=== PATIENT | female | born 1935 | race Caucasian/White ===

== ENCOUNTER → 2016-07-31 | Outpatient (CLI) | payer BC ==
[~2016-07-31] MED LIST: ADVIN10/60 INH; ALBU1AER9 INH; AMT10 PO; BISA1TAB15 PO; CHOL20009 PO; CLR10 PO; DICL1GEL12 TOP; DOCU100C31 PO; ENAL10TA PO; FAMO1TAB68 PO; FRRG PO; GLC500 PO; HYDR-3714 PO; IBUP-1428 PO; INSUINJ12 SC; IPRA1AER2 INH; LACT1CAP6 PO; LATA0.009 OPB; LPR25 PO; MULT-225 PO; NRN/300 PO; NVLGI/PEN SC; SIMV20TA5 PO; XRL10 PO
[2016-07-31 14:01] LABS: ESTIMATED AVERAGE GLUCOSE 169 mg/dl; HA1C FLAG Normal (Normal)
== END | disposition home or self-care (01) ==
LOC: C.LABBC 11:19
PROVIDERS: ATTEND Nurse Practitioner Family
DX: E11.49 Type 2 diabetes mellitus with other diabetic neurological complication (principal); E55.9 Vitamin D deficiency, unspecified

== ENCOUNTER → 2016-11-09 | Outpatient (CLI) | payer BC ==
[2016-11-10 06:13] LABS: ESTIMATED AVERAGE GLUCOSE 128 mg/dl; HA1C FLAG Normal (Normal)
== END | disposition home or self-care (01) ==
LOC: C.LABBC 14:27
PROVIDERS: ATTEND Nurse Practitioner Family
DX: E11.65 Type 2 diabetes mellitus with hyperglycemia (principal)

== ENCOUNTER → 2016-12-09 | Outpatient (CLI) | payer BC ==
[2016-12-09 13:21] LABS: BASO % 0.5 %; BASO ABS # 0.07 K/uL (0-0.2); COMPLETE YES; EOS % 2.4 %; HEMATOCRIT 39.3 % (37-47); IG% 0.4 %; LYMPH % 15.9 %; LYMPH ABS # 2.22 K/uL (1.2-3.4); MEAN CELL VOLUME 81.4 fL (80-100); MEAN CORPUSCULAR HEMOGLOBIN 23.6 pg (25-34); MEAN PLATELET VOLUME 10.2 fL (7.4-10.4); MONO % 5.6 %; NEUT % 75.2 %; PLATELET COUNT 242 K/uL (130-400); RED BLOOD COUNT 4.83 M/uL (4.2-5.4)
[2016-12-09 13:33] LABS: BLOOD UREA NITROGEN 22 mg/dl (7-18); BUN/CREATININE RATIO 28.7 (10-20); CALCIUM 9.8 mg/dl (8.5-10.1); CARBON DIOXIDE 29 mmol/L (21-32); CHLORIDE 104 mmol/L (98-107); CREATININE 0.77 mg/dl (0.60-1.20); GLUCOSE 92 mg/dl (70-99); PHOSPHORUS 3.6 mg/dl (2.5-4.9); SODIUM 142 mmol/L (136-145); URINE APPEARANCE CLEAR (CLEAR); URINE BILIRUBIN NEG (NEG); URINE COLOR YELLOW; URINE NITRITE NEG (NEG); URINE SPECIFIC GRAVITY 1.016 (1.000-1.030); UROBILINOGEN NEG (NEG); ZZUR CULT IF INDIC CLEAN CATCH NO
[2016-12-09 13:43] LABS: MANUAL MICROSCOPIC REQUIRED? NO; REVIEW REQ? NO
[2016-12-09 14:02] LABS: URINE PROTIEN/CREAT RATIO 1.3 (0-0.2); URINE TOTAL PROTEIN 72.3 mg/dl (0-11.9)
--- NOTE | 2016-12-14 07:23 | CODING QUERY MEDICAL NECESSITY ---
SUPPORTING DIAGNOSIS NEEDED A supporting diagnosis is required for the test/procedure performed on this patient in order for us to be reimbursed by the patient's insurance. Please provide a supporting diagnosis for the following test/procedure listed below next to the test name along with your signature. *If there is no additional diagnosis for this patient that would support the following test/procedure please document that below next to the test/procedure. Test(s)/Procedure(s) that require a supporting diagnosis: * VITAMIN D, 25- HYDROXY DIAGNOSIS: Provider Signature: Date: Thank you Ava Callahan [employer] Once completed, please kindly fax back to [phone] For questions please call [phone]
== END | disposition home or self-care (01) ==
LOC: C.LABBC 11:22
PROVIDERS: ATTEND Internal Medicine Nephrology
DX: E11.21 Type 2 diabetes mellitus with diabetic nephropathy (principal); E55.9 Vitamin D deficiency, unspecified

== ENCOUNTER → 2016-12-31 | Outpatient (CLI) | payer BC ==
--- NOTE | 2016-12-31 16:14 | DIAGNOSTIC IMAGING REPORT ---
CHEST 2 VIEWS ROUTINE CLINICAL HISTORY: J45.909 [id number] cough. Dyspnea. COMPARISON STUDY: 11/11/2015 FINDINGS: Vague parenchymal infiltrate right as well as left base. Diaphragms are smooth. Mid and upper lungs are clear. Partial right middle lobe atelectatic change IMPRESSION: Mild bibasilar parenchymal infiltrative change. Partial right middle lobe atelectatic change The above report was generated using voice recognition software. It may contain grammatical, syntax or spelling errors. Electronically signed by: Christiano Galeano M.D. 12/31/2016 4:13 PM Dictated Date/Time: 12/31/2016 4:10 PM
== END | disposition home or self-care (01) ==
LOC: C.RADBC 15:50
PROVIDERS: ATTEND Internal Medicine
DX: J45.909 Unspecified asthma, uncomplicated (principal); R09.02 Hypoxemia

== ENCOUNTER → 2017-02-15 | Outpatient (CLI) | payer BC ==
--- NOTE | 2017-02-15 15:09 | DIAGNOSTIC IMAGING REPORT ---
CHEST 2 VIEWS ROUTINE HISTORY: J18.9 [id number] COMPARISON: Chest 12/31/2016. FINDINGS: The right middle lobe consolidation/atelectasis has essentially resolved in the interval. No new focal lung consolidations to suggest pneumonia. No evidence for pulmonary edema. No pleural effusions. No pneumothorax. Stable mild cardiomegaly. Mild bibasilar interstitial thickening is likely chronic. IMPRESSION: The right middle lobe consolidation/atelectasis has essentially resolved in the interval. No new focal lung consolidations to suggest pneumonia. Electronically signed by: Kieran Phillips M.D. 02/15/2017 3:07 PM Dictated Date/Time: 02/15/2017 3:04 PM
[2017-02-15 16:47] LABS: BASO % 0.4 %; BASO ABS # 0.05 K/uL (0-0.2); COMPLETE YES; EOS % 1.6 %; HEMATOCRIT 35.1 % (37-47); IG% 0.4 %; LYMPH % 13.6 %; LYMPH ABS # 1.88 K/uL (1.2-3.4); MEAN CELL VOLUME 82.8 fL (80-100); MEAN CORPUSCULAR HEMOGLOBIN 25.5 pg (25-34); MEAN CORPUSCULAR HGB CONC 30.8 g/dl (32-36); MEAN PLATELET VOLUME 10.9 fL (7.4-10.4); MONO % 5.6 %; NEUT % 78.4 %; PLATELET COUNT 193 K/uL (130-400); RED BLOOD COUNT 4.24 M/uL (4.2-5.4); WHITE BLOOD COUNT 13.84 K/uL (4.8-10.8)
[2017-02-15 16:53] LABS: BLOOD UREA NITROGEN 20 mg/dl (7-18); BUN/CREATININE RATIO 24.4 (10-20); CALCIUM 9.7 mg/dl (8.5-10.1); CARBON DIOXIDE 31 mmol/L (21-32); CHLORIDE 103 mmol/L (98-107); GLUCOSE 111 mg/dl (70-99); MAGNESIUM 1.5 mg/dl (1.8-2.4); POTASSIUM 3.7 mmol/L (3.5-5.1); SODIUM 140 mmol/L (136-145)
[2017-02-15 17:01] LABS: PHOSPHORUS 3.1 mg/dl (2.5-4.9); TOTAL IRON BINDING CAPACITY 488 mcg/dl (250-450)
[2017-02-15 17:18] LABS: URINE PROTIEN/CREAT RATIO 0.3 (0-0.2); URINE TOTAL PROTEIN 45.1 mg/dl (0-11.9)
[2017-02-16 08:17] LABS: ESTIMATED AVERAGE GLUCOSE 143 mg/dl; HA1C FLAG Normal (Normal)
[2017-02-18 08:23] LABS: ALBUMIN 3.6 G/DL (3.8-4.8); ALBUMIN % 79.55 %; ALPHA-2-GLOBULIN % 5.56 %; BETA GLOBULIN % 8.55 %; CREATININE UR 159 MG/DL (20-320); FREE KAPPA 21.3 MG/L (3.3-19.4); FREE KAPPA/LAMBDA RATIO 0.97 (0.26-1.65); FREE LAMBDA 21.9 MG/L (5.7-26.3); GAMMA GLOBULIN % 5.05 %; TOTAL PROTEIN 7.3 G/DL (6.2-8.3)
== END | disposition home or self-care (01) ==
LOC: C.RADBC 14:33
PROVIDERS: ATTEND Physician Assistant
DX: J18.9 Pneumonia, unspecified organism (principal); R80.9 Proteinuria, unspecified; D64.9 Anemia, unspecified; E11.65 Type 2 diabetes mellitus with hyperglycemia

== ENCOUNTER → 2017-02-16 | Outpatient (CLI) | payer BC ==
[2017-02-16 14:41] LABS: CHOLESTEROL/HDL RATIO 3.6
== END | disposition home or self-care (01) ==
LOC: C.LABBC 11:19
PROVIDERS: ATTEND Nurse Practitioner Family
DX: E11.65 Type 2 diabetes mellitus with hyperglycemia (principal)

== ENCOUNTER → 2017-05-24 | Outpatient (CLI) | payer BC ==
[2017-05-25 06:16] LABS: ESTIMATED AVERAGE GLUCOSE 146 mg/dl; HA1C FLAG Normal (Normal)
== END | disposition home or self-care (01) ==
LOC: C.LABBC 13:06
PROVIDERS: ATTEND Nurse Practitioner Family
DX: E11.65 Type 2 diabetes mellitus with hyperglycemia (principal)

== ENCOUNTER → 2017-08-15 | Outpatient (CLI) | payer BC ==
[2017-08-15 13:26] LABS: BASO % 0.4 %; BASO ABS # 0.05 K/uL (0-0.2); EOS % 2.7 %; EOS ABS # 0.32 K/uL (0-0.5); HEMATOCRIT 35.5 % (37-47); HEMOGLOBIN 10.8 g/dL (12.0-16.0); IG# 0.05 K/uL (0.00-0.02); LYMPH % 14.4 %; LYMPH ABS # 1.73 K/uL (1.2-3.4); MEAN CORPUSCULAR HEMOGLOBIN 24.9 pg (25-34); MEAN CORPUSCULAR HGB CONC 30.4 g/dl (32-36); MEAN PLATELET VOLUME 10.3 fL (7.4-10.4); MONO % 5.2 %; MONO ABS # 0.63 K/uL (0.11-0.59); NEUT % 76.9 %; NEUT ABS # 9.25 K/uL (1.4-6.5); PLATELET COUNT 201 K/uL (130-400); RED CELL DISTRIBUTION WIDTH CV 16.4 % (11.5-14.5); RED CELL DISTRIBUTION WIDTH SD 49.5 fL (36.4-46.3); WHITE BLOOD COUNT 12.03 K/uL (4.8-10.8)
[2017-08-15 13:41] LABS: ALBUMIN 3.3 gm/dl (3.4-5.0); BLOOD UREA NITROGEN 12 mg/dl (7-18); CALCIUM 9.8 mg/dl (8.5-10.1); CARBON DIOXIDE 28 mmol/L (21-32); CREATININE 0.77 mg/dl (0.60-1.20); GLUCOSE 270 mg/dl (70-99); POTASSIUM 3.8 mmol/L (3.5-5.1); SODIUM 136 mmol/L (136-145)
[2017-08-15 13:42] LABS: PHOSPHORUS 2.8 mg/dl (2.5-4.9)
== END | disposition home or self-care (01) ==
LOC: C.LABBC 11:03
PROVIDERS: ATTEND Internal Medicine Nephrology
DX: N18.1 Chronic kidney disease, stage 1 (principal)

== ENCOUNTER → 2017-09-08 | Outpatient (CLI) | payer BC | END | disposition home or self-care (01) | LOC: C.LAB1850 15:02 | PROVIDERS: ATTEND Internal Medicine | DX: E11.9 Type 2 diabetes mellitus without complications (principal) ==

== ENCOUNTER → 2018-02-01 | Outpatient (CLI) | payer BC ==
[2018-02-01 17:19] LABS: BASO % 0.6 %; BASO ABS # 0.07 K/uL (0-0.2); EOS % 2.8 %; EOS ABS # 0.32 K/uL (0-0.5); HEMATOCRIT 38.6 % (37-47); HEMOGLOBIN 11.7 g/dL (12.0-16.0); IG# 0.03 K/uL (0.00-0.02); LYMPH % 24.2 %; LYMPH ABS # 2.77 K/uL (1.2-3.4); MEAN CELL VOLUME 81.6 fL (80-100); MEAN CORPUSCULAR HEMOGLOBIN 24.7 pg (25-34); MEAN CORPUSCULAR HGB CONC 30.3 g/dl (32-36); MEAN PLATELET VOLUME 11.1 fL (7.4-10.4); MONO ABS # 0.57 K/uL (0.11-0.59); NEUT % 67.1 %; NEUT ABS # 7.69 K/uL (1.4-6.5); PLATELET COUNT 216 K/uL (130-400); RED CELL DISTRIBUTION WIDTH SD 54.3 fL (36.4-46.3); WHITE BLOOD COUNT 11.45 K/uL (4.8-10.8)
[2018-02-01 17:33] LABS: ALBUMIN 3.3 gm/dl (3.4-5.0); ALKALINE PHOSPHATASE 70 U/L (45-117); ALT/SGPT 19 U/L (12-78); AST/SGOT 16 U/L (15-37); BLOOD UREA NITROGEN 18 mg/dl (7-18); CALCIUM 9.5 mg/dl (8.5-10.1); CARBON DIOXIDE 27 mmol/L (21-32); CHOLESTEROL 219 mg/dl (0-200); CREATININE 0.94 mg/dl (0.60-1.20); GLUCOSE 313 mg/dl (70-99); LDL CHOLESTEROL CALCULATED 104 mg/dl; POTASSIUM 4.2 mmol/L (3.5-5.1); SODIUM 134 mmol/L (136-145); TOTAL PROTEIN 8.1 gm/dl (6.4-8.2)
[2018-02-02 06:03] LABS: HEMOGLOBIN A1C 9.7 % (4.5-5.6)
== END | disposition home or self-care (01) ==
LOC: C.LABBC 12:19
PROVIDERS: ATTEND Internal Medicine
DX: I12.9 Hypertensive chronic kidney disease with stage 1 through stage 4 chronic kidney disease, or unspecified chronic kidney disease (principal); E78.5 Hyperlipidemia, unspecified; I48.0 Paroxysmal atrial fibrillation; J44.9 Chronic obstructive pulmonary disease, unspecified; E11.21 Type 2 diabetes mellitus with diabetic nephropathy; R09.02 Hypoxemia; E11.29 Type 2 diabetes mellitus with other diabetic kidney complication; N18.1 Chronic kidney disease, stage 1

== ENCOUNTER 2021-08-03 15:41 | Observation (INO) ==
[2021-08-03] MEDS ORDERED: fentaNYL citrate 100 MCG/2 ML VIAL IV STA ×2 (16:06→20:49)
[2021-08-03] MEDS ORDERED: ACETAMINOPHEN 1,000 MG/100 ML VIAL IV STA (16:06)
--- NOTE | 2021-08-03 16:10 | Emergency Department Note ---
History of Present Illness General Chief complaint: Fall Time Seen by Provider: 08/03/21 15:59 Source: patient Mode of arrival: EMS Limitations: no limitations History of Present Illness Provider complaint: head injury Associated symptoms: + headaches; no chest pain, no fever/chills or no nausea/vomiting Treatments prior to arrival: none This is a 6-year female presents emergency department following a fall with head trauma. Patient states she was seated on a rolling walker as her friend had taken her to a recent appointment. She states she fell backwards off the walker striking her head. Patient denies loss of consciousness. Patient states she does have a headache and feels a bump growing on the back of her head, however denies neck or back pain, nausea or vomiting, dizziness, or blurred vision. Patient does not believe she takes any antiplatelet or anticoagulation therapy. Patient denies any other concern for injury or other areas of pain. Patient was noted by nursing staff to have markedly elevated blood pressure. Patient believes her blood pressure is usually normal. Patient is uncertain if she takes medication specifically for blood pressure. Pt seen during a time of high acuity and national emergency pandemic while wearing PPE. Home Medications Medication Instructions Recorded Confirmed Type acetaminophen 650 mg 1,300 mg PO Q12H 08/22/18 08/03/21 History tablet,extended release (Tylenol Arthritis Pain) albuterol sulfate 90 mcg/actuation 2 puff INHALATION Q6H PRN 08/22/18 08/03/21 History aerosol inhaler (ProAir HFA) loratadine 10 mg capsule 10 mg PO DAILY PRN 08/22/18 08/03/21 History multivitamin 1 tab PO QAM 08/22/18 08/03/21 History polyethylene glycol 3350 17 gram 17 g PO DAILY PRN 08/22/18 08/03/21 History oral powder packet (Miralax) rivaroxaban 20 mg tablet (Xarelto) 20 mg PO DAILY 08/22/18 08/03/21 History Lactobacillus 1 cap PO DAILY cap 03/13/19 08/03/21 History acidophilus-Bifidobac.animalis 31 billion cell capsule bisacodyl 5 mg tablet,delayed 5 mg PO DAILY PRN tab 03/13/19 08/03/21 History release blood-glucose meter (OneTouch #1 ea 03/13/19 08/03/21 History Verio Flex Start) metoprolol succinate 25 mg 25 mg PO BID tab 03/13/19 08/03/21 History tablet,extended release 24 hr lidocaine HCl 2 % mucosal solution 1 appln MUCOUS MEMBRANE TID PRN 11/20/19 08/03/21 Rx (Lidocaine Viscous) #100 ml docusate sodium 100 mg capsule 100 mg PO QAM PRN 12/19/19 08/03/21 History fluticasone 100 mcg-salmeterol 50 1 puffs INHALATION BID PRN ea 12/19/19 08/03/21 History mcg/dose blistr powdr for inhalation (Advair Diskus) ramipril 10 mg capsule 10 mg PO QAM #30 cap 06/18/20 08/03/21 Rx OneTouch Verio test strips (blood #400 ea NS 09/29/20 08/03/21 Rx sugar diagnostic) cholecalciferol (vitamin D3) 50 12,000 unit PO DAILY tab 12/15/20 08/03/21 History mcg (2,000 unit) tablet (Vitamin D3) metformin 500 mg tablet,extended 500 mg PO BID 12/29/20 08/03/21 History release 24 hr Humulin 70/30 U-100 Insulin See Rx Instructions SQ QAM #30 ml 01/05/21 08/03/21 Rx KwikPen 100 unit/mL subcutaneous NS (insulin NPH and regular human) rosuvastatin 40 mg tablet 40 mg PO DAILY #90 tab 04/09/21 08/03/21 Rx Novofine 32 32 gauge x 1/4" needle #200 ea NS 04/27/21 08/03/21 Rx (pen needle, diabetic) tramadol 50 mg tablet 100 mg PO TID PRN #180 tab 06/18/21 08/03/21 Rx oxybutynin 3.9 mg/24 hr semiweekly See Rx Instructions .ROUTE 06/26/21 08/03/21 Rx transdermal patch (Oxytrol) .COMPLEX #8 patch diclofenac sodium 1 % topical gel 4 g TOPICAL QID PRN g 07/10/21 08/03/21 History duloxetine 20 mg capsule,delayed 20 mg PO QAM #30 cap 07/10/21 08/03/21 Rx release estradiol See Rx Instructions VAGINAL 07/10/21 08/03/21 History .COMPLEX PRN g nystatin 100,000 unit/gram topical 1 applic TOP BID PRN #60 g 07/10/21 08/03/21 Rx powder Allergies Allergy/AdvReac Type Severity Reaction Status Date / Time erythromycin base Allergy Intermediate RASH, Verified 08/03/21 16:26 VOMITING zolpidem [From Ambien] Allergy Unknown Unknown Verified 08/03/21 16:26 atorvastatin AdvReac Intermediate MYALGIA Verified 08/03/21 16:26 rosuvastatin AdvReac Intermediate MYALGIA Verified 08/03/21 16:26 Past Med/Surg History Medical History Asthma RARELY USES PRN INH Chronic kidney disease, stage I Chronic pain syndrome Chronic renal insufficiency COPD exacerbation Insomnia Loss of protective sensation of skin of foot On home oxygen therapy 2 LPM PRN Osteoarthritis Vaginitis Surgical History History of cataract surgery History of colonoscopy with polypectomy History of hysterectomy History of tonsillectomy History of tooth extraction History of total knee replacement RT History of tubal ligation Family History Brother Anxiety Pancreatic cancer Mother Malignant neoplasm of brain Throat cancer Father Malignant neoplasm of urinary bladder Daughter Pancreatic cancer Denies family history of Ovarian cancer Prostate cancer Myocardial infarction Breast cancer Lung cancer Colorectal cancer Social History Smoking Status: Former smoker Age Started Using Tobacco: 17; Age Quit Using Tobacco: 66; packs per day: 1; Cigarettes Per Day: 1 pack per day; Number of Years Since Quit: 5; Second Hand Exposure: No; Hx Alcohol Use: Yes Alcohol type: hard liquor Alcohol Intake Frequency: Monthly or Less Alcohol Intake Frequency Comment: very rarely Hx Substance Use: No Preferred Language: Kenyan Communication Ability: Effective Visual Impairment: Limited Hearing Ability: Use of Hearing Aid Town Clerk Required: No Beliefs That Will Affect Care: None marital status: / Current Living Situation: Family Current Living Situation Comment: home with 2 sons current occupational status: retired How many Children do You have: 3 Feels Safe at Home: Yes Childhood Exposure to Second-Hand Smoke: No caffeine: Yes (drinks coffee in morning ) Dental Care, Regularly: Yes Physical Activity Frequency: Does not Exercise Seatbelt Use: always Sunscreen Use: Yes Assistive Devices: Walker Review of Systems A total of 10 systems reviewed and were otherwise negative All systems reviewed & are unremarkable except as noted in HPI & below Physical Exam Vital Signs Vital Signs - 24 hr 08/03/21 16:13 08/03/21 16:16 08/03/21 16:30 Temperature 37 C 37 C Temperature Source Oral Oral Pulse Rate 72 Pulse Rate [Apical] 71 64 Pulse Rhythm [Apical] Regular Regular Pulse Strength [Apical] Normal Respiratory Rate 16 16 19 Respiratory Effort / Characteristics Non-Labored Non-Labored Non-Labored Spontaneous Respiratory Depth Normal Normal Normal Respiratory Pattern Regular Blood Pressure 250/135 H Blood Pressure [Left Arm] 250/135 H Blood Pressure [Right Arm] 223/120 H Blood Pressure Mean 173 Blood Pressure Mean [Left Arm] 173 Blood Pressure Mean [Right Arm] 154 Blood Pressure Position [Right Arm] Semi-fowlers Pulse Oximetry 93 93 89 L Oxygen Delivery Method Room Air Room Air Room Air Oxygen Flow Rate Sepsis Recent Fever Within 48 Hours No Sepsis New/Unexplained Change in Mental Status No Sepsis Action Taken by Nursing No Action Required Oxygen Flow Rate - Titration Pulse Oximetry Post Tiitration 08/03/21 16:41 08/03/21 17:34 08/03/21 20:03 Temperature Temperature Source Pulse Rate Pulse Rate [Apical] 62 69 Pulse Rhythm [Apical] Regular Regular Pulse Strength [Apical] Respiratory Rate 16 15 Respiratory Effort / Characteristics Respiratory Depth Normal Normal Respiratory Pattern Blood Pressure Blood Pressure [Left Arm] Blood Pressure [Right Arm] 189/91 H 241/111 H Blood Pressure Mean Blood Pressure Mean [Left Arm] Blood Pressure Mean [Right Arm] 123 154 Blood Pressure Position [Right Arm] Pulse Oximetry 90 94 98 Oxygen Delivery Method Nasal Cannula Nasal Cannula Room Air Oxygen Flow Rate 0 1 Sepsis Recent Fever Within 48 Hours Sepsis New/Unexplained Change in Mental Status Sepsis Action Taken by Nursing Oxygen Flow Rate - Titration 1 Pulse Oximetry Post Tiitration 97 08/03/21 22:01 Temperature Temperature Source Pulse Rate Pulse Rate [Apical] 69 Pulse Rhythm [Apical] Pulse Strength [Apical] Respiratory Rate 17 Respiratory Effort / Characteristics Respiratory Depth Respiratory Pattern Blood Pressure Blood Pressure [Left Arm] Blood Pressure [Right Arm] 203/94 H Blood Pressure Mean Blood Pressure Mean [Left Arm] Blood Pressure Mean [Right Arm] 130 Blood Pressure Position [Right Arm] Pulse Oximetry 96 Oxygen Delivery Method Nasal Cannula Oxygen Flow Rate 2 Sepsis Recent Fever Within 48 Hours Sepsis New/Unexplained Change in Mental Status Sepsis Action Taken by Nursing Oxygen Flow Rate - Titration Pulse Oximetry Post Tiitration GENERAL: alert, well appearing, well nourished, no distress, non-toxic HEAD: nc, contusion noted posterior head, no arriaga sign, no raccoon eyes, no evidence of facial trauma EYE EXAM: normal conjunctiva, PERRL and EOM's grossly intact OROPHARYNX: no exudate, no erythema, lips, buccal mucosa, and tongue normal and mucous membranes are moist NECK: supple, no nuchal rigidity, no adenopathy, non-tender, FROM LUNGS: Clear to auscultation. Normal chest wall mechanics, no w/r/r HEART: no murmurs, S1 normal and S2 normal ABDOMEN: abdomen soft, non-tender, normo-active bowel sounds, no masses, no rebound or guarding. BACK: Back is symmetrical on inspection and there is no deformity, no midline tenderness, no CVA tenderness. SKIN: no rashes and no bruising UPPER EXTREMITIES: upper extremities are grossly normal. FROM, nml pulses b/l. LOWER EXTREMITIES: No pitting edema. FROM, nml pulses b/l. NEURO EXAM: Normal sensorium, cranial nerves II-XII grossly intact, normal speech, no gross weakness of arms, no gross weakness of legs. Gross sensation intact. Course Administered Medications Discontinued Medications Acetaminophen (Acetaminophen 325 Mg Tab) Confirm Administered Dose 650 mg .ROUTE .STK-MED ONE Stop: 08/04/21 01:33 Last Admin: 08/04/21 02:13 Dose: Not Given Documented by: [id number] Acetaminophen (Acetaminophen 325 Mg Tab) 650 mg PO Q4H PRN PRN Reason: Pain or Fever Stop: 09/03/21 01:57 Last Admin: 08/05/21 05:22 Dose: 650 mg Documented by: [id number] Admin: 08/04/21 17:02 Dose: 650 mg Documented by: [id number] Admin: 08/04/21 11:47 Dose: 650 mg Documented by: [id number] Admin: 08/04/21 02:13 Dose: 650 mg Documented by: [id number] Amlodipine Besylate (Amlodipine Besylate 5 Mg Tab) 5 mg PO NOW ONE Stop: 08/03/21 19:10 Last Admin: 08/03/21 19:48 Dose: 5 mg Documented by: [id number] Duloxetine HCl (Duloxetine Hcl 20 Mg Cap) [facility] Stop: 09/03/21 08:59 Last Admin: 08/05/21 09:29 Dose: 20 mg Documented by: [id number] Admin: 08/04/21 10:18 Dose: 20 mg Documented by: [id number] Enalapril Maleate (Enalapril Maleate 10 Mg Tab) 40 mg PO QA KEV Stop: 09/03/21 08:59 Last Admin: 08/05/21 09:28 Dose: 40 mg Documented by: [id number] Admin: 08/04/21 10:19 Dose: 40 mg Documented by: [id number] Fentanyl Citrate (Fentanyl Citrate 100 Mcg/2 Ml Vial) 50 mcg IV NOW STA Stop: 08/03/21 16:07 Last Admin: 08/03/21 16:28 Dose: 50 mcg Documented by: [id number] Fentanyl Citrate (Fentanyl Citrate 100 Mcg/2 Ml Vial) 50 mcg IV NOW STA Stop: 08/03/21 20:50 Last Admin: 08/03/21 21:16 Dose: 50 mcg Documented by: [id number] Hydralazine HCl (Hydralazine Hcl 20 Mg/Ml Vial) 10 mg IV Q4H PRN PRN Reason: Blood Pressure - High Stop: 09/03/21 01:57 Last Admin: 08/05/21 05:17 Dose: 10 mg Documented by: [id number] Admin: 08/04/21 23:01 Dose: 10 mg Documented by: [id number] Admin: 08/04/21 03:50 Dose: 10 mg Documented by: [id number] Acetaminophen (Ofirmev) 1,000 mg in 100 mls @ 400 mls/hr IV NOW STA Stop: 08/03/21 16:20 Last Infusion: 08/03/21 17:04 Dose: 0 mls/hr Documented by: [id number] Admin: 08/03/21 16:28 Dose: 400 mls/hr Documented by: [id number] Sodium Chloride (Nss 1000ml) 1,000 mls @ 75 mls/hr IV .[id number] KEV Stop: 09/02/21 16:59 Last Infusion: 08/05/21 09:23 Dose: 0 mls/hr Documented by: [id number] Infusion: 08/05/21 07:05 Dose: 0 mls/hr Documented by: [id number] Admin: 08/04/21 23:40 Dose: 75 mls/hr Documented by: [id number] Infusion: 08/04/21 23:40 Dose: 75 mls/hr Documented by: [id number] Admin: 08/04/21 10:47 Dose: 75 mls/hr Documented by: [id number] Infusion: 08/04/21 10:47 Dose: 0 mls/hr Documented by: [id number] Admin: 08/04/21 10:26 Dose: Not Given Documented by: [id number] Infusion: 08/03/21 18:07 Dose: 0 mls/hr Documented by: [id number] Admin: 08/03/21 17:04 Dose: 125 mls/hr Documented by: [id number] Magnesium Sulfate/Dextrose (Magnesium Sulfate / D5w) 1 gm in 100 mls @ 100 mls/hr IV NOW STA Stop: 08/03/21 19:04 Last Infusion: 08/03/21 19:48 Dose: 0 mls/hr Documented by: [id number] Admin: 08/03/21 18:21 Dose: 100 mls/hr Documented by: [id number] Magnesium Sulfate/Dextrose (Magnesium Sulfate / D5w) 1 gm in 100 mls @ 50 mls/hr IV Q2H KEV Stop: 08/04/21 02:55 Last Infusion: 08/04/21 04:03 Dose: 0 mls/hr Documented by: [id number] Admin: 08/04/21 01:34 Dose: 50 mls/hr Documented by: [id number] Infusion: 08/04/21 01:33 Dose: 0 mls/hr Documented by: [id number] Admin: 08/03/21 23:15 Dose: 50 mls/hr Documented by: [id number] Insulin Aspart (Insulin Aspart Per Unit) 0 units SC ACHS KEV Stop: 09/03/21 07:29 Last Admin: 08/05/21 11:56 Dose: 3 units Documented by: [id number] Cosigned by: [id number] Admin: 08/05/21 08:15 Dose: Not Given Documented by: [id number] Admin: 08/04/21 23:36 Dose: Not Given Documented by: [id number] Admin: 08/04/21 17:35 Dose: Not Given Documented by: [id number] Admin: 08/04/21 13:29 Dose: 1 units Documented by: [id number] Cosigned by: [id number] Admin: 08/04/21 10:32 Dose: 2 units Documented by: [id number] Cosigned by: [id number] Insulin Human Isoph/Insulin Regular (Insulin Human 70% Nph/30% Regular) 50 units SQ QAM KEV Stop: 09/03/21 08:59 Last Admin: 08/05/21 09:30 Dose: 50 units Documented by: [id number] Cosigned by: [id number] Admin: 08/04/21 10:28 Dose: 50 units Documented by: [id number] Cosigned by: [id number] Labetalol HCl (Labetalol Hcl Iv 5 Mg/Ml 20ml) 10 mg IV NOW STA Stop: 08/03/21 20:50 Last Admin: 08/03/21 21:16 Dose: 10 mg Documented by: [id number] Cosigned by: [id number] Lactobacillus Acidophilus (Advanced Probiotic 1250 Mg Capsule) 2 cap PO DAILY KEV Stop: 09/03/21 08:59 Last Admin: 08/05/21 09:28 Dose: 2 cap Documented by: [id number] Admin: 08/04/21 10:21 Dose: 2 cap Documented by: [id number] Metoprolol Succinate (Metoprolol Succ 25mg Ext Rel Tab) 25 mg PO BID KEV Stop: 09/03/21 01:57 Last Admin: 08/05/21 09:27 Dose: 25 mg Documented by: [id number] Admin: 08/04/21 23:55 Dose: 25 mg Documented by: [id number] Admin: 08/04/21 10:22 Dose: 25 mg Documented by: [id number] Admin: 08/04/21 04:36 Dose: 25 mg Documented by: [id number] Metoprolol Tartrate (Metoprolol Tartrate 50 Mg Tab) 50 mg PO NOW STA Stop: 08/03/21 22:49 Last Admin: 08/03/21 23:15 Dose: 50 mg Documented by: [id number] Miscellaneous (Oxybutynin [Oxytrol]: Order Awaiting Action) 1 ea N/A DAILY KEV Stop: 09/03/21 08:59 Last Admin: 08/05/21 09:30 Dose: Not Given Documented by: [id number] Admin: 08/04/21 10:23 Dose: Not Given Documented by: [id number] Multivitamins (Multivitamin Tab) 1 tab PO QAM KEV Stop: 09/03/21 08:59 Last Admin: 08/05/21 09:28 Dose: 1 tab Documented by: [id number] Admin: 08/04/21 10:22 Dose: 1 tab Documented by: [id number] Non-Formulary Medication (Acetaminophen [Tylenol Arthritis Pain]) 1,300 mg PO Q12H KEV Stop: 09/03/21 01:57 Last Admin: 08/04/21 04:03 Dose: Not Given Documented by: [id number] Rivaroxaban (Rivaroxaban 20 Mg Tab) 20 mg PO QDD KEV Stop: 09/03/21 16:29 Last Admin: 08/04/21 17:35 Dose: 20 mg Documented by: [id number] Rosuvastatin Calcium (Rosuvastatin Calcium 20 Mg Tab) 40 mg PO DAILY KEV Stop: 09/03/21 08:59 Last Admin: 08/05/21 09:28 Dose: 40 mg Documented by: [id number] Admin: 08/04/21 10:23 Dose: 40 mg Documented by: [id number] Tramadol HCl (Tramadol Hcl 50 Mg Tablet) 100 mg PO NOW STA Stop: 08/03/21 19:03 Last Admin: 08/03/21 19:47 Dose: 100 mg Documented by: [id number] Tramadol HCl (Tramadol Hcl 50 Mg Tablet) 100 mg PO TID PRN PRN Reason: pain Stop: 09/03/21 01:57 Last Admin: 08/05/21 09:27 Dose: 100 mg Documented by: [id number] Admin: 08/04/21 19:59 Dose: 100 mg Documented by: [id number] Admin: 08/04/21 12:02 Dose: 100 mg Documented by: [id number] Admin: 08/04/21 02:55 Dose: 100 mg Documented by: [id number] Vitamin D (Cholecalciferol 5,000 Units 125 Mcg Tab) 12,500 units PO DAILY KEV Stop: 09/03/21 08:59 Last Admin: 08/05/21 09:28 Dose: 12,500 units Documented by: [id number] Admin: 08/04/21 10:16 Dose: 12,500 units Documented by: [id number] Critical Care Time Critical Care Time: Yes Total Critical Care Time: 56 Critical care of 56 min performed to assess and manage high likelihood of life- threatening hypertension, involving labs and imaging performed with assessment to evaluate hypertension and trauma diagnosis with frequent reassessment. This time includes bedside time, treatment discussions with patient/family/consultants, documentation time and excludes procedure time. Medical Decision Making Differential Diagnosis Differential diagnoses include major intracranial, cervical, spinal, thoracic, abdominal, pelvic and neurologic injury. Fracture, contusion, sprain, strain, laceration, abrasions included as well. Medical Records Attestation: I reviewed the patient's medical records. Home Medications Current Medication List: was personally reviewed by [place] Laboratory Data Attestation: I reviewed the patient's lab results. Result diagrams: 08/05/21 06:13 08/05/21 06:13 Lab Results 08/03/21 08/03/21 08/03/21 Range/Units 16:15 16:15 17:27 WBC 11.33 H (4.8-10.8) K/uL RBC 4.46 (4.2-5.4) M/uL Hgb 11.1 L (12.0-16.0) g/dL Hct 38.4 (37-47) % MCV 86.1 (80-100) fL MCH 24.9 L (25-34) pg MCHC 28.9 L (32-36) g/dL RDW Std Deviation 49.1 H (36.4-46.3) fL RDW Coeff of Yohannes 15.4 H (11.5-14.5) % Plt Count 177 (130-400) K/uL MPV 10.9 H (7.4-10.4) fL Immature Gran % (Auto) 0.4 % Neut % (Auto) 77.6 % Lymph % (Auto) 11.7 % [place] % (Auto) 7.5 % Eos % (Auto) 2.6 % Baso % (Auto) 0.2 % Neut # (Auto) 8.80 H (1.4-6.5) K/uL Lymph # (Auto) 1.32 (1.2-3.4) K/uL [place] # (Auto) 0.85 H (0.11-0.59) K/uL Eos # (Auto) 0.30 (0-0.5) K/uL Baso # (Auto) 0.02 (0-0.2) K/uL Immature Gran # (Auto) 0.04 H (0.00-0.02) K/uL Polychromasia 1+ Hypochromasia Present Sodium 138 (136-145) mmol/L Potassium TNP 4.2 Chloride 104 (98-107) mmol/L Carbon Dioxide 26 (21-32) mmol/L Anion Gap 8 (3-11) BUN 27 H (6-23) mg/dl Creatinine 0.81 (0.6-1.2) mg/dl Est Cr Clr Drug Dosing 47.0 ml/min Est GFR ( Amer) 76.8 ml/min Est GFR (Non-Af Amer) 66.2 ml/min BUN/Creatinine Ratio 33.3 H (10-20) Glucose 150 H (70-99(Fasting)) mg/dl POC Glucose (70-99) mg/dl Calcium 9.3 (8.5-10.1) mg/dl Magnesium 1.6 L (1.7-2.4) mg/dl Total Bilirubin 0.3 (0.2-1.0) mg/dl AST TNP 22 ALT 16 (7-52) U/L Alkaline Phosphatase 118 H (34-104) U/L Total Protein 7.3 (6.0-8.3) gm/dl Albumin 3.6 (3.4-5.0) gm/dl Globulin 3.7 (2.5-4.0) gm/dl Albumin/Globulin Ratio 1.0 (0.9-2) SARS-CoV-2, RNA, NAAT (NEGATIVE) 08/03/21 08/03/21 08/03/21 Range/Units 19:33 21:30 22:16 WBC (4.8-10.8) K/uL RBC (4.2-5.4) M/uL Hgb (12.0-16.0) g/dL Hct (37-47) % MCV (80-100) fL MCH (25-34) pg MCHC (32-36) g/dL RDW Std Deviation (36.4-46.3) fL RDW Coeff of Yohannes (11.5-14.5) % Plt Count (130-400) K/uL MPV (7.4-10.4) fL Immature Gran % (Auto) % Neut % (Auto) % Lymph % (Auto) % [place] % (Auto) % Eos % (Auto) % Baso % (Auto) % Neut # (Auto) (1.4-6.5) K/uL Lymph # (Auto) (1.2-3.4) K/uL [place] # (Auto) (0.11-0.59) K/uL Eos # (Auto) (0-0.5) K/uL Baso # (Auto) (0-0.2) K/uL Immature Gran # (Auto) (0.00-0.02) K/uL Polychromasia Hypochromasia Sodium (136-145) mmol/L Potassium Chloride (98-107) mmol/L Carbon Dioxide (21-32) mmol/L Anion Gap (3-11) BUN (6-23) mg/dl Creatinine (0.6-1.2) mg/dl Est Cr Clr Drug Dosing ml/min Est GFR ( Amer) ml/min Est GFR (Non-Af Amer) ml/min BUN/Creatinine Ratio (10-20) Glucose (70-99(Fasting)) mg/dl POC Glucose 100 H 161 H (70-99) mg/dl Calcium (8.5-10.1) mg/dl Magnesium (1.7-2.4) mg/dl Total Bilirubin (0.2-1.0) mg/dl AST ALT (7-52) U/L Alkaline Phosphatase (34-104) U/L Total Protein (6.0-8.3) gm/dl Albumin (3.4-5.0) gm/dl Globulin (2.5-4.0) gm/dl Albumin/Globulin Ratio (0.9-2) SARS-CoV-2, RNA, NAAT NEGATIVE (NEGATIVE) Imaging Data My Impression: X-ray: I interpreted the following studies. Chest: A single view study of the chest was reviewed and was negative for focal infiltrate, effusion, pulmonary edema, or wide mediastinum. No obvious rib fracture or pneumothorax. MIld CM noted. Radiologist's Impression: Cervical Spine CT 08/03/21 16:05 CT cervical spine wo con CT DOSE: 1025.11 mGy.cm CLINICAL HISTORY: 86 years-old Female with trauma. Acute head and neck injury COMPARISON: Head CT of same day TECHNIQUE: Multiple axial CT images of the cervical spine were obtained without contrast. A dose lowering technique was utilized adhering to the principles of ALARA. FINDINGS: Vertebral straightening of the normal cervical lordosis. Multilevel intervertebral disc space narrowing, severe at C4-C5, C5-C6 and C6 or C7. Advanced spondylitic spurring and facet arthrosis is also noted. Grade 1 anterolisthesis is noted at C3 on C4, C4 on C5 and C7 on T1, likely degenerative related. Partially calcified pannus posterior to odontoid process. No acute fra cture or subluxation. Multilevel neural foraminal narrowing. The mastoid air cells are clear. Mild mucosal thickening of the right maxillary sinus. Several missing teeth are noted in addition to dental caries and periapical cysts. The cervical soft tissues appear unremarkable. Intralobular septal thickening of the lung apices. No pneumothorax. Calcified plaque of the carotid arteries and thoracic aortic arch. IMPRESSION: No acute cervical spine fracture. ACT 112: Negative or not required by law. The above report was generated using voice recognition software. It may contain grammatical, syntax or spelling errors. Electronically signed by: Kenrick Shrestha M.D. 08/03/2021 5:[address] 08/03/21 16:05 CT head/brain wo con CLINICAL HISTORY: trauma Technique: Contiguous axial CT images of the head were acquired from the base of the skull to the vertex without intravenous contrast administration. Images were viewed in brain, subdural and bone windows. Automated dose lowering techniques and/or adjustment according to patient size were utilized for this exam. Comparison: None available at the time of this dictation. Findings: Areas of decreased attenuation are present in the periventricular and subcortical white matter bilaterally consistent with small vessel ischemic disease. Generalized cerebral atrophy with commensurate enlargement of the ventricles, sulci, and cisterns is also present. There is no acute intracranial hemorrhage or evidence of acute territorial infarction. No shift of the midline structures, mass effect, or extra-axial abnormalities are shown. Atherosclerotic calcifications are present in the intracranial segments of the internal carotid arteries. Encephalomalacia is seen in the left occipital region. No intracranial hemorrhage is seen. Imaged portions of the paranasal sinuses and mastoid air cells are clear. The orbits appear normal. There are no acute fractures of the calvaria. Soft tissue swelling is seen in the posterior right scalp. Impression: Soft tissue swelling without evidence of acute fracture. No intracranial hemorrhage. ACT 112: Negative or not required by law. Electronically signed by: Osvaldo Sanchez M.D. 08/03/2021 5:01 PM Chest X-Ray 08/03/21 16:06 XR chest 1V portable CLINICAL HISTORY: trauma TECHNIQUE: Single frontal radiograph of the chest was obtained. Comparison: Comparison is made to chest one view 12/07/2014 FINDINGS: No lines and tubes are seen. Cardiomegaly is noted. The lungs are clear. No evidence of pleural effusion or pneumothorax. IMPRESSION: Cardiomegaly. No acute abnormality. ACT 112: Negative or not required by law. Electronically signed by: Osvaldo Sanchez M.D. 08/03/2021 5:00 PM ECG Data Attestation: I personally reviewed and interpreted this ECG as follows: Indication: + nausea Rate (beats per minute): 65 Rhythm: + normal sinus ECG Intervals/blocks: + Normal QRS and + Normal QT ECG [place]: + Normal ECG ST segments: + Normal ST segments MDM Narrative This is an 86-year-old female who presents following a fall with obvious scalp contusion. Patient denied loss of consciousness or any concern for any other injuries. Patient sent for CT and x-ray imaging due to advanced age and concurrent use of anticoagulation. No acute intracranial hemorrhage or other evidence of acute trauma was noted. Patient noted to be significantly hypertensive on arrival, initially this was thought to be secondary to pain and she was given IV Tylenol and IV fentanyl. Patient did have some mild improvement, however blood pressure continued to be elevated. Patient's magnesium was repleted, she was cautiously rehydrated, other labs that have been sent were reassuring. Patient continued to complain of headache, no other new or evolving symptoms or concern for injury. Patient was given additional antihypertensive medication with minimal improvement. Patient given additional IV antihypertensive medication and I discussed with them possible need for inpatient monitoring due to significant blood pressure elevation. Patient was given multiple medications for both pain and high blood pressure. Patient had normal and nonfocal neuro exam throughout. Patient was rechecked numerous times due to concern. Case discussed with hospitalist for additional evaluation and management. I have a low suspicion for any additional occult traumatic injury. An order was placed for continuous cardiac monitoring. The monitor shows a rate of _80__ with _normal sinus__ rhythm. Impression & Plan CHI (closed head injury), Hypertension, Contusion of scalp, Fall, Hypomagne semia Discharge Plan Visit Data Chief Complaint: Fall ED Provider: Jennifer Gonzalez Discharge Problem: CHI (closed head injury), Hypertension, Contusion of scalp, Fall, Hypomagnesemia Patient Disposition: Home - Self-Care Condition: Good Discharge Instructions Interventions: ED Discharge Assessment Last Done: 08/04/21 19:00
[2021-08-03 16:43] LABS: Hematocrit (blood only) 38.4 % (37-47); Hemoglobin 11.1 g/dL (12.0-16.0); Mean Corpuscular Hemoglobin 24.9 pg (25-34); Mean Corpuscular Hgb Conc 28.9 g/dL (32-36); Mean Corpuscular Volume 86.1 fL (80-100); Mean Platelet Volume 10.9 fL (7.4-10.4); Platelet Count 177 K/uL (130-400); RDW Coefficient of Variation 15.4 % (11.5-14.5); RDW Standard Deviation 49.1 fL (36.4-46.3); Red Blood Count 4.46 M/uL (4.2-5.4); White Blood Count 11.33 K/uL (4.8-10.8)
[2021-08-03 16:45] LABS: Basophils # (auto) 0.02 K/uL (0-0.2); Basophils % (auto) 0.2 %; Eosinophils % (auto) 2.6 %; Hypochromasia Present; Immature Granulocytes # (auto) 0.04 K/uL (0.00-0.02); Immature Granulocytes % (auto) 0.4 %; Lymphocytes # (auto) 1.32 K/uL (1.2-3.4); Lymphocytes % (auto) 11.7 %; Monocytes # (auto) 0.85 K/uL (0.11-0.59); Monocytes % (auto) 7.5 %; Neutrophils % (auto) 77.6 %; Polychromasia 1+
[2021-08-03 16:51] LABS: Alanine Aminotransferase 16 U/L (7-52); Albumin Level 3.6 gm/dl (3.4-5.0); Alkaline Phosphatase 118 U/L (34-104); Anion Gap 8 (3-11); BUN Creatinine Ratio 33.3 (10-20); Bilirubin,Total 0.3 mg/dl (0.2-1.0); Blood Urea Nitrogen 27 mg/dl (6-23); Calcium 9.3 mg/dl (8.5-10.1); Carbon Dioxide 26 mmol/L (21-32); Chloride 104 mmol/L (98-107); Est GFR (African American) 76.8 ml/min; Est GFR (Non-African American) 66.2 ml/min; Globulin 3.7 gm/dl (2.5-4.0); Glucose 150 mg/dl (70-99(Fasting)); Sodium 138 mmol/L (136-145); Total Protein 7.3 gm/dl (6.0-8.3)
[2021-08-03] MEDS: SODIUM CHLORIDE 0.9% 1000ML 1,000 ML IV SCH (17:04)
--- NOTE | 2021-08-03 17:06 | XRay Report ---
XR chest 1V portable CLINICAL HISTORY: trauma TECHNIQUE: Single frontal radiograph of the chest was obtained. Comparison: Comparison is made to chest one view 12/07/2014 FINDINGS: No lines and tubes are seen. Cardiomegaly is noted. The lungs are clear. No evidence of pleural effus ion or pneumothorax. IMPRESSION: Cardiomegaly. No acute abnormality. ACT 112: Negative or not required by law. Electronically signed by: Osvaldo Sanchez M.D. 08/03/2021 5:00 PM
--- NOTE | 2021-08-03 17:07 | CT Scan Report ---
CT head/brain wo con CLINICAL HISTORY: trauma Technique: Contiguous axial CT images of the head were acquired from the base of the skull to the sammy danny without intravenous contrast administration. Images were viewed in brain, subdural and bone [facility]. Automated dose lowering techniques and/or adjustment according to patient size were utilized for this exam. Comparison: None available at the time of this dictation. Findings: Areas of decreased attenuation are present in the periventricular and subcortical white matter bilate rally consistent with small vessel ischemic disease. Generalized cerebral atrophy with commensurate e nlargement of the ventricles, sulci, and cisterns is also present. There is no acute intracranial hem orrhage or evidence of acute territorial infarction. No shift of the midline structures, mass effect, or extra-axial abnormalities are shown. Atherosclerotic calcifications are present in the intracran ial segments of the internal carotid arteries. Encephalomalacia is seen in the left occipital region. No intracranial hemorrhage is seen. Imaged portions of the paranasal sinuses and mastoid air cells are clear. The orbits appear normal. There are no acute fractures of the calvaria. Soft tissue swelling is seen in the posterior right sc alp. Impression: Soft tissue swelling without evidence of acute fracture. No intracranial hemorrhage. ACT 112: Negative or not required by law. Electronically signed by: Osvaldo Sanchez M.D. 08/03/2021 5:01 PM
--- NOTE | 2021-08-03 17:07 | CT Scan Report ---
CT cervical spine wo con CT DOSE: 1025.11 mGy.cm CLINICAL HISTORY: 86 years-old Female with trauma. Acute head and neck injury COMPARISON: Head CT of same day TECHNIQUE: Multiple axial CT images of the cervical spine were obtained without contrast. A dose low ering technique was utilized adhering to the principles of ALARA. FINDINGS: Vertebral straightening of the normal cervical lordosis. Multilevel intervertebral disc spa ce narrowing, severe at C4-C5, C5-C6 and C6 or C7. Advanced spondylitic spurring and facet arthrosis is also noted. Grade 1 anterolisthesis is noted at C3 on C4, C4 on C5 and C7 on T1, likely degenerati ve related. Partially calcified pannus posterior to odontoid process. No acute fracture or subluxatio n. Multilevel neural foraminal narrowing. The mastoid air cells are clear. Mild mucosal thickening of the right maxillary sinus. Several missin g teeth are noted in addition to dental caries and periapical cysts. The cervical soft tissues appear unremarkable. Intralobular septal thickening of the lung apices. No pneumothorax. Calcified plaque of the carotid arteries and thoracic aortic arch. IMPRESSION: No acute cervical spine fracture. ACT 112: Negative or not required by law. The above report was generated using voice recognition software. It may contain grammatical, syntax o r spelling errors. Electronically signed by: Kenrick Shrestha M.D. 08/03/2021 5:04 PM
[2021-08-03 17:59] LABS: Magnesium 1.6 mg/dl (1.7-2.4); Potassium 4.2 mmol/L (3.5-5.1)
[2021-08-03] MEDS ORDERED: MAGNESIUM SULFATE / D5W 1 GM/100 ML BAG IV STA (18:05)
[2021-08-03] MEDS ORDERED: traMADol HCL 50 MG TABLET PO STA (19:02)
[2021-08-03] MEDS ORDERED: amLODIPine BESYLATE 5 MG TAB PO ONE (19:09)
[2021-08-03] MEDS ORDERED: LABETALOL HCL IV 5 MG/ML 20ML IV STA (20:49)
[2021-08-03] MEDS ORDERED: METOPROLOL TARTRATE 50 MG TAB PO STA (22:48)
--- NOTE | 2021-08-03 22:52 | History & Physical Report ---
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 Upon discussion with her, she thinks she may have missed her blood pressure medications today Continue metoprolol succinate 25 mg p.o. twice daily, ramipril 10 mg p.o. every morning, Xarelto 20 mg p.o. daily. Give metoprolol tartrate 50 mg p.o. now Hydralazine 10 mg IV every 4 hours. Systolic blood pressure greater than 160 Part of the issue of elevated blood pressure may be anxiety (3) Atrial fibrillation: Plan: See above (4) Dyslipidemia: Plan: Continue rosuvastatin (5) Type 2 diabetes mellitus, with long-term current use of insulin: Plan: Continue 70/30 50 units subcu in the morning 20 subcu in the evening Hold Metformin Place on Accu-Cheks before meals and at bedtime with NovoLog coverage per scale (6) COPD (chronic obstructive pulmonary disease): Plan: Continue albuterol HFA and Advair (7) Anxiety: Plan: Continue duloxetine History of Present Illness Chief Complaint: The patient presents to the emergency department with a fall that occurred while she was sitting on her rolling walker, where she fell backwards and hit her head. 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 She presents to the emergency department for an assessment of a closed head injury that occurred as she fell backwards while on her rolling walker. She denies any other injuries. She is referred for assessment for admission due to having a persistently elevated blood pressure in the emergency department despite having IV and oral treatment by the emergency department physician. Her main complaint is tenderness on her occipital scalp area from the impact of her fall Allergies Allergy/AdvReac Type Severity Reaction Status Date / Time erythromycin base Allergy Intermediate RASH, Verified 08/03/21 16:26 VOMITING zolpidem [From Ambien] Allergy Unknown Unknown Verified 08/03/21 16:26 atorvastatin AdvReac Intermediate MYALGIA Verified 08/03/21 16:26 rosuvastatin AdvReac Intermediate MYALGIA Verified 08/03/21 16:26 Home Medications Medication Instructions Recorded Confirmed Type acetaminophen 650 mg 1,300 mg PO Q12H 08/22/18 08/03/21 History tablet,extended release (Tylenol Arthritis Pain) albuterol sulfate 90 mcg/actuation 2 puff INHALATION Q6H PRN 08/22/18 08/03/21 History aerosol inhaler (ProAir HFA) loratadine 10 mg capsule 10 mg PO DAILY PRN 08/22/18 08/03/21 History multivitamin 1 tab PO QAM 08/22/18 08/03/21 History polyethylene glycol 3350 17 gram 17 g PO DAILY PRN 08/22/18 08/03/21 History oral powder packet (Miralax) rivaroxaban 20 mg tablet (Xarelto) 20 mg PO DAILY 08/22/18 08/03/21 History Lactobacillus 1 cap PO DAILY cap 03/13/19 08/03/21 History acidophilus-Bifidobac.animalis 31 billion cell capsule bisacodyl 5 mg tablet,delayed 5 mg PO DAILY PRN tab 03/13/19 08/03/21 History release blood-glucose meter (OneTouch #1 ea 03/13/19 08/03/21 History Verio Flex Start) metoprolol succinate 25 mg 25 mg PO BID tab 03/13/19 08/03/21 History tablet,extended release 24 hr lidocaine HCl 2 % mucosal solution 1 appln MUCOUS MEMBRANE TID PRN 11/20/19 08/03/21 Rx (Lidocaine Viscous) #100 ml docusate sodium 100 mg capsule 100 mg PO QAM PRN 12/19/19 08/03/21 History fluticasone 100 mcg-salmeterol 50 1 puffs INHALATION BID PRN ea 12/19/19 08/03/21 History mcg/dose blistr powdr for inhalation (Advair Diskus) ramipril 10 mg capsule 10 mg PO QAM #30 cap 06/18/20 08/03/21 Rx OneTouch Verio test strips (blood #400 ea NS 09/29/20 08/03/21 Rx sugar diagnostic) cholecalciferol (vitamin D3) 50 12,000 unit PO DAILY tab 12/15/20 08/03/21 History mcg (2,000 unit) tablet (Vitamin D3) metformin 500 mg tablet,extended 500 mg PO BID 12/29/20 08/03/21 History release 24 hr Humulin 70/30 U-100 Insulin See Rx Instructions SQ QAM #30 ml 01/05/21 08/03/21 Rx KwikPen 100 unit/mL subcutaneous NS (insulin NPH and regular human) rosuvastatin 40 mg tablet 40 mg PO DAILY #90 tab 04/09/21 08/03/21 Rx Novofine 32 32 gauge x 1/4" needle #200 ea NS 04/27/21 08/03/21 Rx (pen needle, diabetic) tramadol 50 mg tablet 100 mg PO TID PRN #180 tab 06/18/21 08/03/21 Rx oxybutynin 3.9 mg/24 hr semiweekly See Rx Instructions .ROUTE 06/26/21 08/03/21 Rx transdermal patch (Oxytrol) .COMPLEX #8 patch diclofenac sodium 1 % topical gel 4 g TOPICAL QID PRN g 07/10/21 08/03/21 History duloxetine 20 mg capsule,delayed 20 mg PO QAM #30 cap 07/10/21 08/03/21 Rx release estradiol See Rx Instructions VAGINAL 07/10/21 08/03/21 History .COMPLEX PRN g nystatin 100,000 unit/gram topical 1 applic TOP BID PRN #60 g 07/10/21 08/03/21 Rx powder Past Med/Surg History Medical History Asthma RARELY USES PRN INH Chronic kidney disease, stage I Chronic pain syndrome Chronic renal insufficiency COPD exacerbation Insomnia Loss of protective sensation of skin of foot On home oxygen therapy 2 LPM PRN Osteoarthritis Vaginitis Surgical History History of cataract surgery History of colonoscopy with polypectomy History of hysterectomy History of tonsillectomy History of tooth extraction History of total knee replacement RT History of tubal ligation Family History Brother Anxiety Pancreatic cancer Mother Malignant neoplasm of brain Throat cancer Father Malignant neoplasm of urinary bladder Daughter Pancreatic cancer Denies family history of Ovarian cancer Prostate cancer Myocardial infarction Breast cancer Lung cancer Colorectal cancer Social History Smoking Status: Smoker, status unknown Age Started Using Tobacco: 17; Age Quit Using Tobacco: 66; packs per day: 1; Cigarettes Per Day: 1 pack per day; Number of Years Since Quit: 5; Second Hand Exposure: No; Hx Alcohol Use: Yes Alcohol type: wine Alcohol Intake Frequency: Monthly or Less Alcohol Intake Frequency Comment: very rarely Hx Substance Use: No Preferred Language: Chinese Communication Ability: Effective Visual Impairment: Limited Hearing Ability: Use of Hearing Aid Outreach Librarian Required: No Beliefs That Will Affect Care: None marital status: / Current Living Situation: Family Current Living Situation Comment: LIVES W/ SON current occupational status: retired How many Children do You have: 3 Feels Safe at Home: Yes Childhood Exposure to Second-Hand Smoke: No caffeine: Yes (drinks coffee in morning ) Dental Care, Regularly: Yes Physical Activity Frequency: Does not Exercise Seatbelt Use: always Sunscreen Use: Yes Assistive Devices: Denture - Upper, Denture - Lower, Glasses, Hearing Aid - Bilateral and Walker Review of Systems Review of Systems: The patient denies chest pain, palpitations, shortness of breath, dyspnea on exertion, cough, lower extremity swelling, sore throat, fevers, chills, sweats, nausea, vomiting, diarrhea , constipation, abdominal pain, pelvic pain, blood in urine or stool, dysuria, urinary frequency or urgency, lightheadedness, dizziness, memory loss, loss of consciousness, rash, abnormal bruising or bleeding, imbalance, focal or generalized weakness, numbness or tingling in arms or legs, generalized arthralgias or myalgias, back or neck pain, or night sweats. The review of systems is otherwise negative other than for that already noted above, and at least 10 systems have been reviewed. Physical Exam Physical Exam: The patient is awake, alert and oriented 3, well developed and well nourished, tenderness along occiput, otherwise sitting upright in bed and in no acute distress. HEENT--PERRL, EOMI, mucous membranes and oropharynx normal Neck--supple. No JVD. No bruits. Thyroid normal, trachea midline, no adenopathy. Heart--normal S1 and S2. No murmurs, rubs or gallops. Lungs--clear bilaterally, no respiratory distress, no accessory muscle use. Abdomen--normal bowel sounds and soft. Nontender. Nondistended, no hernias or masses, no organomegaly. Extremities--no cyanosis or clubbing. No edema. Dermatologic--normal skin turgor, normal color, no abnormal lymph nodes, no rash. Neurologic--cranial nerves II through XII grossly intact. Rheumatologic--normal range of motion. Psychiatric--normal affect. Results & Data Results & Data ([facility]) Vital Signs (Past 12 Hours) Vital Signs Temp Pulse Pulse Resp BP BP BP 08/03/21 22:01 69 17 203/94 H 08/03/21 20:03 69 15 241/111 H 08/03/21 17:34 62 16 189/91 H 08/03/21 16:41 08/03/21 16:30 64 19 223/120 H 08/03/21 16:16 37 C 72 16 250/135 H 08/03/21 16:13 37 C 71 16 250/135 H Pulse Ox 08/03/21 22:01 96 08/03/21 20:03 98 08/03/21 17:34 94 08/03/21 16:41 90 08/03/21 16:30 89 L 08/03/21 16:16 93 08/03/21 16:13 93 Laboratory Results Laboratory Results WBC 11.33 K/uL (4.8-10.8) H 08/03/21 16:15 RBC 4.46 M/uL (4.2-5.4) 08/03/21 16:15 Hgb 11.1 g/dL (12.0-16.0) L 08/03/21 16:15 Hct 38.4 % (37-47) 08/03/21 16:15 MCV 86.1 fL (80-100) 08/03/21 16:15 MCH 24.9 pg (25-34) L 08/03/21 16:15 MCHC 28.9 g/dL (32-36) L 08/03/21 16:15 RDW Std Deviation 49.1 fL (36.4-46.3) H 08/03/21 16:15 RDW Coeff of Yohannes 15.4 % (11.5-14.5) H 08/03/21 16:15 Plt Count 177 K/uL (130-400) 08/03/21 16:15 MPV 10.9 fL (7.4-10.4) H 08/03/21 16:15 Immature Gran % (Auto) 0.4 % 08/03/21 16:15 Neut % (Auto) 77.6 % 08/03/21 16:15 Lymph % (Auto) 11.7 % 08/03/21 16:15 Greer % (Auto) 7.5 % 08/03/21 16:15 Eos % (Auto) 2.6 % 08/03/21 16:15 Baso % (Auto) 0.2 % 08/03/21 16:15 Neut # (Auto) 8.80 K/uL (1.4-6.5) H 08/03/21 16:15 Lymph # (Auto) 1.32 K/uL (1.2-3.4) 08/03/21 16:15 Greer # (Auto) 0.85 K/uL (0.11-0.59) H 08/03/21 16:15 Eos # (Auto) 0.30 K/uL (0-0.5) 08/03/21 16:15 Baso # (Auto) 0.02 K/uL (0-0.2) 08/03/21 16:15 Immature Gran # (Auto) 0.04 K/uL (0.00-0.02) H 08/03/21 16:15 Polychromasia 1+ 08/03/21 16:15 Hypochromasia Present 08/03/21 16:15 Sodium 138 mmol/L (136-145) 08/03/21 16:15 Potassium 4.2 mmol/L (3.5-5.1) 08/03/21 17:27 Chloride 104 mmol/L (98-107) 08/03/21 16:15 Carbon Dioxide 26 mmol/L (21-32) 08/03/21 16:15 Anion Gap 8 (3-11) 08/03/21 16:15 BUN 27 mg/dl (6-23) H 08/03/21 16:15 Creatinine 0.81 mg/dl (0.6-1.2) 08/03/21 16:15 Est Cr Clr Drug Dosing 47.0 ml/min 08/03/21 16:15 Est GFR ( Amer) 76.8 ml/min 08/03/21 16:15 Est GFR (Non-Af Amer) 66.2 ml/min 08/03/21 16:15 BUN/Creatinine Ratio 33.3 (10-20) H 08/03/21 16:15 Glucose 150 mg/dl (70-99(Fasting)) H 08/03/21 16:15 POC Glucose 161 mg/dl (70-99) H 08/03/21 22:16 Calcium 9.3 mg/dl (8.5-10.1) 08/03/21 16:15 Magnesium 1.6 mg/dl (1.7-2.4) L 08/03/21 17:27 Total Bilirubin 0.3 mg/dl (0.2-1.0) 08/03/21 16:15 AST 22 U/L (13-39) 08/03/21 17:27 ALT 16 U/L (7-52) 08/03/21 16:15 Alkaline Phosphatase 118 U/L (34-104) H 08/03/21 16:15 Total Protein 7.3 gm/dl (6.0-8.3) 08/03/21 16:15 Albumin 3.6 gm/dl (3.4-5.0) 08/03/21 16:15 Globulin 3.7 gm/dl (2.5-4.0) 08/03/21 16:15 Albumin/Globulin Ratio 1.0 (0.9-2) 08/03/21 16:15 SARS-CoV-2, RNA, NAAT NEGATIVE (NEGATIVE) 08/03/21 21:[address] 08/03/21 16:05 CT cervical spine wo con CT DOSE: 1025.11 mGy.cm CLINICAL HISTORY: 86 years-old Female with trauma. Acute head and neck injury COMPARISON: Head CT of same day TECHNIQUE: Multiple axial CT images of the cervical spine were obtained without contrast. A dose lowering technique was utilized adhering to the principles of ALARA. FINDINGS: Vertebral straightening of the normal cervical lordosis. Multilevel intervertebral disc space narrowing, severe at C4-C5, C5-C6 and C6 or C7. Advanced spondylitic spurring and facet arthrosis is also noted. Grade 1 anterolisthesis is noted at C3 on C4, C4 on C5 and C7 on T1, likely degenerative related. Partially calcified pannus posterior to odontoid process. No acute fracture or subluxation. Multilevel neural foraminal narrowing. The mastoid air cells are clear. Mild mucosal thickening of the right maxillary sinus. Several missing teeth are noted in addition to dental caries and periapical cysts. The cervical soft tissues appear unremarkable. Intralobular septal thickening of the lung apices. No pneumothorax. Calcified plaque of the carotid arteries and thoracic aortic arch. IMPRESSION: No acute cervical spine fracture. ACT 112: Negative or not required by law. The above report was generated using voice recognition software. It may contain grammatical, syntax or spelling errors. Electronically signed by: Kenrick Shrestha M.D. 08/03/2021 5:[address] 08/03/21 16:05 CT head/brain wo con CLINICAL HISTORY: trauma Technique: Contiguous axial CT images of the head were acquired from the base of the skull to the vertex without intravenous contrast administration. Images were viewed in brain, subdural and bone windows. Automated dose lowering techniques and/or adjustment according to patient size were utilized for this exam. Comparison: None available at the time of this dictation. Findings: Areas of decreased attenuation are present in the periventricular and subcortical white matter bilaterally consistent with small vessel ischemic disease. Generalized cerebral atrophy with commensurate enlargement of the ventricles, sulci, and cisterns is also present. There is no acute intracranial hemorrhage or evidence of acute territorial infarction. No shift of the midline structures, mass effect, or extra-axial abnormalities are shown. Atherosclerotic calcifications are present in the intracranial segments of the internal carotid arteries. Encephalomalacia is seen in the left occipital region. No intracranial hemorrhage is seen. Imaged portions of the paranasal sinuses and mastoid air cells are clear. The orbits appear normal. There are no acute fractures of the calvaria. Soft tissue swelling is seen in the posterior right scalp. Impression: Soft tissue swelling without evidence of acute fracture. No intracranial hemorrhage. ACT 112: Negative or not required by law. Electronically signed by: Osvaldo Sanchez M.D. 08/03/2021 5:01 PM Chest X-Ray 08/03/21 16:06 XR chest 1V portable CLINICAL HISTORY: trauma TECHNIQUE: Single frontal radiograph of the chest was obtained. Comparison: Comparison is made to chest one view 12/07/2014 FINDINGS: No lines and tubes are seen. Cardiomegaly is noted. The lungs are clear. No evidence of pleural effusion or pneumothorax. IMPRESSION: Cardiomegaly. No acute abnormality. ACT 112: Negative or not required by law. Electronically signed by: Osvaldo Sanchez M.D. 08/03/2021 5:00 PM Code Status & VTE Plan Code Status Full code PG Care Time/CCT Total # of Minutes Spent Total Time Spent with Patient: Total time spent is greater than 50% in coordination of care (as documented) at patient's floor/unit and/or counseling patient: Coding Level of Care Code INT OBSERVATION CARE 70M LVL 3 Diagnoses CHI (closed head injury) S09.90XA Encounter type: initial encounter Elevated blood pressure reading with diagnosis of hypertension I10 COPD (chronic obstructive pulmonary disease) J44.9 Atrial fibrillation I48.91 Anxiety F41.9 Dyslipidemia E78.5 Type 2 diabetes mellitus, with long-term current use of insulin E11.9; Z79.4 (1) CHI (closed head injury) Encounter type: initial encounter Qualified Code(s): S09.90XA - Unspecified injury of head, initial encounter
[2021-08-03] MEDS: MAGNESIUM SULFATE / D5W 1 GM/100 ML BAG IV SCH (23:15)
[2021-08-04] MEDS ORDERED: ACETAMINOPHEN 325 MG TAB ONE (01:32)
[2021-08-04] MEDS: MAGNESIUM SULFATE / D5W 1 GM/100 ML BAG IV SCH (01:34)
[2021-08-04] MEDS ORDERED: GLUCOSE 10 TABS/TUBE PO PRN (01:58)
[2021-08-04] MEDS ORDERED: GLUCAGON FOR INJ 1 MG VIAL SQ PRN (01:58)
[2021-08-04] MEDS ORDERED: NON-FORMULARY MEDICATION (Acetaminophen [Tylenol Arthritis Pain] 650 mg Tablet Extended Re PO SCH (01:58)
[2021-08-04] MEDS ORDERED: DOCUSATE SODIUM 100 MG CAP PO PRN (01:58)
[2021-08-04] MEDS ORDERED: ONDANSETRON INJ 2 MG/ML 2 ML VIAL IV PRN (01:58)
[2021-08-04] MEDS ORDERED: GLUCOSE 40% GEL 15 GM TUBE PO PRN (01:58)
[2021-08-04] MEDS ORDERED: CARBOHYDRATES FOR HYPOGLYCEMIA PO PRN (01:58)
[2021-08-04] MEDS ORDERED: bisacodyL 5 MG TABEC PO PRN (01:58)
[2021-08-04] MEDS ORDERED: DEXTROSE 50% 50 ML SYRINGE IV PRN (01:58)
[2021-08-04] MEDS ORDERED: POLYETHYLENE (MIRALAX) 17 GM PACK PO PRN (01:58)
[2021-08-04] MEDS ORDERED: LORATADINE 10 MG TAB PO PRN (01:58)
[2021-08-04] MEDS: ACETAMINOPHEN 325 MG TAB PO PRN ×3 (02:13→17:02)
[2021-08-04] MEDS: traMADol HCL 50 MG TABLET PO PRN ×3 (02:55→19:59)
[2021-08-04] MEDS: hydrALAZINE HCL 20 MG/ML VIAL IV PRN ×2 (03:50→23:01)
[2021-08-04] MEDS ORDERED: FLUTICASONE/VILANTEROL 100/25MCG 14 PUFFS/INHALER INH PRN (04:34)
[2021-08-04] MEDS: METOPROLOL SUCC 25MG EXT REL TAB PO SCH ×3 (04:36→23:55)
[2021-08-04] MEDS ORDERED: ALBUTEROL HFA 8 GM INHALER INH PRN (04:38)
[2021-08-04 08:30] LABS: Basophils # (auto) 0.03 K/uL (0-0.2); Basophils % (auto) 0.2 %; Eosinophils # (auto) 0.18 K/uL (0-0.5); Eosinophils % (auto) 1.3 %; Hematocrit (blood only) 40.9 % (37-47); Hemoglobin 12.1 g/dL (12.0-16.0); Immature Granulocytes # (auto) 0.04 K/uL (0.00-0.02); Immature Granulocytes % (auto) 0.3 %; Lymphocytes % (auto) 7.1 %; Mean Corpuscular Hemoglobin 25.5 pg (25-34); Mean Corpuscular Hgb Conc 29.6 g/dL (32-36); Mean Corpuscular Volume 86.1 fL (80-100); Mean Platelet Volume 11.1 fL (7.4-10.4); Monocytes # (auto) 0.96 K/uL (0.11-0.59); Monocytes % (auto) 6.8 %; Neutrophils # (auto) 11.88 K/uL (1.4-6.5); Neutrophils % (auto) 84.3 %; Platelet Count 193 K/uL (130-400); RDW Coefficient of Variation 15.6 % (11.5-14.5); RDW Standard Deviation 49.7 fL (36.4-46.3); Red Blood Count 4.75 M/uL (4.2-5.4); White Blood Count 14.09 K/uL (4.8-10.8)
[2021-08-04 08:52] LABS: Estimated Average Glucose 160 mg/dl; Hemoglobin A1C 7.2 % (4.5-5.6)
[2021-08-04 08:53] LABS: Albumin Level 3.5 gm/dl (3.4-5.0); BUN Creatinine Ratio 31.7 (10-20); Calcium 9.1 mg/dl (8.5-10.1); Creatinine Clr Calc Pharmacy 60.4 ml/min; Est GFR (African American) 94.8 ml/min; Est GFR (Non-African American) 81.8 ml/min; Potassium 4.2 mmol/L (3.5-5.1)
[2021-08-04] MEDS: CHOLECALCIFEROL 5,000 UNITS 125 MCG TAB PO SCH (10:16)
[2021-08-04] MEDS: DULoxetine HCL 20 MG CAP PO SCH (10:18)
[2021-08-04] MEDS: ENALAPRIL MALEATE 10 MG TAB PO SCH (10:19)
[2021-08-04] MEDS: ADVANCED PROBIOTIC 1250 MG CAPSULE PO SCH (10:21)
[2021-08-04] MEDS: MULTIVITAMIN TAB PO SCH (10:22)
[2021-08-04] MEDS: ROSUVASTATIN CALCIUM 20 MG TAB PO SCH (10:23)
[2021-08-04] MEDS: SODIUM CHLORIDE 0.9% 1000ML 1,000 ML IV SCH ×3 (10:26→23:40)
[2021-08-04] MEDS: INSULIN HUMAN 70% NPH/30% REGULAR SQ SCH (10:28)
[2021-08-04] MEDS: INSULIN ASPART PER UNIT SC SCH ×4 (10:32→23:36)
--- NOTE | 2021-08-04 11:42 | Electrocardiogram Report ---
Test Reason : Blood Pressure : / mmHG Vent. 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
--- NOTE | 2021-08-04 13:20 | Hospitalist Progress Note ---
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 Denies nausea so cerebral concussion is unlikely (2) Elevated blood pressure reading with diagnosis of hypertension: Plan: Elevated blood pressure with diagnosis of hypertension/atrial fibr illation/hypertension- Patient has persistently elevated blood pressure on admission in spite of re ceiving from the ED amlodipine 5 mg, labetalol 10 mg IV, fentanyl 50 mcg IV. Upon discussion with her, she thinks she may have missed her blood pressure medications today Continue metoprolol succinate 25 mg p.o. twice daily, ramipril 10 mg p.o. every morning, Xarelto 20 mg p.o. daily. Received metoprolol tartrate 50 mg p.o. in ED Hydralazine 10 mg IV every 4 hours. Systolic blood pressure greater than 160 Part of the issue of elevated blood pressure may be anxiety related (3) Atrial fibrillation: Plan: Chronic. Rate controlled with medication. Continue Xarelto therapy (4) Dyslipidemia: Plan: Continue rosuvastatin (5) Type 2 diabetes mellitus, with long-term current use of insulin: Plan: Continue 70/30 50 units subcu in the morning 20 subcu in the evening Hold Metformin Place on Accu-Cheks before meals and at bedtime with NovoLog coverage per scale. ADA diet (6) COPD (chronic obstructive pulmonary disease): Plan: Continue albuterol HFA and Advair. Currently stable (7) Anxiety: Plan: Continue duloxetine Plan: Anticipate discharge to home tomorrow, August 05, if stable Admission and Anticipated Discharge Date Admission Date: August 03, 2021 Subjective Alert and oriented. IV fluid rate down titrated. Will obtain OT and PT assessments. Hopefully if she remains stable, she will be able to be discharged Review of Systems Review of Systems: Constitutional-no fever or chills ENT-no blurred vision, no double vision, no epistaxis, no sore throat Respiratory-no cough, no wheezing, no shortness of breath Cardiac-no palpitations, no chest pain, no syncope GI-no nausea, vomiting, diarrhea, melena, hematochezia -no urinary retention, no urinary incontinence, no dysuria, no hematuria Musculoskeletal-no joint pain, no muscle tenderness Skin-no bruising, no rashes, no pruritus Neuro-no isolated weakness, no paresthesia, no weakness Psych-no depression, no anxiety Physical Exam Physical Exam: General-alert and oriented x3, no fevers, no chills HEENT-head atraumatic and normocephalic, TMs intact bilaterally, pupils equal and reactive to light, extraocular muscles intact Neck-no lymphadenopathy or thyromegaly, trachea midline Chest-clear to auscultation percussion. No rales wheezing or rhonchi Cardiac-regular rate and rhythm, normal S1 and S2, no murmurs Abdomen-normal bowel sounds, nontender, no hepatosplenomegaly Extremities-no cyanosis, clubbing, or edema Neuro-cranial nerves II through XII intact, motor and sensory function within normal limits, strength symmetrical , no focal deficits Psych-normal affect, normal mood Results & Data Results & Data ([facility]) Vital Signs (Past 12 Hours) Vital Signs Pulse Pulse Resp BP BP Pulse Ox 08/04/21 12:38 79 18 151/112 H 96 08/04/21 07:00 65 21 139/65 94 08/04/21 06:46 63 19 125/60 08/04/21 06:30 69 18 171/93 H 08/04/21 06:03 169/99 H 08/04/21 06:00 75 21 169/99 H 91 08/04/21 05:45 75 20 181/82 H 100 08/04/21 05:43 76 23 200/78 H 97 08/04/21 05:30 76 25 H 181/82 H 100 08/04/21 05:15 66 30 H 171/128 H 100 08/04/21 05:00 68 29 H 100 08/04/21 04:45 74 31 H 188/83 H 98 08/04/21 04:31 78 32 H 195/114 H 97 08/04/21 04:30 79 22 98 08/04/21 04:00 64 20 170/72 H 100 08/04/21 03:45 79 27 H 230/81 H 98 08/04/21 03:30 72 22 08/04/21 03:04 191/88 H 95 08/04/21 03:01 73 98 08/04/21 03:00 73 98 08/04/21 02:30 63 19 99 02/15/22 02:16 66 23 190/89 H 97 08/04/21 02:00 69 17 08/04/21 01:30 70 19 94 Laboratory Results 08/04/21 07:47 08/04/21 07:47 PG Care Time/CCT Total # of Minutes Spent Total Time Spent with Patient: Total time spent is greater than 50% in coordination of care (as documented) at patient's floor/unit and/or counseling patient: Coding Level of Care Code 47764 Subseq Hosp Care Lvl 3 Diagnoses CHI (closed head injury) S09.90XA Encounter type: initial encounter Elevated blood pressure reading with diagnosis of hypertension I10 Atrial fibrillation I48.91 Dyslipidemia E78.5 Type 2 diabetes mellitus, with long-term current use of insulin E11.9; Z79.4 COPD (chronic obstructive pulmonary disease) J44.9 Anxiety F41.9 (1) CHI (closed head injury) Encounter type: initial encounter Qualified Code(s): S09.90XA - Unspecified injury of head, initial encounter
[2021-08-04] MEDS ORDERED: RIVAROXABAN 20 MG TAB PO SCH (16:30)
[2021-08-05] MEDS: hydrALAZINE HCL 20 MG/ML VIAL IV PRN (05:17)
[2021-08-05] MEDS: ACETAMINOPHEN 325 MG TAB PO PRN (05:22)
[2021-08-05 06:59] LABS: Albumin Level 3.2 gm/dl (3.4-5.0); BUN Creatinine Ratio 39.3 (10-20); Calcium 8.3 mg/dl (8.5-10.1); Creatinine Clr Calc Pharmacy 68.4 ml/min; Est GFR (African American) 98.5 ml/min; Magnesium 1.8 mg/dl (1.7-2.4); Phosphorus 2.8 mg/dl (2.5-4.9); Potassium 3.9 mmol/L (3.5-5.1)
[2021-08-05 07:06] LABS: Hematocrit (blood only) 40.1 % (37-47); Hemoglobin 11.5 g/dL (12.0-16.0); Mean Corpuscular Hemoglobin 25.1 pg (25-34); Mean Corpuscular Hgb Conc 28.7 g/dL (32-36); Mean Corpuscular Volume 87.4 fL (80-100); Mean Platelet Volume 10.7 fL (7.4-10.4); Platelet Count 162 K/uL (130-400); RDW Standard Deviation 51.4 fL (36.4-46.3); Red Blood Count 4.59 M/uL (4.2-5.4); White Blood Count 11.22 K/uL (4.8-10.8)
[2021-08-05 07:39] LABS: Basophils # (auto) 0.01 K/uL (0-0.2); Basophils % (auto) 0.1 %; Eosinophils # (auto) 0.21 K/uL (0-0.5); Eosinophils % (auto) 1.9 %; Immature Granulocytes # (auto) 0.02 K/uL (0.00-0.02); Immature Granulocytes % (auto) 0.2 %; Lymphocytes # (auto) 1.01 K/uL (1.2-3.4); Monocytes % (auto) 13.4 %; Neutrophils # (auto) 8.47 K/uL (1.4-6.5); Neutrophils % (auto) 75.4 %; Polychromasia 1+
[2021-08-05] MEDS: INSULIN ASPART PER UNIT SC SCH ×2 (08:15→11:56)
[2021-08-05] MEDS: METOPROLOL SUCC 25MG EXT REL TAB PO SCH (09:27)
[2021-08-05] MEDS: traMADol HCL 50 MG TABLET PO PRN (09:27)
[2021-08-05] MEDS: ADVANCED PROBIOTIC 1250 MG CAPSULE PO SCH (09:28)
[2021-08-05] MEDS: CHOLECALCIFEROL 5,000 UNITS 125 MCG TAB PO SCH (09:28)
[2021-08-05] MEDS: MULTIVITAMIN TAB PO SCH (09:28)
[2021-08-05] MEDS: ROSUVASTATIN CALCIUM 20 MG TAB PO SCH (09:28)
[2021-08-05] MEDS: ENALAPRIL MALEATE 10 MG TAB PO SCH (09:28)
[2021-08-05] MEDS: DULoxetine HCL 20 MG CAP PO SCH (09:29)
[2021-08-05] MEDS: INSULIN HUMAN 70% NPH/30% REGULAR SQ SCH (09:30)
--- NOTE | 2021-08-05 11:00 | Discharge Summary ---
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 She presents to the emergency department for an assessment of a closed head injury that occurred as she fell backwards while on her rolling walker. She denies any other injuries. She is referred for assessment for admission due to having a persistently el evated blood pressure in the emergency department despite having IV and oral treatment by the emergency department physician. Her main complaint is tenderness on her occipital scalp area from the impact of her fall Principal Diagnosis fall with closed head injury on Xarelto Discharge Exam Constitutional WD/WN, vitals as above Neck trachea midline, no thyromegaly Respiratory normal respiratory effort, lungs clear to auscultation Cardiovascular RRR, no murmur, no edema Gastrointestinal (Abdomen) normal bowel sounds, soft, nontender, no hepatosplenomegaly Musculoskeletal no cyanosis or clubbing, extremities motor strength 5/5 Skin bruised scalp area, upper occipatal area Neurologic PERRL, EOMI, accommodation nl, no face palsy, no dysarthria Psychiatric A+Ox3, euthymic affect Discharge Data Allergies Allergy/AdvReac Type Severity Reaction Status Date / Time erythromycin base Allergy Intermediate RASH, Verified 08/03/21 16:26 VOMITING zolpidem [From Ambien] Allergy Unknown Unknown Verified 08/03/21 16:26 atorvastatin AdvReac Intermediate MYALGIA Verified 08/03/21 16:26 rosuvastatin AdvReac Intermediate MYALGIA Verified 08/03/21 16:26 Consultations 08/03/21 22:18 ED Decision to Admit Stat Ordered Studies 08/03/21 16:05 CT cervical spine wo con Stat CT head/brain wo con Stat Hospital Course (1) CHI (closed head injury): CT of head negative for acute injury 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 Denies nausea so cerebral concussion is unlikely (2) Elevated blood pressure reading with diagnosis of hypertension: Elevated blood pressure on admission. Now resolved. med management. (3) Atrial fibrillation: Chronic. Rate controlled with medication. Continue Xarelto therapy (4) Dyslipidemia: Continue rosuvastatin (5) Type 2 diabetes mellitus, with long-term current use of insulin: Continue 70/30 50 units subcu in the morning 20 subcu in the evening Hold Metformin while hospitalized. Restart at discharge. Sliding scale coverage. ADA diet (6) COPD (chronic obstructive pulmonary disease): Continue albuterol HFA and Advair. Currently stable (7) Anxiety: Continue duloxetine Discharge to home today, August 05 Total Time Total Time Spent Total Time Spent (In Minutes): 35 minutes Discharge Plan Discharge Items Patient Disposition: Home - Self-Care Reason For Visit: uncontrolled htn Discharge Diagnosis: Fall with closed head injury on Xarelto Condition on Discharge: Good Non-emergency contact: Primary Care Provider Call non-emergency contact if: you have any medication questions and your symptoms worsen Follow-up/Referrals: Roderick Nation MD [Primary Care Provider] - Diet: Carb Consistent or DM2 and Heart Healthy Addtl Attending Provider Instructions: all medications remain the same Pending Studies at Discharge: No Stand-Alone Forms: My Insticator, Smoking Cessation Medications and DC Order Prescriptions: Continued ramipril 10 mg capsule 10 mg PO QAM Qty: 30 RF: 0 (DME) OneTouch Verio test strips Strip See Dose Instructions .ROUTE .MEDSUPPLY Qty: 400 RF: 3 cholecalciferol (vitamin D3) [Vitamin D3] 50 mcg (2,000 unit) tablet 12,000 unit PO DAILY RF: 0 Humulin 70/30 U-100 KwikPen 100 unit/mL (70-30) insulin pen See Rx Instructions SQ QAM Qty: 30 RF: 5 rosuvastatin 40 mg tablet 40 mg PO DAILY Qty: 90 RF: 3 (DME) pen needle, diabetic [Novofine 32] 32 gauge x 1/4" needle See Dose Instructions .ROUTE .MEDSUPPLY Qty: 200 RF: 5 tramadol 50 mg tablet 100 mg PO TID PRN (Reason: pain) Qty: 180 RF: 1 Oxytrol 3.9 mg/24 hr patch semiweekly See Rx Instructions .ROUTE .COMPLEX Qty: 8 RF: 2 (DME) blood-glucose meter [OneTouch Verio Flex Start] kit See Dose Instructions .ROUTE .MEDSUPPLY Qty: 1 RF: 0 metoprolol succinate 25 mg tablet extended release 24 hr 25 mg PO BID RF: 0 Lacto.acidophilus-Bif.animalis 31 billion cell capsule 1 cap PO DAILY RF: 0 bisacodyl 5 mg tablet,delayed release (DR/EC) 5 mg PO DAILY PRN (Reason: constipation) RF: 0 Lidocaine Viscous 2 % solution 1 appln mucous membrane TID PRN (Reason: pain) Qty: 100 RF: 0 diclofenac sodium 1 % gel 4 g topical QID PRN (Reason: Pain) RF: 0 estradiol 0.01 % (0.1 mg/gram) cream See Rx Instructions vaginal .COMPLEX PRN (Reason: Itching) RF: 0 nystatin 100,000 unit/gram powder 1 applic TOP BID PRN (Reason: rash) Qty: 60 RF: 2 duloxetine 20 mg capsule,delayed release(DR/EC) 20 mg PO QAM Qty: 30 RF: 2 multivitamin Tablet 1 tab PO QAM RF: 0 polyethylene glycol 3350 [Miralax] 17 gram Powder In Packet 17 g PO DAILY PRN (Reason: Constipation) RF: 0 acetaminophen [Tylenol Arthritis Pain] 650 mg Tablet Extended Release 1,300 mg PO Q12H RF: 0 albuterol sulfate [ProAir HFA] 90 mcg/actuation Hfa Aerosol Inhaler 2 puff INHALATION Q6H PRN (Reason: Shortness Of Breath) RF: 0 loratadine 10 mg Capsule 10 mg PO DAILY PRN (Reason: Allergy Symptoms) RF: 0 Xarelto 20 mg Tablet 20 mg PO DAILY RF: 0 docusate sodium 100 mg capsule 100 mg PO QAM PRN (Reason: Constipation) RF: 0 fluticasone propion-salmeterol [Advair Diskus] 100-50 mcg/dose blister with device 1 puffs INHALATION BID PRN (Reason: Shortness Of Breath) RF: 0 metformin 500 mg tablet extended release 24 hr 500 mg PO BID RF: 0 Discharge Orders: Discharge Order (Routine); Ordered 08/05/21 Ordered By: Pipe Martinez/Other Patient Handouts: Managing Type 2 Diabetes Admission Data Admit Date/Time: 08/03/21 23:10 Attending Provider: Pipe Lazar Admit Provider: Scar Oswald Primary Care Provider: Roderick Nation Providers: Scar Oswald ; [facility] Coding Level of Care Code D/C DAY MANAGEMENT >30 MINS Diagnoses CHI (closed head injury) S09.90XA Encounter type: initial encounter Elevated blood pressure reading with diagnosis of hypertension I10 Atrial fibrillation I48.91 Dyslipidemia E78.5 Type 2 diabetes mellitus, with long-term current use of insulin E11.9; Z79.4 COPD (chronic obstructive pulmonary disease) J44.9 Anxiety F41.9
== END 2021-08-05 14:49 | disposition home health service (06) ==
LOC: EDINP 15:41 → ED 15:41 → SUATTDRO 23:10 → 2W 08-04 18:44
DX: I48.91 Unspecified atrial fibrillation; Z79.899 Other long term (current) drug therapy; Y99.9 Unspecified external cause status; E11.22 Type 2 diabetes mellitus with diabetic chronic kidney disease; Z99.81 Dependence on supplemental oxygen; G47.30 Sleep apnea, unspecified; E78.5 Hyperlipidemia, unspecified; F17.210 Nicotine dependence, cigarettes, uncomplicated; M19.90 Unspecified osteoarthritis, unspecified site; Z79.51 Long term (current) use of inhaled steroids; I12.9 Hypertensive chronic kidney disease with stage 1 through stage 4 chronic kidney disease, or unspecified chronic kidney disease; Z79.4 Long term (current) use of insulin; Z88.8 Allergy status to other drugs, medicaments and biological substances; S09.90XA Unspecified injury of head, initial encounter; F41.9 Anxiety disorder, unspecified; N18.9 Chronic kidney disease, unspecified; J44.9 Chronic obstructive pulmonary disease, unspecified; Z20.822 Contact with and (suspected) exposure to COVID-19

== ENCOUNTER 2021-12-19 10:05 | Inpatient (IN) ==
--- NOTE | 2021-12-19 10:39 | XRay Report ---
XR chest 1V portable CLINICAL HISTORY: SOB TECHNIQUE: Single frontal radiograph of the chest was obtained. Comparison: Comparison is made to chest radiograph 11/11/2021 FINDINGS: No lines and tubes are seen. Cardiomegaly is noted. Lungs are underinflated but clear. No evidence of pleural effusion or pneumothorax. IMPRESSION: Cardiomegaly with mild pulmonary edema. ACT 112: Negative or not required by law. Electronically signed by: Osvaldo Sanchez M.D. 12/19/2021 10:38 AM
--- NOTE | 2021-12-19 11:25 | Emergency Department Note ---
Impression & Plan Acute exacerbation of chronic obstructive pulmonary disease, Pulmonary edema, Acute alteration in mental status Admit to the [facility] service ED Provider Note NAME: ALEXI BARKLEY AGE: 86 SEX: F ARRIVES VIA: Ambulance INFORMANT: Patient ED PROVIDER(S): Jyoti Anne DO CHIEF COMPLAINT: Shortness of breath PLAN: Disposition: Admit to the [facility] Condition: Guarded MEDICAL DECISION MAKING: This is an 86-year-old female patient who presents to the emergency department with increasing shortness of breath and confusion. Patient has a history of COPD and was recently placed back on supplemental oxygen just 4 days ago. Upon EMS arrival today, O2 saturations were 79% and blood pressure was 224/85. The patient lives with her 2 sons. Chest x-ray showed evidence of pulmonary edema. However, she was given a DuoNeb treatment and Solu-Medrol which gave her significant relief of her respiratory distress and wheezing. The patient had an elevated BUN/creatinine and an elevated troponin. Patient will be admitted to the [facility] service. Triage Nursing notes reviewed and agree with them. Prior medical records reviewed Vital Signs: reviewed and remarkable for hypertension Differential diagnosis: Pneumonia, CHF ER treatment provided: IV Lasix IV Solu-Medrol DuoNeb treatment Diagnostics interpreted by me: ECG: Normal sinus rhythm at 65. There is no ST segment elevation or signs of ischemia. There is no ectopy. Cardiac Monitoring: Sinus rhythm at 62 Laboratory studies: See below Imaging studies: As per radiology Portable chest x-ray: Mild pulmonary edema HPI: 86/F arrives for evaluation of shortness of breath. The patient comp lained of increasing shortness of breath. I was able to obtain significant increased history from the patient's son who arrived at the bedside. He noted that the patient has increasing confusion and slurred speech with the shortness of breath since last night. He describes variations in blood sugar from 24-270. He explains that his mother was just placed back on home oxygen 4 days ago after not being on it for the past year. He describes that she has a history of COPD but does not use nebulizers at home. He was most concerned this morning when she was bagging him to help her breathe. ROS: See above HPI for pertinent positives & negatives. A total of 10 systems reviewed and were otherwise negative. PAST MEDICAL HISTORY:See Below PAST SURGICAL HISTORY:See Below FAMILY HISTORY:See Below SOCIAL HISTORY:See Below HOME MEDICATIONS: See list ALLERGIES:See list VITALS:See Below PHYSICAL EXAMINATION: HEENT: Head - normocephalic and atraumatic. Pupils are equal, round, and reactive to light. Extraocular eye muscles are intact, and sclera are anict felice. Nose - moist nasal mucosa without discharge. Mouth - moist buccal mucosa. Oropharynx is nonerythematous and there is no tonsillar exudate or edema noted. Neck: Supple; no JVD, nuchal rigidity, cervical lymphadenopathy. Heart: Regular rate and rhythm. There is a normal S1 and S2 with no murmurs, clicks, or gallops appreciated. Lungs: Diffuse rales, rhonchi and wheezes. Abdomen: Soft, completely nontender, nondistended, with good bowel sounds. There are no palpable pulsatile masses or hepatosplenomegaly. There is no guarding, rigidity, or rebound noted. Extremities: No evidence of cyanosis, clubbing, or edema. There are easily palpable peripheral pulses. Skin: warm and dry with good turgor and no rashes. ED COURSE: Times/Reassessments: 1110 patient was evaluated in room C6. A complete history and physical was performed. A twelve-lead EKG was obtained. An order was placed for continuous cardiac monitoring. She was in a normal sinus rhythm at a rate of 62. Portable chest x-ray was performed and showed evidence of pulmonary edema. O2 saturations remained stable. The patient continued to exhibit signs of confusion. She went for CT scan of her brain. Upon returning from radiology, she was given a dose of IV Lasix. Patient continued to have audible wheezes and was given a DuoNeb treatment and IV Solu-Medrol. Discussed the case with Dr. Grant [facility] and they will evaluate for further management. Jyoti Anne, Past Med/Surg History Medical History Asthma Chronic kidney disease, stage I Chronic pain syndrome Chronic renal insufficiency COPD exacerbation Insomnia Loss of protective sensation of skin of foot On home oxygen therapy Osteoarthritis Vaginitis Surgical History History of cataract surgery History of colonoscopy with polypectomy History of hysterectomy History of tonsillectomy History of tooth extraction History of total knee replacement History of tubal ligation Family History Brother Anxiety Pancreatic cancer Mother Malignant neoplasm of brain Throat cancer Father Malignant neoplasm of urinary bladder Daughter Pancreatic cancer Denies family history of Ovarian cancer Prostate cancer Myocardial infarction Breast cancer Lung cancer Colorectal cancer Social History Smoking Status: Never smoker Tobacco Type: Cigarettes Age Started Using Tobacco: 17; Age Quit Using Tobacco: 66; packs per day: 1; Cigarettes Per Day: 1 pack per day; Number of Years Since Quit: 5; Second Hand Exposure: No; Hx Alcohol Use: No Hx Substance Use: No Preferred Language: [place] Communication Ability: Impaired Visual Impairment: Limited Hearing Ability: Use of Hearing Aid 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 Beliefs That Will Affect Care: None marital status: / Current Living Situation: Family Current Living Situation Comment: home with 2 sons current occupational status: retired How many Children do You have: 3 Other Information That Helps Us Care for You: No Feels Safe at Home: Yes Childhood Exposure to Second-Hand Smoke: No caffeine: Yes (drinks coffee in morning ) Dental Care, Regularly: Yes Physical Activity Frequency: Does not Exercise Seatbelt Use: always Sunscreen Use: Yes Assistive Devices: Walker Allergies Allergies Allergy/AdvReac Type Severity Reaction Status Date / Time erythromycin base Allergy Intermediate RASH, Verified 12/19/21 16:33 VOMITING zolpidem [From Ambien] Allergy Unknown Unknown Verified 12/19/21 16:33 atorvastatin AdvReac Intermediate MYALGIA Verified 12/19/21 16:33 rosuvastatin AdvReac Intermediate MYALGIA Verified 12/19/21 16:33 Home Meds Home Medications Medication Instructions Recorded Confirmed acetaminophen 650 mg 1,300 mg PO Q12H 08/22/18 12/19/21 tablet,extended release (Tylenol Arthritis Pain) loratadine 10 mg capsule 10 mg PO DAILY PRN 08/22/18 12/19/21 multivitamin 1 tab PO QAM 08/22/18 12/19/21 polyethylene glycol 3350 17 gram 17 g PO DAILY PRN 08/22/18 12/19/21 oral powder packet (Miralax) rivaroxaban 20 mg tablet (Xarelto) 20 mg PO QPM 08/22/18 12/19/21 Lactobacillus 1 cap PO DAILY cap 03/13/19 12/19/21 acidophilus-Bifidobac.animalis 31 billion cell capsule bisacodyl 5 mg tablet,delayed 5 mg PO DAILY PRN tab 03/13/19 12/19/21 release blood-glucose meter (OneTouch #1 ea 03/13/19 12/08/21 Verio Flex Start) docusate sodium 100 mg capsule 100 mg PO QAM 12/19/19 12/19/21 cholecalciferol (vitamin D3) 50 4,000 unit PO DAILY tab 12/15/20 12/19/21 mcg (2,000 unit) tablet (Vitamin D3) diclofenac sodium 1 % topical gel 4 g TOPICAL QID PRN g 07/10/21 12/19/21 estradiol See Rx Instructions VAGINAL 07/10/21 12/19/21 .COMPLEX PRN g magnesium oxide 400 mg PO DAILY 10/08/21 12/19/21 rosuvastatin 40 mg tablet 40 mg PO QAM 12/19/21 12/19/21 Previous Rx's Medication Instructions Recorded OneTouch Verio test strips (blood #400 ea NS 09/29/20 sugar diagnostic) Novofine 32 32 gauge x 1/4" needle #200 ea NS 04/27/21 (pen needle, diabetic) nystatin 100,000 unit/gram topical 1 applic TOP BID PRN #60 g 07/10/21 powder duloxetine 20 mg capsule,delayed 20 mg PO QAM #30 cap 10/05/21 release Humulin 70/30 U-100 Insulin See Rx Instructions SQ QAM #30 ml 10/14/21 KwikPen 100 unit/mL subcutaneous NS (insulin NPH and regular human) tramadol 50 mg tablet 100 mg PO TID PRN #180 tab 10/19/21 metformin 500 mg tablet,extended 500 mg PO BID #180 tab 10/22/21 release 24 hr metoprolol succinate 25 mg 25 mg PO BID #90 tab 10/22/21 tablet,extended release 24 hr furosemide 20 mg tablet 20 mg PO DAILY #90 tab 11/18/21 oxybutynin 3.9 mg/24 hr semiweekly See Rx Instructions .ROUTE 12/07/21 transdermal patch (Oxytrol) .COMPLEX #8 patch telmisartan 40 mg tablet 40 mg PO DAILY #30 tab 12/14/21 Oxygen Home #1 ea 12/15/21 Results & Data (ED) Vital Signs Vital Signs - 24 hr 12/19/21 10:04 12/19/21 10:24 12/19/21 10:30 Temperature 36.9 C Temperature Source Oral Pulse Rate 65 80 Pulse Rate from SpO2 Sensor 79 Respiratory Rate 14 27 H Respiratory Effort / Characteristics Non-Labored Spontaneous Respiratory Depth Normal Blood Pressure 194/90 H 222/85 H Blood Pressure Mean 124 130 Pulse Oximetry 79 L 96 Oxygen Delivery Method Room Air Sepsis Recent Fever Within 48 Hours No Sepsis New/Unexplained Change in Mental Status Yes Sepsis Action Taken by Nursing No Action Required Oxygen Flow Rate - Titration 3 Pulse Oximetry Post Tiitration 96 12/19/21 10:40 12/19/21 11:31 12/19/21 12:01 Temperature Temperature Source Pulse Rate 63 64 Pulse Rate from SpO2 Sensor 68 64 Respiratory Rate 20 17 Respiratory Effort / Characteristics Respiratory Depth Blood Pressure 221/91 H 210/87 H Blood Pressure Mean 134 128 Pulse Oximetry 97 100 Oxygen Delivery Method Sepsis Recent Fever Within 48 Hours Sepsis New/Unexplained Change in Mental Status Sepsis Action Taken by Nursing Oxygen Flow Rate - Titration Pulse Oximetry Post Tiitration 12/19/21 12:55 12/19/21 13:00 12/19/21 13:58 Temperature Temperature Source Pulse Rate 68 65 65 Pulse Rate from SpO2 Sensor 68 65 65 Respiratory Rate 21 18 22 Respiratory Effort / Characteristics Respiratory Depth Blood Pressure 196/158 H 208/86 H 185/73 H Blood Pressure Mean 170 126 110 Pulse Oximetry 98 100 100 Oxygen Delivery Method Sepsis Recent Fever Within 48 Hours Sepsis New/Unexplained Change in Mental Status Sepsis Action Taken by Nursing Oxygen Flow Rate - Titration Pulse Oximetry Post Tiitration 12/19/21 14:31 12/19/21 15:00 12/19/21 15:30 Temperature Temperature Source Pulse Rate 61 62 60 Pulse Rate from SpO2 Sensor 61 60 60 Respiratory Rate 22 16 17 Respiratory Effort / Characteristics Respiratory Depth Blood Pressure 153/58 H 140/82 149/56 H Blood Pressure Mean 89 101 87 Pulse Oximetry 94 91 94 Oxygen Delivery Method Sepsis Recent Fever Within 48 Hours Sepsis New/Unexplained Change in Mental Status Sepsis Action Taken by Nursing Oxygen Flow Rate - Titration Pulse Oximetry Post Tiitration 12/19/21 16:00 Temperature Temperature Source Pulse Rate 62 Pulse Rate from SpO2 Sensor 62 Respiratory Rate 18 Respiratory Effort / Characteristics Respiratory Depth Blood Pressure 149/77 H Blood Pressure Mean 101 Pulse Oximetry 94 Oxygen Delivery Method Sepsis Recent Fever Within 48 Hours Sepsis New/Unexplained Change in Mental Status Sepsis Action Taken by Nursing Oxygen Flow Rate - Titration Pulse Oximetry Post Tiitration Laboratory Data Result diagrams: 12/19/21 10:25 12/19/21 10:25 Lab Results 12/19/21 12/19/21 12/19/21 Range/Units 10:25 10:25 10:25 WBC 8.80 (4.8-10.8) K/uL RBC 4.63 (4.2-5.4) M/uL Hgb 8.5 L (12.0-16.0) g/dL Hct 32.6 L (37-47) % MCV 70.4 L (80-100) fL MCH 18.4 L (25-34) pg MCHC 26.1 L (32-36) g/dL RDW Std Deviation 50.7 H (36.4-46.3) fL RDW Coeff of Yohannes 20.1 H (11.5-14.5) % Plt Count 176 (130-400) K/uL Immature Gran % (Auto) 0.2 % Neut % (Auto) 78.7 % Lymph % (Auto) 10.1 % [place] % (Auto) 8.1 % Eos % (Auto) 2.4 % Baso % (Auto) 0.5 % Neut # (Auto) 6.93 H (1.4-6.5) K/uL Lymph # (Auto) 0.89 L (1.2-3.4) K/uL [place] # (Auto) 0.71 H (0.11-0.59) K/uL Eos # (Auto) 0.21 (0-0.5) K/uL Baso # (Auto) 0.04 (0-0.2) K/uL Immature Gran # (Auto) 0.02 (0.00-0.02) K/uL Polychromasia 1+ Anisocytosis Present Microcytosis Present Sodium 138 (136-145) mmol/L Potassium 4.3 (3.5-5.1) mmol/L Chloride 102 (98-107) mmol/L Carbon Dioxide 30 (21-32) mmol/L Anion Gap 6 (3-11) BUN 42 H (6-23) mg/dl Creatinine 1.22 H (0.6-1.2) mg/dl Est Cr Clr Drug Dosing Not Reportable Est GFR ( Amer) 46.8 ml/min Est GFR (Non-Af Amer) 40.4 ml/min BUN/Creatinine Ratio 34.4 H (10-20) Glucose 153 H (70-99(Fasting)) mg/dl Calcium 9.4 (8.5-10.1) mg/dl Magnesium 2.1 (1.7-2.4) mg/dl Total Bilirubin 0.6 (0.2-1.0) mg/dl AST 46 H (13-39) U/L ALT 42 (7-52) U/L Alkaline Phosphatase 155 H (34-104) U/L Troponin I High Sens 24.0 H (0-14) pg/ml Total Protein 7.4 (6.0-8.3) gm/dl Albumin 3.3 L (3.4-5.0) gm/dl Globulin 4.1 H (2.5-4.0) gm/dl Albumin/Globulin Ratio 0.8 L (0.9-2) Procalcitonin (0-0.5) ng/ml SARS-CoV-2, RNA, NAAT (NEGATIVE) 12/19/21 12/19/21 Range/Units 10:25 13:25 WBC (4.8-10.8) K/uL RBC (4.2-5.4) M/uL Hgb (12.0-16.0) g/dL Hct (37-47) % MCV (80-100) fL MCH (25-34) pg MCHC (32-36) g/dL RDW Std Deviation (36.4-46.3) fL RDW Coeff of Yohannes (11.5-14.5) % Plt Count (130-400) K/uL Immature Gran % (Auto) % Neut % (Auto) % Lymph % (Auto) % [place] % (Auto) % Eos % (Auto) % Baso % (Auto) % Neut # (Auto) (1.4-6.5) K/uL Lymph # (Auto) (1.2-3.4) K/uL [place] # (Auto) (0.11-0.59) K/uL Eos # (Auto) (0-0.5) K/uL Baso # (Auto) (0-0.2) K/uL Immature Gran # (Auto) (0.00-0.02) K/uL Polychromasia Anisocytosis Microcytosis Sodium (136-145) mmol/L Potassium (3.5-5.1) mmol/L Chloride (98-107) mmol/L Carbon Dioxide (21-32) mmol/L Anion Gap (3-11) BUN (6-23) mg/dl Creatinine (0.6-1.2) mg/dl Est Cr Clr Drug Dosing Est GFR ( Amer) ml/min Est GFR (Non-Af Amer) ml/min BUN/Creatinine Ratio (10-20) Glucose (70-99(Fasting)) mg/dl Calcium (8.5-10.1) mg/dl Magnesium (1.7-2.4) mg/dl Total Bilirubin (0.2-1.0) mg/dl AST (13-39) U/L ALT (7-52) U/L Alkaline Phosphatase (34-104) U/L Troponin I High Sens (0-14) pg/ml Total Protein (6.0-8.3) gm/dl Albumin (3.4-5.0) gm/dl Globulin (2.5-4.0) gm/dl Albumin/Globulin Ratio (0.9-2) Procalcitonin 0.13 (0-0.5) ng/ml SARS-CoV-2, RNA, NAAT NEGATIVE (NEGATIVE) Administered Medications Miscellaneous (Patient's Height &/Or Weight Needed) 1 ea N/A Q2H KEV Stop: 12/20/21 03:16 Last Admin: 12/19/21 17:45 Dose: 1 ea Documented by: [id number] Discontinued Medications Albuterol (Albut/Ipratrop 3mg/0.5mg Neb 3 Ml Vial) 3 ml NEB NOW STA; Protocol Stop: 12/19/21 13:15 Last Admin: 12/19/21 13:51 Dose: 3 ml Documented by: [id number] Furosemide (Furosemide 40 Mg/4 Ml Vial) 40 mg IV ONE ONE Stop: 12/19/21 13:13 Last Admin: 12/19/21 13:51 Dose: 40 mg Documented by: [id number] Methylprednisolone (Methylprednisolone 125 Mg/2 Ml Vial) 125 mg IV NOW STA Stop: 12/19/21 14:45 Last Admin: 12/19/21 15:00 Dose: 125 mg Documented by: [id number] Imaging Data Radiologist's Impression: Chest X-Ray 12/19/21 10:26 XR chest 1V portable CLINICAL HISTORY: SOB TECHNIQUE: Single frontal radiograph of the chest was obtained. Comparison: Comparison is made to chest radiograph 11/11/2021 FINDINGS: No lines and tubes are seen. Cardiomegaly is noted. Lungs are underinflated but clear. No evidence of pleural effusion or pneumothorax. IMPRESSION: Cardiomegaly with mild pulmonary edema. ACT 112: Negative or not required by law. Electronically signed by: Osvaldo Sanchez M.D. 12/19/2021 10:[address] 12/19/21 13:10 CT head/brain wo con CLINICAL HISTORY: altered ms Technique: Contiguous axial CT images of the head were acquired from the base of the skull to the vertex without intravenous contrast administration. Images were viewed in brain, subdural and bone windows. Automated dose lowering techniques and/or adjustment according to patient size were utilized for this exam. Comparison: Comparison is made to CT head 08/03/2021 Findings: Areas of decreased attenuation are present in the periventricular and subcortical white matter bilaterally consistent with small vessel ischemic disease. Generalized cerebral atrophy with commensurate enlargement of the ventricles, sulci, and cisterns is also present. There is no acute intracranial hemorrhage or evidence of acute territorial infarction. No shift of the midline structures, mass effect, or extra-axial abnormalities are shown. Atherosclerotic calcifications are present in the intracranial segments of the internal carotid arteries. Encephalomalacia in the left WHITEWASHER distribution is unchanged from prior exam. Imaged portions of the paranasal sinuses and mastoid air cells are clear. The orbits appear normal. There are no acute fractures of the calvaria or scalp swelling. Impression: No acute intracranial hemorrhage, no evidence of acute territorial infarction or other acute intracranial disease process. ACT 112: Negative or not required by law. Electronically signed by: Osvaldo Sanchez M.D. 12/19/2021 2:05 PM Discharge Plan Visit Data Chief Complaint: Confusion ED Provider: Jyoti Anne Discharge Problem: Acute exacerbation of chronic obstructive pulmonary disease, Pulmonary edema, Acute alteration in mental status Patient Disposition: Admitted As Inpatient Discharge Instructions Interventions: ED Discharge Assessment Last Done: 12/19/21 16:29 Discharge Problem: Pulmonary edema Qualifiers: Chronicity: acute Qualified Code(s): J81.0 - Acute pulmonary edema
[2021-12-19 11:34] LABS: Alanine Aminotransferase 42 U/L (7-52); Albumin Globulin Ratio 0.8 (0.9-2); Albumin Level 3.3 gm/dl (3.4-5.0); Alkaline Phosphatase 155 U/L (34-104); Anion Gap 6 (3-11); Aspartate Aminotransferase 46 U/L (13-39); Bilirubin,Total 0.6 mg/dl (0.2-1.0); Blood Urea Nitrogen 42 mg/dl (6-23); Calcium 9.4 mg/dl (8.5-10.1); Carbon Dioxide 30 mmol/L (21-32); Chloride 102 mmol/L (98-107); Globulin 4.1 gm/dl (2.5-4.0); Glucose 153 mg/dl (70-99(Fasting)); Potassium 4.3 mmol/L (3.5-5.1); Sodium 138 mmol/L (136-145); Total Protein 7.4 gm/dl (6.0-8.3)
[2021-12-19 12:02] LABS: Anisocytosis Present; Basophils # (auto) 0.04 K/uL (0-0.2); Basophils % (auto) 0.5 %; Eosinophils # (auto) 0.21 K/uL (0-0.5); Eosinophils % (auto) 2.4 %; Hematocrit (blood only) 32.6 % (37-47); Hemoglobin 8.5 g/dL (12.0-16.0); Immature Granulocytes # (auto) 0.02 K/uL (0.00-0.02); Immature Granulocytes % (auto) 0.2 %; Lymphocytes # (auto) 0.89 K/uL (1.2-3.4); Lymphocytes % (auto) 10.1 %; Mean Corpuscular Hemoglobin 18.4 pg (25-34); Mean Corpuscular Hgb Conc 26.1 g/dL (32-36); Mean Corpuscular Volume 70.4 fL (80-100); Monocytes # (auto) 0.71 K/uL (0.11-0.59); Monocytes % (auto) 8.1 %; Neutrophils # (auto) 6.93 K/uL (1.4-6.5); Neutrophils % (auto) 78.7 %; Platelet Count 176 K/uL (130-400); Polychromasia 1+; RDW Coefficient of Variation 20.1 % (11.5-14.5); RDW Standard Deviation 50.7 fL (36.4-46.3); Red Blood Count 4.63 M/uL (4.2-5.4)
[2021-12-19 12:03] LABS: Microcytosis Present
[2021-12-19 12:20] LABS: BUN Creatinine Ratio 34.4 (10-20); Est GFR (African American) 46.8 ml/min; Est GFR (Non-African American) 40.4 ml/min; Magnesium 2.1 mg/dl (1.7-2.4)
[2021-12-19] MEDS ORDERED: FUROSEMIDE 40 MG/4 ML VIAL IV ONE (13:12)
[2021-12-19] MEDS ORDERED: ALBUT/IPRATROP 3MG/0.5MG NEB 3 ML VIAL NEB STA (13:14)
--- NOTE | 2021-12-19 14:07 | CT Scan Report ---
CT head/brain wo con CLINICAL HISTORY: altered ms Technique: Contiguous axial CT images of the head were acquired from the base of the skull to the sammy danny without intravenous contrast administration. Images were viewed in brain, subdural and bone [facility] . Automated dose lowering techniques and/or adjustment according to patient size were utilized for this exam. Comparison: Comparison is made to CT head 08/03/2021 Findings: Areas of decreased attenuation are present in the periventricular and subcortical white matter bilate rally consistent with small vessel ischemic disease. Generalized cerebral atrophy with commensurate e nlargement of the ventricles, sulci, and cisterns is also present. There is no acute intracranial hem orrhage or evidence of acute territorial infarction. No shift of the midline structures, mass effect, or extra-axial abnormalities are shown. Atherosclerotic calcifications are present in the intracran ial segments of the internal carotid arteries. Encephalomalacia in the left [place] distribution is uncha nged from prior exam. Imaged portions of the paranasal sinuses and mastoid air cells are clear. The orbits appear normal. There are no acute fractures of the calvaria or scalp swelling. Impression: No acute intracranial hemorrhage, no evidence of acute territorial infarction or other acute intracra nial disease process. ACT 112: Negative or not required by law. Electronically signed by: Osvaldo Sanchez M.D. 12/19/2021 2:05 PM
[2021-12-19] MEDS ORDERED: methylPREDNISolone 125 MG/2 ML VIAL IV STA (14:44)
[2021-12-19] MEDS ORDERED: ONDANSETRON INJ 2 MG/ML 2 ML VIAL IV PRN (16:52)
[2021-12-19] MEDS ORDERED: GLUCAGON FOR INJ 1 MG VIAL SQ PRN (16:52)
[2021-12-19] MEDS ORDERED: GLUCOSE 40% GEL 15 GM TUBE PO PRN (16:52)
[2021-12-19] MEDS ORDERED: CARBOHYDRATES FOR HYPOGLYCEMIA PO PRN (16:52)
[2021-12-19] MEDS ORDERED: DEXTROSE 50% 50 ML SYRINGE IV PRN (16:52)
[2021-12-19] MEDS ORDERED: PHARMACY GLYCEMIC MGMT CONSULT PRN (16:52)
[2021-12-19] MEDS ORDERED: GLUCOSE 10 TAB/TUBE PO PRN (16:52)
[2021-12-19] MEDS ORDERED: Patient's HEIGHT &/or WEIGHT Needed SCH (17:15)
--- NOTE | 2021-12-19 17:23 | History & Physical Report ---
Date of Service December 19, 2021 Assessment & Plan (1) Acute exacerbation of chronic obstructive pulmonary disease: Plan: Significant wheezing noted on exam by ER doctor who reported dramatic improvement with DuoNeb. - Continue steroids, DuoNebs standing and PRN - Procalcitonin negative and CXR without lobar consolidation - start azithromycin with low concern for acute bacterial pneumonia (2) Pulmonary edema: Plan: With increased LE edema as well. Concern for CHF. Given Lasix 40 mg IV in the ER. - Echo ordered - Wait for Cr in AM to re-dose Lasix (3) Diabetes type 2, uncontrolled: Plan: With labile blood sugars at home. Is on a non-traditional regimen with NPH BID. A1c was 7.8% in 10/2021. - Hold metformin and NPH insulin - Sliding scale insulin - Diabetic consult ordered as she will be on steroids and blood sugar will likely be even more labile. (4) Anemia: Plan: Hgb down to 8.5 this admission. Has been trending down since 07/2021. Unsure when last EGD or colonoscopy would have occurred. - Monitor hgb - Occult hemoglobin - Ask son re: EGD/colo - Might consider stopping anticoagulation given age and comorbidities - IV iron while hospitalized (5) Acute alteration in mental status: Plan: Likely metabolic encephalopathy from her variety of medical issues vs. worsening dementia. - Monitor (6) HTN (hypertension): Plan: BP in the ER was 160/71. - Continue home beta-hank, ARB (7) Transaminitis: Plan: LFTs mildly elevated from priors. Not significantly high, but also no prior liver imaging. 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 - Continue Xarelto - Continue statin (9) Atrial fibrillation: Plan: Now in normal sinus. - Continue beta-hank - Continue Xarelto (10) Depression: Plan: - Continue home duloxetine (11) DVT prophylaxis: Plan: On Xarelto for afib Code status - Son confirms DNR/DNI. Admission and Anticipated Discharge Date Admission Date: December 19, 2021 History of Present Illness Primary Care Provider: Roderick Nation MD 86yo F w/ hx of DM and dementia who presents from home due to sons' concern for confusion. The patient is in her room alone and is a poor historian. She is fairly lethargic and hard of hearing, so she wakes up, answers "No" to all my questions, and closes her eyes and falls back asleep. According to notes and the son, the patient has been having progressive cognitive impairment. Per the son, this seems increased since the passing of close family members. She had an episode of atrial fibrillation and stroke, and some of this may be due to hearing and vision problems as well. Additionally, she is somewhat hypoxemic intermittently at home. She was on home O2 for some time, but stopped about 1 year ago. She was prescribed 2L at home by her PCP in mid-November. EMS was called on December 17 because she had home SpO2 of 50% which improved with an increase to 4L NC. Additionally, she has been having very volatile blood sugars, with sugars in the 260 range, then crashing down to the 30s. Finally, they felt that she was going "in and out" of coherence. On my interview, the patient denies any review of systems, but also does not really participate in the conversation. Allergies Allergy/AdvReac Type Severity Reaction Status Date / Time erythromycin base Allergy Intermediate RASH, Verified 12/19/21 16:33 VOMITING zolpidem [From Ambien] Allergy Unknown Unknown Verified 12/19/21 16:33 atorvastatin AdvReac Intermediate MYALGIA Verified 12/19/21 16:33 rosuvastatin AdvReac Intermediate MYALGIA Verified 12/19/21 16:33 Home Medications Medication Instructions Recorded Confirmed Type acetaminophen 650 mg 1,300 mg PO Q12H 08/22/18 12/19/21 History tablet,extended release (Tylenol Arthritis Pain) loratadine 10 mg capsule 10 mg PO DAILY PRN 08/22/18 12/19/21 History multivitamin 1 tab PO QAM 08/22/18 12/19/21 History polyethylene glycol 3350 17 gram 17 g PO DAILY PRN 08/22/18 12/19/21 History oral powder packet (Miralax) rivaroxaban 20 mg tablet (Xarelto) 20 mg PO QPM 08/22/18 12/19/21 History Lactobacillus 1 cap PO DAILY cap 03/13/19 12/19/21 History acidophilus-Bifidobac.animalis 31 billion cell capsule bisacodyl 5 mg tablet,delayed 5 mg PO DAILY PRN tab 03/13/19 12/19/21 History release blood-glucose meter (OneTouch #1 ea 03/13/19 12/08/21 History Verio Flex Start) docusate sodium 100 mg capsule 100 mg PO QAM 12/19/19 12/19/21 History OneTouch Verio test strips (blood #400 ea NS 09/29/20 12/08/21 Rx sugar diagnostic) cholecalciferol (vitamin D3) 50 4,000 unit PO DAILY tab 12/15/20 12/19/21 History mcg (2,000 unit) tablet (Vitamin D3) Novofine 32 32 gauge x 1/4" needle #200 ea NS 04/27/21 12/08/21 Rx (pen needle, diabetic) diclofenac sodium 1 % topical gel 4 g TOPICAL QID PRN g 07/10/21 12/19/21 History estradiol See Rx Instructions VAGINAL 07/10/21 12/19/21 History .COMPLEX PRN g nystatin 100,000 unit/gram topical 1 applic TOP BID PRN #60 g 07/10/21 12/19/21 Rx powder duloxetine 20 mg capsule,delayed 20 mg PO QAM #30 cap 10/05/21 12/19/21 Rx release magnesium oxide 400 mg PO DAILY 10/08/21 12/19/21 History Humulin 70/30 U-100 Insulin See Rx Instructions SQ QAM #30 ml 10/14/21 12/19/21 Rx KwikPen 100 unit/mL subcutaneous NS (insulin NPH and regular human) tramadol 50 mg tablet 100 mg PO TID PRN #180 tab 10/19/21 12/19/21 Rx metformin 500 mg tablet,extended 500 mg PO BID #180 tab 10/22/21 12/19/21 Rx release 24 hr metoprolol succinate 25 mg 25 mg PO BID #90 tab 10/22/21 12/19/21 Rx tablet,extended release 24 hr furosemide 20 mg tablet 20 mg PO DAILY #90 tab 11/18/21 12/19/21 Rx oxybutynin 3.9 mg/24 hr semiweekly See Rx Instructions .ROUTE 12/07/21 12/19/21 Rx transdermal patch (Oxytrol) .COMPLEX #8 patch telmisartan 40 mg tablet 40 mg PO DAILY #30 tab 12/14/21 12/19/21 Rx Oxygen Home #1 ea 12/15/21 Rx rosuvastatin 40 mg tablet 40 mg PO QAM 12/19/21 12/19/21 History Past Med/Surg History Medical History Asthma RARELY USES PRN INH Chronic kidney disease, stage I Chronic pain syndrome Chronic renal insufficiency COPD exacerbation Insomnia Loss of protective sensation of skin of foot On home oxygen therapy 2 LPM PRN Osteoarthritis Vaginitis Surgical History History of cataract surgery History of colonoscopy with polypectomy History of hysterectomy History of tonsillectomy History of tooth extraction History of total knee replacement RT History of tubal ligation Family History Brother Anxiety Pancreatic cancer Mother Malignant neoplasm of brain Throat cancer Father Malignant neoplasm of urinary bladder Daughter Pancreatic cancer Denies family history of Ovarian cancer Prostate cancer Myocardial infarction Breast cancer Lung cancer Colorectal cancer Social History Smoking Status: Never smoker Tobacco Type: Cigarettes Age Started Using Tobacco: 17; Age Quit Using Tobacco: 66; packs per day: 1; Cigarettes Per Day: 1 pack per day; Number of Years Since Quit: 5; Second Hand Exposure: No; Hx Alcohol Use: No Hx Substance Use: No Preferred Language: Chinese Communication Ability: Impaired Visual Impairment: Limited Hearing Ability: Use of Hearing Aid 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 Beliefs That Will Affect Care: None marital status: / Current Living Situation: Family Current Living Situation Comment: home with 2 sons current occupational status: retired How many Children do You have: 3 Other Information That Helps Us Care for You: No Feels Safe at Home: Yes Childhood Exposure to Second-Hand Smoke: No caffeine: Yes (drinks coffee in morning ) Dental Care, Regularly: Yes Physical Activity Frequency: Does not Exercise Seatbelt Use: always Sunscreen Use: Yes Assistive Devices: Walker Review of Systems Review of Systems: Unobtainable due to cognitive status Physical Exam Constitutional: WD/WN, vitals as above Eyes: EOM intact bilaterally; no conjunctival abnormality ENMT: external ear and nose normal, oropharynx normal Neck: trachea midline, no thyromegaly normal visual inspection Respiratory: normal respiratory effort, lungs clear to auscultation no respiratory distress Cardiovascular: RRR, no murmur, no edema Gastrointestinal (Abdomen): Inspection/Auscultation: abdomen normal to inspection; abdomen not distended Musculoskeletal: no cyanosis or clubbing, extremities motor strength 5/5 Skin: no rashes, warm and dry Neurologic: moves all extremities; + not awake Psychiatric: Orientation: oriented to person; + uncooperative Results & Data Results & Data ([facility]) Vital Signs (Past 12 Hours) Vital Signs Temp Pulse Pulse Resp BP BP Pulse Ox 12/19/21 17:10 36.1 C L 62 18 160/71 H 94 12/19/21 16:00 62 18 149/77 H 94 12/19/21 15:30 60 17 149/56 H 94 12/19/21 15:00 62 16 140/82 91 12/19/21 14:31 61 22 153/58 H 94 12/19/21 13:58 65 22 185/73 H 100 12/19/21 13:00 65 18 208/86 H 100 12/19/21 12:55 68 21 196/158 H 98 12/19/21 12:01 64 17 210/87 H 100 12/19/21 11:31 221/91 H 12/19/21 10:40 63 20 97 12/19/21 10:30 80 27 H 222/85 H 96 12/19/21 10:04 36.9 C 65 14 194/90 H 79 L Code Status & VTE Plan VTE Prophylaxis Plan VTE Prophylaxis will be ordered: Yes PG Care Time/CCT Total # of Minutes Spent Total Time Spent with Patient: Total time spent is greater than 50% in coordination of care (as documented) at patient's floor/unit and/or counseling patient: Coding Level of Care Code 35611 Initial Inpt Care Lvl 3 Diagnoses Acute exacerbation of chronic obstructive pulmonary disease J44.1 Pulmonary edema J81.0 Chronicity: acute Acute alteration in mental status R41.82 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
[2021-12-19] MEDS: INSULIN ASPART PER UNIT SC SCH ×2 (18:20→20:01)
[2021-12-19] MEDS: AZITHROMYCIN 250 MG TAB PO SCH (19:36)
[2021-12-19] MEDS: IRON SUCROSE 300 MG in SODIUM CHLORIDE 0.9% 250 ML IV SCH (19:36)
[2021-12-19] MEDS: ALBUT/IPRATROP 3MG/0.5MG NEB 3 ML VIAL NEB SCH ×2 (19:40→22:49)
[2021-12-19] MEDS: METOPROLOL SUCC 25MG EXT REL TAB PO SCH (20:15)
[2021-12-20] MEDS: MELATONIN 3 MG TAB PO PRN ×2 (00:08→23:34)
[2021-12-20] MEDS: INSULIN ASPART PER UNIT SC SCH ×6 (00:46→21:04)
[2021-12-20] MEDS: traMADol HCL 50 MG TABLET PO PRN ×2 (02:12→18:29)
[2021-12-20] MEDS: ALBUT/IPRATROP 3MG/0.5MG NEB 3 ML VIAL NEB SCH ×6 (03:35→22:26)
[2021-12-20] MEDS: TELMISARTAN 40 MG TAB PO SCH (08:21)
[2021-12-20] MEDS: ROSUVASTATIN CALCIUM 20 MG TAB PO SCH (08:21)
[2021-12-20] MEDS: ACETAMINOPHEN 325 MG TAB PO PRN (08:21)
[2021-12-20] MEDS: predniSONE 20 MG TAB PO SCH (08:21)
[2021-12-20] MEDS: DULoxetine HCL 20 MG CAP PO SCH (08:21)
[2021-12-20] MEDS: IRON SUCROSE 300 MG in SODIUM CHLORIDE 0.9% 250 ML IV SCH ×2 (08:22→08:23)
[2021-12-20] MEDS: METOPROLOL SUCC 25MG EXT REL TAB PO SCH ×2 (08:26→20:10)
[2021-12-20] MEDS ORDERED: RIVAROXABAN 20 MG TAB PO SCH (09:00)
[2021-12-20] MEDS ORDERED: INSULIN HUMAN NPH SC SCH ×2 (09:00→09:30)
[2021-12-20 09:13] LABS: BUN Creatinine Ratio 32.7 (10-20); Calcium 9.6 mg/dl (8.5-10.1); Creatinine Clr Calc Pharmacy 33.8 ml/min; Est GFR (African American) 54.8 ml/min; Est GFR (Non-African American) 47.3 ml/min
[2021-12-20 09:14] LABS: Hematocrit (blood only) 31.8 % (37-47); Hemoglobin 8.5 g/dL (12.0-16.0); Mean Corpuscular Hemoglobin 18.7 pg (25-34); Mean Corpuscular Hgb Conc 26.7 g/dL (32-36); Nucleated RBC # (auto) 0.07 K/uL (0-0); Nucleated RBC % (auto) 0.6 %; Platelet Count 172 K/uL (130-400); RDW Coefficient of Variation 20.2 % (11.5-14.5); RDW Standard Deviation 51.4 fL (36.4-46.3); Red Blood Count 4.54 M/uL (4.2-5.4); White Blood Count 12.41 K/uL (4.8-10.8)
--- NOTE | 2021-12-20 09:29 | Pharmacy Report ---
Pharmacy Glycemic Short Note 2 - Date of Service December 20, 2021 - Glycemic Short BSG Results (Last 24 hours): 12/19/21 12/19/21 12/19/21 10:25 17:14 19:19 Glucose 153 H POC Glucose 84 28 L* 12/19/21 12/19/21 12/19/21 19:21 19:37 19:39 Glucose POC Glucose 31 L* 56 L* 96 12/19/21 12/19/21 12/19/21 19:57 21:52 23:56 Glucose POC Glucose 110 H 252 H 319 H* 12/19/21 12/20/21 12/20/21 23:57 03:59 06:08 Glucose POC Glucose 300 H 202 H 182 H 12/20/21 12/20/21 08:05 08:16 Glucose 140 H POC Glucose 154 H OUTPATIENT ANTIDIABETIC REGIMEN: * Humulin 70/30 - 50 units with breakfast, 20 units with dinner, metformin 500 mg bid ASSESSMENT: * 86 year old admitted with confusion. BSGs last evening on arrival in 30s - treated per hypoglycemia protocol. Per RN, patient's son states she took her insulin yesterday morning * Fasting BSG 154 mg/dL - insulin coverage given over last evening as BSGs trending up quickly in the 300s. Notes suggest patient's BSGs have been very labile at home * Will start conservatively with NPH for this AM. I anticipate BSGs to trend upward with prednisone 40 mg daily. Will star at 0.2 unit/kg of NPH to be given with daily prednisone. Will have loose parameters for novolog for now and target 140-180 goal range PLAN FOR INPATIENT GLYCEMIC CONTROL: * Hold outpatient oral diabetes medications * Basal insulin * NPH 15 units daily - to be given with prednisone * Bolus insulin * NovoLog per scale ACHS or Q6hrs while NPO * Goal Range: Low 140 mg/dL - High 180 mg/dL * Correction Factor: 30 mg/dL/unit * Nutritional / Prandial insulin per carb ratio of 1 unit per 10 grams CHO consumed
--- NOTE | 2021-12-20 10:50 | Hospitalist Progress Note ---
Date of Service December 20, 2021 Assessment & Plan (1) Acute exacerbation of chronic obstructive pulmonary disease: Plan: Due to CHF. Continue diuresis. Continue nebulizers and steroid therapy. Should quickly returned to baseline with diuresis. Procalcitonin negative and CXR without lobar consolidation. Continue azithromycin with low concern for acute bacterial pneumonia (2) Pulmonary edema: Plan: Due to acute diastolic congestive heart failure. Continue Lasix diuresis. Await cardiac echo results. (3) Diabetes type 2, uncontrolled: Plan: ADA diet. Basal insulin. Sliding scale coverage. HA1c was 7.8% in 10/2021. - Holding metformin while hospitalized (4) Anemia: Plan: Hgb down to 8.5 this admission. Has been trending down since 07/2021. Unsure when last EGD or colonoscopy would have occurred. Monitor hgb. Check fecal occult blood. Most recent iron level was within normal limits. (5) Acute alteration in mental status: Plan: resolved l (6) HTN (hypertension): Plan: BP in the ER was 160/71. - Continue home beta-hank, ARB (7) Transaminitis: Plan: LFTs mildly elevated from priors. Probably related to congestive heart failure. Should normalize. Serial labs. 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 - Continue Xarelto - Continue statin (9) Atrial fibrillation: Plan: Now in normal sinus. - Continue beta-hank - Continue Xarelto (10) Depression: Plan: - Continue home duloxetine (11) DVT prophylaxis: Plan: On Xarelto for afib Code status - Son confirms DNR/DNI. Plan: Anticipate eventual discharge to home Admission and Anticipated Discharge Date Admission Date: December 19, 2021 Subjective Alert and oriented. No distress. I believe her current situation is due to diastolic CHF which produced exacerbation of her COPD. She is better after Lasix diuresis but also is on azithromycin and prednisone orally. We will continue parenteral Lasix. Most recent iron level was normal. Iron supplementation parenterally has been discontinued. Will obtain OT and PT evaluations. Review of Systems Review of Systems: Constitutional-no fever or chills ENT-no blurred vision, no double vision, no epistaxis, no sore throat Respiratory-no cough. Wheezing has improved. No pleuritic pain. No hemoptysis Cardiac-no palpitations, no chest pain, no syncope GI-no nausea, vomiting, diarrhea, melena, hematochezia -no urinary retention, no urinary incontinence, no dysuria, no hematuria Musculoskeletal-no joint pain, no muscle tenderness. She has developed peripheral edema recently Skin-no bruising, no rashes, no pruritus Neuro-no isolated weakness, no paresthesia, no weakness Psych-no depression, no anxiety Physical Exam Physical Exam: General-alert and oriented x3, no fevers, no chills. Obese HEENT-head atraumatic and normocephalic, TMs intact bilaterally, pupils equal and reactive to light, extraocular muscles intact Neck-no lymphadenopathy or thyromegaly, trachea midline Chest- bibasilar inspiratory rales. No wheezing or rhonchi at this time. Cardiac-regular rate and rhythm, normal S1 and S2 Abdomen-normal bowel sounds, nontender, no hepatosplenomegaly Extremities-no cyanosis, clubbing. 1+ pitting edema noted bilaterally below the knees Neuro-cranial nerves II through XII intact, motor and sensory function within normal limits, strength symmetrical , no focal deficits Psych-normal affect, normal mood Results & Data Results & Data ([facility]) Vital Signs (Past 12 Hours) Vital Signs Temp Pulse Resp BP BP Pulse Ox 12/20/21 08:56 36.5 C 83 16 178/74 H 97 12/20/21 08:30 36.5 C 80 16 190/81 H 99 12/20/21 07:12 36.8 C 73 22 153/62 H 97 12/20/21 06:59 77 17 93 12/20/21 03:35 74 20 96 12/19/21 22:50 84 20 94 Laboratory Results 12/20/21 08:05 12/20/21 08:05 PG Care Time/CCT Total # of Minutes Spent Total Time Spent with Patient: Total time spent is greater than 50% in coordination of care (as documented) at patient's floor/unit and/or counseling patient: Coding Level of Care Code 68062 Subseq Hosp Care Lvl 3 Diagnoses Acute exacerbation of chronic obstructive pulmonary disease J44.1 Pulmonary edema J81.0 Chronicity: acute Diabetes type 2, uncontrolled E11.65 Anemia D64.9 Acute alteration in mental status R41.82 HTN (hypertension) I10 Transaminitis R74.01 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
--- NOTE | 2021-12-20 11:26 | Ultrasound Report ---
RIGHT LOWER EXTREMITY VENOUS DOPPLER CLINICAL HISTORY: R>L leg swelling COMPARISON STUDY: Bilateral lower extremity venous Doppler ultrasound November 13, 2015. TECHNIQUE: Sonography of the deep venous system of the right lower extremity was performed. Compress ion and augmentation were evaluated. FINDINGS: The right common femoral, superficial femoral and popliteal veins were compressible. Augme ntation was normal. Flow was shown within the deep calf vessels although calf vessels were suboptimal ly visualized. Lower extremity edema is noted. IMPRESSION: No evidence of deep venous thrombus within the right lower extremity although right calf vessels suboptimally visualized. ACT 112: Negative or not required by law. Electronically signed by: Gilmar Benjamin M.D. 12/20/2021 11:24 AM
[2021-12-20] MEDS: FUROSEMIDE 40 MG/4 ML VIAL IV SCH ×2 (11:30→20:11)
[2021-12-20] MEDS: AZITHROMYCIN 250 MG TAB PO SCH (19:03)
--- NOTE | 2021-12-20 22:31 | XCELERA ---
[id number] \\[id number]
[2021-12-21] MEDS: ALBUT/IPRATROP 3MG/0.5MG NEB 3 ML VIAL NEB SCH ×6 (03:09→22:38)
[2021-12-21 07:16] LABS: Basophils # (auto) 0.03 K/uL (0-0.2); Basophils % (auto) 0.2 %; Eosinophils # (auto) 0.08 K/uL (0-0.5); Eosinophils % (auto) 0.7 %; Hematocrit (blood only) 32.5 % (37-47); Hemoglobin 8.7 g/dL (12.0-16.0); Immature Granulocytes # (auto) 0.04 K/uL (0.00-0.02); Immature Granulocytes % (auto) 0.3 %; Lymphocytes # (auto) 1.32 K/uL (1.2-3.4); Lymphocytes % (auto) 10.8 %; Mean Corpuscular Hemoglobin 18.9 pg (25-34); Mean Corpuscular Hgb Conc 26.8 g/dL (32-36); Mean Corpuscular Volume 70.5 fL (80-100); Monocytes # (auto) 1.43 K/uL (0.11-0.59); Monocytes % (auto) 11.7 %; Neutrophils # (auto) 9.35 K/uL (1.4-6.5); Neutrophils % (auto) 76.3 %; Nucleated RBC # (auto) 0.08 K/uL (0-0); Nucleated RBC % (auto) 0.7 %; Platelet Count 175 K/uL (130-400); RDW Coefficient of Variation 20.4 % (11.5-14.5); RDW Standard Deviation 51.5 fL (36.4-46.3); Red Blood Count 4.61 M/uL (4.2-5.4); White Blood Count 12.25 K/uL (4.8-10.8)
[2021-12-21 07:31] LABS: Anisocytosis Present; Hypochromasia Present; Polychromasia 1+
[2021-12-21 08:14] LABS: BUN Creatinine Ratio 28.8 (10-20); Calcium 9.6 mg/dl (8.5-10.1); Creatinine Clr Calc Pharmacy 27.4 ml/min; Est GFR (African American) 42.5 ml/min; Est GFR (Non-African American) 36.7 ml/min; Potassium 3.4 mmol/L (3.5-5.1)
[2021-12-21] MEDS: predniSONE 20 MG TAB PO SCH (08:42)
[2021-12-21] MEDS: DULoxetine HCL 20 MG CAP PO SCH (08:42)
[2021-12-21] MEDS: TELMISARTAN 40 MG TAB PO SCH (08:42)
[2021-12-21] MEDS: ROSUVASTATIN CALCIUM 20 MG TAB PO SCH (08:42)
[2021-12-21] MEDS: METOPROLOL SUCC 25MG EXT REL TAB PO SCH ×2 (08:42→20:14)
[2021-12-21] MEDS: FUROSEMIDE 40 MG/4 ML VIAL IV SCH (08:42)
[2021-12-21] MEDS: INSULIN ASPART PER UNIT SC SCH ×4 (08:53→21:04)
[2021-12-21] MEDS ORDERED: INSULIN HUMAN NPH SC SCH (09:00)
[2021-12-21 09:20] LABS: Estimated Average Glucose 163 mg/dl; Hemoglobin A1C 7.3 % (4.5-5.6)
[2021-12-21] MEDS ORDERED: POTASSIUM CHLORIDE 20 MEQ/15 ML UDC PO STA (12:34)
--- NOTE | 2021-12-21 12:41 | Hospitalist Progress Note ---
Date of Service December 21, 2021 Assessment & Plan (1) Acute alteration in mental status: Plan: May be progressive dementia; do not see any overt exacerbating factors; observe; defer MRI (2) CHF exacerbation: Plan: Suspected hypoxia secondary, valvular heart disease; good urine output and could be slightly over diuresed relatively; switch Lasix to once a day (3) Acute exacerbation of chronic obstructive pulmonary disease: Plan: At present I see no evidence of COPD exacerbation; now that initiated complete treatment (4) Diabetes type 2, uncontrolled: Plan: Sugars still fluctuating; pharmacy glycemic consult (5) Anemia: Plan: Microcytic; iron studies; IV iron if deficient (6) HTN (hypertension): Plan: Poorly controlled, add CCB (7) Transaminitis: Plan: LFTs mildly elevated from priors. Probably related to congestive heart failure. Should normalize. Serial labs. 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 - Continue Xarelto - Continue statin (9) Atrial fibrillation: Plan: Now in normal sinus. - Continue beta-hank - Continue Xarelto (10) Depression: Plan: - Continue home duloxetine (11) DVT prophylaxis: Plan: On Xarelto for afib Code status - Son confirms DNR/DNI. Plan: Hypokalemiareplace Leukocytosis likely steroid related I am told they want placement Admission and Anticipated Discharge Date Admission Date: December 19, 2021 Subjective Follow-up of presentation with mental status changes-confused; son reports progressive dementia Physical Exam Physical Exam: Constitutional and general: Confused, looks biologic age Head and face: No puffiness, atraumatic Eyes: No scleral icterus, extraocular movements normal Neck: Supple, no JVD Musculoskeletal: No acute joint swelling, no bony abnormalities Skin/dermatologic/integument: No rash, no purpura Hematologic and lymphatic: pallor +, no petechia Gastrointestinal/abdomen: Nondistended, soft, nonacute Neurologic: Cranial nerves intact, nonfocal Psychiatry: Awake, alert, pleasant, communicative Cardiovascular: Heart rhythm regular, no rub, systolic murmur about 3 x 6, soft diastolic murmur, no gallop Respiratory: Chest movements equal, no use of accessory muscles, no adventitious sounds Extremities: edema, no cyanosis Results & Data Results & Data ([facility]) Vital Signs (Past 12 Hours) Vital Signs Temp Pulse Pulse Pulse Resp BP Pulse Ox 12/21/21 11:10 90 18 93 12/21/21 07:30 36.3 C L 101 H 18 186/79 H 93 12/21/21 07:04 104 H 22 92 12/21/21 03:11 73 18 94 PG Care Time/CCT Total # of Minutes Spent Total Time Spent with Patient: Total time spent is greater than 50% in coordination of care (as documented) at patient's floor/unit and/or counseling patient: Coding Level of Care Code 64568 Subseq Hosp Care Lvl 2 Diagnoses Acute exacerbation of chronic obstructive pulmonary disease J44.1 Diabetes type 2, uncontrolled E11.65 Anemia D64.9 Acute alteration in mental status R41.82 HTN (hypertension) I10 Transaminitis R74.01 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
[2021-12-21] MEDS: traMADol HCL 50 MG TABLET PO PRN ×2 (12:48→20:14)
[2021-12-21] MEDS ORDERED: FUROSEMIDE 40 MG/4 ML VIAL IV SCH (13:00)
[2021-12-21] MEDS: amLODIPine BESYLATE 5 MG TAB PO SCH (13:24)
--- NOTE | 2021-12-21 13:45 | Pharmacy Report ---
Pharmacy Glycemic Short Note 2 - Date of Service December 21, 2021 - Glycemic Short BSG Results (Last 24 hours): 12/20/21 12/20/21 12/20/21 16:24 17:20 20:45 Glucose POC Glucose 244 H 265 H 275 H 12/21/21 12/21/21 12/21/21 05:46 08:11 12:23 Glucose 160 H POC Glucose 183 H 205 H OUTPATIENT ANTIDIABETIC REGIMEN: * Humulin 70/30 - 50 units with breakfast, 20 units with dinner, metformin 500 mg bid ASSESSMENT: 12/21: * Patient received total 37 units of insulin yesterday; 15 units basal and 22 units bolus. * BSGs yesterday were [phone] mg/dl. Fasting BSG today was 183 mg/dl. * Basal NPH dose increased to 20 units this AM. Prednisone 40 mg daily continued. * Novolog parameters tightened to stress of 2 and goal range tightened as well. Background 12/20/21: * 86 year old admitted with confusion. BSGs last evening on arrival in 30s - treated per hypoglycemia protocol. Per RN, patient's son states she took her insulin yesterday morning * Fasting BSG 154 mg/dL - insulin coverage given over last evening as BSGs trending up quickly in the 300s. Notes suggest patient's BSGs have been very labile at home * Will start conservatively with NPH for this AM. I anticipate BSGs to trend upward with prednisone 40 mg daily. Will star at 0.2 unit/kg of NPH to be given with daily prednisone. Will have loose parameters for novolog for now and target 140-180 goal range PLAN FOR INPATIENT GLYCEMIC CONTROL: * Hold outpatient oral diabetes medications * Basal insulin * NPH 20 units daily - to be given with prednisone * Bolus insulin * NovoLog per scale ACHS or Q6hrs while NPO * Goal Range: Low 120 mg/dL - High 150 mg/dL * Correction Factor: 25 mg/dL/unit * Nutritional / Prandial insulin per carb ratio of 1 unit per 9 grams CHO consumed
[2021-12-21] MEDS: RIVAROXABAN 15 MG TAB PO SCH (15:49)
[2021-12-21] MEDS: INSULIN HUMAN NPH SC SCH (18:01)
[2021-12-21] MEDS: AZITHROMYCIN 250 MG TAB PO SCH (18:08)
[2021-12-21] MEDS: ACETAMINOPHEN 325 MG TAB PO PRN (18:10)
[2021-12-21] MEDS: MELATONIN 3 MG TAB PO PRN (20:14)
--- NOTE | 2021-12-21 22:31 | Electrocardiogram Report ---
Test Reason : Blood Pressure : / mmHG Vent. Rate : 065 BPM Atrial Rate : 065 BPM P-R Int : 196 ms QRS Dur : 090 ms QT Int : 428 ms P-R-T Axes : 046 024 064 degrees QTc Int : 445 ms Normal sinus rhythm Poor R wave progression, consider anterior [place] vs. lead placement vs. LVH Abnormal ECG When compared with ECG of 03-AUG-2021 16:38, Questionable change in initial forces of Anterior leads T wave inversion no longer evident in Anterior leads Confirmed by Sourav Mcwilliams ([id number]) on 12/21/2021 10:31:29 PM Referred By: REFERRED SELF Confirmed By:Sourav Mcwilliams
[2021-12-22] MEDS: ALBUT/IPRATROP 3MG/0.5MG NEB 3 ML VIAL NEB SCH ×5 (03:16→19:35)
[2021-12-22 06:00] LABS: Hematocrit (blood only) 34.7 % (37-47); Hemoglobin 9.8 g/dL (12.0-16.0); Mean Corpuscular Hgb Conc 28.2 g/dL (32-36); Mean Corpuscular Volume 70.7 fL (80-100); Nucleated RBC # (auto) 0.12 K/uL (0-0); Nucleated RBC % (auto) 0.8 %; Platelet Count 205 K/uL (130-400); RDW Coefficient of Variation 20.8 % (11.5-14.5); RDW Standard Deviation 50.6 fL (36.4-46.3); Red Blood Count 4.91 M/uL (4.2-5.4); White Blood Count 14.98 K/uL (4.8-10.8)
[2021-12-22 06:26] LABS: Anisocytosis Present; Basophils # (auto) 0.04 K/uL (0-0.2); Basophils % (auto) 0.3 %; Eosinophils # (auto) 0.07 K/uL (0-0.5); Eosinophils % (auto) 0.5 %; Hypochromasia Present; Immature Granulocytes # (auto) 0.06 K/uL (0.00-0.02); Immature Granulocytes % (auto) 0.4 %; Lymphocytes # (auto) 1.87 K/uL (1.2-3.4); Lymphocytes % (auto) 12.5 %; Monocytes % (auto) 8.7 %; Neutrophils # (auto) 11.64 K/uL (1.4-6.5); Neutrophils % (auto) 77.6 %
[2021-12-22 06:39] LABS: Albumin Level 3.7 gm/dl (3.4-5.0); Calcium 9.6 mg/dl (8.5-10.1); Creatinine Clr Calc Pharmacy 31.7 ml/min; Est GFR (African American) 50.8 ml/min; Est GFR (Non-African American) 43.8 ml/min; Magnesium 1.8 mg/dl (1.7-2.4); Potassium 3.3 mmol/L (3.5-5.1)
[2021-12-22 06:54] LABS: Ferritin 340.1 ng/ml (8-388)
[2021-12-22 06:56] LABS: Albumin Globulin Ratio 0.9 (0.9-2); Globulin 4.3 gm/dl (2.5-4.0)
[2021-12-22] MEDS: predniSONE 20 MG TAB PO SCH (08:53)
[2021-12-22] MEDS: METOPROLOL SUCC 25MG EXT REL TAB PO SCH ×2 (08:53→21:06)
[2021-12-22] MEDS: ROSUVASTATIN CALCIUM 20 MG TAB PO SCH (08:53)
[2021-12-22] MEDS: amLODIPine BESYLATE 5 MG TAB PO SCH (08:53)
[2021-12-22] MEDS: TELMISARTAN 40 MG TAB PO SCH (08:54)
[2021-12-22] MEDS: DULoxetine HCL 20 MG CAP PO SCH (08:54)
[2021-12-22] MEDS: INSULIN ASPART PER UNIT SC SCH ×4 (08:58→21:08)
[2021-12-22] MEDS: INSULIN HUMAN NPH SC SCH ×2 (08:59→18:13)
[2021-12-22] MEDS ORDERED: FUROSEMIDE 40 MG/4 ML VIAL IV SCH (09:00)
[2021-12-22] MEDS ORDERED: POTASSIUM CHLORIDE 20 MEQ/15 ML UDC PO STA (09:25)
--- NOTE | 2021-12-22 16:07 | Hospitalist Progress Note ---
Date of Service December 22, 2021 Assessment & Plan (1) Acute alteration in mental status: Plan: May be progressive dementia; appears to be doing better, observe (2) CHF exacerbation: Plan: Suspected hypoxia secondary to same and underlying valvular heart disease; p.o. Lasix from a.m., 40 mg;does not appear mitral valve disease in echo as far back as 2014; subsequently has seen cardiology in 2019 at least; discussed with son Levon-they decided outpatient follow-up at present (3) Acute exacerbation of chronic obstructive pulmonary disease: Plan: At present I see no evidence of COPD exacerbation; now that initiated complete treatment (4) Diabetes type 2, uncontrolled: Plan: Sugars in good range, pharmacy following (5) Anemia: Plan: Microcytic; iron studies do not suggest iron deficiencyfollow; no need for IV iron (6) HTN (hypertension): Plan: Fluctuating, no change (7) Transaminitis: Plan: LFTs mildly elevated from priors. Probably related to congestive heart failure. Should normalize. Serial labs. 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 - Continue Xarelto - Continue statin (9) Atrial fibrillation: Plan: Now in normal sinus. - Continue beta-hank - Continue Xarelto (10) Depression: Plan: - Continue home duloxetine (11) DVT prophylaxis: Plan: On Xarelto for afib Code status - Son confirms DNR/DNI. Plan: Hypokalemiareplace Leukocytosis likely steroid related Disposition pending Admission and Anticipated Discharge Date Admission Date: December 19, 2021 Subjective Follow-up of presentation with mental status changes-doing better; no specific complaints or new issues Physical Exam Physical Exam: Constitutional and general: Confused, looks biologic age Head and face: No puffiness, atraumatic Eyes: No scleral icterus, extraocular movements normal Neck: Supple, no JVD Musculoskeletal: No acute joint swelling, no bony abnormalities Skin/dermatologic/integument: No rash, no purpura Hematologic and lymphatic: pallor +, no petechia Gastrointestinal/abdomen: Nondistended, soft, nonacute Neurologic: Cranial nerves intact, nonfocal Psychiatry: Awake, alert, pleasant, communicative Cardiovascular: Heart rhythm regular, no rub, systolic murmur about 3 x 6, soft diastolic murmur, no gallop Respiratory: Chest movements equal, no use of accessory muscles, no adventitious sounds Extremities: edema minimal no cyanosis Results & Data Results & Data ([facility]) Vital Signs (Past 12 Hours) Vital Signs Temp Pulse Resp BP Pulse Ox 12/22/21 15:31 77 18 93 12/22/21 11:16 63 18 91 12/22/21 10:22 36.4 C L 69 16 113/71 94 12/22/21 07:10 64 20 97 Laboratory Results Laboratory Results - last 24 hr 12/21/21 12/21/21 12/22/21 17:22 20:33 05:21 WBC RBC Hgb Hct MCV MCH MCHC RDW Std Deviation RDW Coeff of Yohannes Plt Count Immature Gran % (Auto) Neut % (Auto) Lymph % (Auto) [place] % (Auto) Eos % (Auto) Baso % (Auto) Neut # (Auto) Lymph # (Auto) [place] # (Auto) Eos # (Auto) Baso # (Auto) Immature Gran # (Auto) Absolute Nucleated RBC Nucleated RBC % (auto) Hypochromasia Anisocytosis Sodium 138 Potassium 3.3 L Chloride 94 L Carbon Dioxide 32 Anion Gap 12 H BUN 40 H Creatinine 1.14 Est Cr Clr Drug Dosing 31.7 Est GFR ( Amer) 50.8 Est GFR (Non-Af Amer) 43.8 POC Glucose 234 H 198 H Fasting Glucose 144 H Calcium 9.6 Phosphorus 3.0 Magnesium 1.8 Iron 514 H Unsaturated IBC 166 Ferritin 340.1 Total Bilirubin 1.0 AST 62 H ALT 62 H Alkaline Phosphatase 147 H Total Protein 8.0 Albumin 3.7 Globulin 4.3 H Albumin/Globulin Ratio 0.9 TSH 12/22/21 12/22/21 12/22/21 05:21 05:21 08:14 WBC 14.98 H RBC 4.91 Hgb 9.8 L Hct 34.7 L MCV 70.7 L MCH 20.0 L MCHC 28.2 L RDW Std Deviation 50.6 H RDW Coeff of Yohannes 20.8 H Plt Count 205 Immature Gran % (Auto) 0.4 Neut % (Auto) 77.6 Lymph % (Auto) 12.5 [place] % (Auto) 8.7 Eos % (Auto) 0.5 Baso % (Auto) 0.3 Neut # (Auto) 11.64 H Lymph # (Auto) 1.87 [place] # (Auto) 1.30 H Eos # (Auto) 0.07 Baso # (Auto) 0.04 Immature Gran # (Auto) 0.06 H Absolute Nucleated RBC 0.12 H Nucleated RBC % (auto) 0.8 Hypochromasia Present Anisocytosis Present Sodium Potassium Chloride Carbon Dioxide Anion Gap BUN Creatinine Est Cr Clr Drug Dosing Est GFR ( Amer) Est GFR (Non-Af Amer) POC Glucose 165 H Fasting Glucose Calcium Phosphorus Magnesium Iron Unsaturated IBC Ferritin Total Bilirubin AST ALT Alkaline Phosphatase Total Protein Albumin Globulin Albumin/Globulin Ratio TSH 1.554 12/22/21 12:12 WBC RBC Hgb Hct MCV MCH MCHC RDW Std Deviation RDW Coeff of Yohannes Plt Count Immature Gran % (Auto) Neut % (Auto) Lymph % (Auto) [place] % (Auto) Eos % (Auto) Baso % (Auto) Neut # (Auto) Lymph # (Auto) [place] # (Auto) Eos # (Auto) Baso # (Auto) Immature Gran # (Auto) Absolute Nucleated RBC Nucleated RBC % (auto) Hypochromasia Anisocytosis Sodium Potassium Chloride Carbon Dioxide Anion Gap BUN Creatinine Est Cr Clr Drug Dosing Est GFR ( Amer) Est GFR (Non-Af Amer) POC Glucose 143 H Fasting Glucose Calcium Phosphorus Magnesium Iron Unsaturated IBC Ferritin Total Bilirubin AST ALT Alkaline Phosphatase Total Protein Albumin Globulin Albumin/Globulin Ratio TSH PG Care Time/CCT Total # of Minutes Spent Total Time Spent with Patient: Total time spent is greater than 50% in coordination of care (as documented) at patient's floor/unit and/or counseling patient: Coding Level of Care Code 67100 Subseq Hosp Care Lvl 2 Diagnoses Acute alteration in mental status R41.82 CHF exacerbation I50.9 Acute exacerbation of chronic obstructive pulmonary disease J44.1 Diabetes type 2, uncontrolled E11.65 Anemia D64.9 HTN (hypertension) I10 Transaminitis R74.01 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
[2021-12-22] MEDS: RIVAROXABAN 15 MG TAB PO SCH (16:30)
[2021-12-22] MEDS ORDERED: ALBUT/IPRATROP 3MG/0.5MG NEB 3 ML VIAL NEB PRN (20:10)
[2021-12-23] MEDS: MELATONIN 3 MG TAB PO PRN ×2 (00:30→20:53)
[2021-12-23] MEDS: traMADol HCL 50 MG TABLET PO PRN ×3 (00:30→20:53)
--- NOTE | 2021-12-23 03:05 | Communication Note ---
Date of Service: December 23, 2021 Notified by nursing that patient fell in bathroom and was found on floor. Ordering stat ct head. Sleeping when I arrived. Day team to follow clinically. Statrad ct head: No acute change from December 19, 2021. Diffuse cerebral volume loss and chronic, small vessel ischemic changes in the white matter. Old left occipital infarct. No acute intracranial findings. No hemorrhage. No fracture.
--- NOTE | 2021-12-23 07:35 | CT Scan Report ---
CT head/brain wo con CLINICAL HISTORY: 86 years-old Female with fell in bathroom. on anticoag. Acute head trauma status p ost fall TECHNIQUE: Multiple axial CT images of the head were obtained without contrast. A dose lowering tech nique was utilized adhering to the principles of ALARA. CT DOSE: 614.27 mGy.cm COMPARISON: 12/19/2021 FINDINGS: No acute intracranial hemorrhage, midline shift, intracranial mass, hydrocephalus, territorial ischem ia or abnormal extra-axial collection. Chronic left occipital lobe infarct with encephalomalacia. Whi te matter hypodensities suggest chronic microvascular ischemic disease. Cerebral vascular calcificati ons are most pronounced within the vertebrobasilar system. Involutional changes. The calvarium is intact. Prior bilateral lens replacement. The paranasal sinuses, mastoid air cells, and middle ear cavities are clear. IMPRESSION: Chronic findings as above without acute intracranial abnormality. ACT 112: Negative or not required by law. The above report was generated using voice recognition software. It may contain grammatical, syntax o r spelling errors. Electronically signed by: Kenrick Shrestha M.D. 12/23/2021 7:33 AM
[2021-12-23 08:35] LABS: Albumin Globulin Ratio 0.9 (0.9-2); Albumin Level 3.4 gm/dl (3.4-5.0); Bilirubin,Total 0.8 mg/dl (0.2-1.0); Calcium 8.9 mg/dl (8.5-10.1); Creatinine Clr Calc Pharmacy 35.1 ml/min; Est GFR (African American) 57.4 ml/min; Est GFR (Non-African American) 49.5 ml/min; Globulin 3.8 gm/dl (2.5-4.0); Phosphorus 2.8 mg/dl (2.5-4.9); Potassium 3.2 mmol/L (3.5-5.1); Total Protein 7.2 gm/dl (6.0-8.3)
[2021-12-23] MEDS ORDERED: POTASSIUM CHLORIDE 20 MEQ/15 ML UDC PO STA (08:44)
[2021-12-23] MEDS: INSULIN ASPART PER UNIT SC SCH ×4 (08:50→20:46)
[2021-12-23] MEDS: INSULIN HUMAN NPH SC SCH ×2 (08:51→18:03)
[2021-12-23] MEDS: predniSONE 20 MG TAB PO SCH (08:52)
[2021-12-23] MEDS: amLODIPine BESYLATE 5 MG TAB PO SCH (09:00)
[2021-12-23] MEDS: TELMISARTAN 40 MG TAB PO SCH (09:00)
[2021-12-23] MEDS: METOPROLOL SUCC 25MG EXT REL TAB PO SCH ×2 (09:00→20:42)
[2021-12-23] MEDS: DULoxetine HCL 20 MG CAP PO SCH (09:01)
[2021-12-23] MEDS: ROSUVASTATIN CALCIUM 20 MG TAB PO SCH (09:03)
[2021-12-23] MEDS: FUROSEMIDE 40 MG TAB PO SCH (09:03)
[2021-12-23 09:52] LABS: Hematocrit (blood only) 36.1 % (37-47); Hemoglobin 9.5 g/dL (12.0-16.0); Mean Corpuscular Hgb Conc 26.3 g/dL (32-36); Mean Corpuscular Volume 72.3 fL (80-100); Nucleated RBC # (auto) 0.07 K/uL (0-0); Nucleated RBC % (auto) 0.5 %; Platelet Count 145 K/uL (130-400); RDW Coefficient of Variation 21.9 % (11.5-14.5); RDW Standard Deviation 51.9 fL (36.4-46.3); Red Blood Count 4.99 M/uL (4.2-5.4); White Blood Count 13.33 K/uL (4.8-10.8)
[2021-12-23 09:55] LABS: Anisocytosis Present; Basophils # (auto) 0.02 K/uL (0-0.2); Basophils % (auto) 0.2 %; Eosinophils # (auto) 0.12 K/uL (0-0.5); Eosinophils % (auto) 0.9 %; Immature Granulocytes # (auto) 0.05 K/uL (0.00-0.02); Immature Granulocytes % (auto) 0.4 %; Lymphocytes # (auto) 1.54 K/uL (1.2-3.4); Lymphocytes % (auto) 11.6 %; Monocytes # (auto) 1.87 K/uL (0.11-0.59); Neutrophils # (auto) 9.73 K/uL (1.4-6.5); Neutrophils % (auto) 72.9 %; Platelet Estimate Decreased (Normal); Polychromasia 1+; Spherocytes 1+
--- NOTE | 2021-12-23 10:30 | Ultrasound Report ---
US abdomen limited HISTORY: 86 years-old Female abnormal liver enzymes elevated LFTs COMPARISON: Renal ultrasound 05/19/2016, CT abdomen and pelvis 07/04/2011 TECHNIQUE: Multiple real-time sonographic images of the abdominal right upper quadrant were obtained assessing grayscale appearance and color flow FINDINGS: Limited study secondary to patient body habitus and lack of cooperation. The pancreas is obscured by bowel gas. Heterogeneous mass within the abdominal right upper quadrant measures 7.8 x 6.9 x 8.1 cm w ith areas of central color flow. This is either within or extrinsic to the liver. Cholelithiasis with out gallbladder wall thickening or pericholecystic fluid. Negative sonographic [place]'s sign. Nonvisu alization of the common bile duct. The right kidney is not visualized. The patient requested the exam be terminated. IMPRESSION: 1. Limited exam. 2. 8.1 cm heterogeneous mass is either within or extrinsic to the liver. This finding is suspicious f or malignancy and correlation with a CT abdomen and pelvis with IV contrast is recommended. 3. Cholelithiasis without sonographic evidence of acute cholecystitis. ACT 112: Negative or not required by law. The above report was generated using voice recognition software. It may contain grammatical, syntax o r spelling errors. Electronically signed by: Kenrick Shrestha M.D. 12/23/2021 10:28 AM
[2021-12-23] MEDS: RIVAROXABAN 15 MG TAB PO SCH (16:21)
--- NOTE | 2021-12-23 18:07 | Hospitalist Progress Note ---
Date of Service December 23, 2021 Assessment & Plan (1) Acute alteration in mental status: Plan: May be progressive dementia; appears to be doing better, observe (2) CHF exacerbation: Plan: Suspected hypoxia secondary to same and underlying valvular heart disease; p.o. Lasix from 40 mguptitrate as needed does appear mitral valve disease in echo as far back as 2014; subsequently has seen cardiology in 2019 at least; discussed with son Levon-they decided outpatient follow-up at present (3) Acute exacerbation of chronic obstructive pulmonary disease: Plan: At present I see no evidence of COPD exacerbation- stop steroids (4) Diabetes type 2, uncontrolled: Plan: Sugars in good range, pharmacy following (5) Anemia: Plan: Microcytic; iron studies do not suggest iron deficiencyfollow; no need for IV iron (6) HTN (hypertension): Plan: Fluctuating, no change (7) Transaminitis: Plan: Right upper quadrant ultrasound obtained, shows a suspected massCT scan (8) 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 - Continue Xarelto - Continue statin (9) Atrial fibrillation: Plan: Now in normal sinus. - Continue beta-hank - Continue Xarelto (10) Depression: Plan: - Continue home duloxetine (11) DVT prophylaxis: Plan: On Xarelto for afib Code status - Son confirms DNR/DNI. Plan: Hypokalemiareplace Leukocytosis likely steroid related Disposition pending Admission and Anticipated Discharge Date Admission Date: December 19, 2021 Subjective Follow-up of presentation with mental status changes-doing generally better; no specific complaints or new issues Physical Exam Physical Exam: Constitutional and general: Confused, looks biologic age Head and face: No puffiness, atraumatic Eyes: No scleral icterus, extraocular movements normal Neck: Supple, no JVD Musculoskeletal: No acute joint swelling, no bony abnormalities Skin/dermatologic/integument: No rash, no purpura Hematologic and lymphatic: pallor +, no petechia Gastrointestinal/abdomen: Nondistended, soft, nonacute Neurologic: Cranial nerves intact, nonfocal Psychiatry: Awake, alert, pleasant, communicative Cardiovascular: Heart rhythm regular, no rub, systolic murmur about 3 x 6, soft diastolic murmur, no gallop Respiratory: Chest movements equal, no use of accessory muscles, no adventitious sounds Extremities: edema minimal no cyanosis Results & Data Results & Data ([facility]) Vital Signs (Past 12 Hours) Vital Signs Temp Pulse Pulse Resp BP Pulse Ox 12/23/21 15:00 36.6 C 74 20 144/79 H 98 12/23/21 10:44 37.0 C 70 18 161/86 H 94 Laboratory Results Laboratory Results - last 24 hr 12/22/21 12/23/21 12/23/21 20:39 06:57 06:57 WBC 13.33 H RBC 4.99 Hgb 9.5 L Hct 36.1 L MCV 72.3 L MCH 19.0 L MCHC 26.3 L RDW Std Deviation 51.9 H RDW Coeff of Yohannes 21.9 H Plt Count 145 Immature Gran % (Auto) 0.4 Neut % (Auto) 72.9 Lymph % (Auto) 11.6 [place] % (Auto) 14.0 Eos % (Auto) 0.9 Baso % (Auto) 0.2 Neut # (Auto) 9.73 H Lymph # (Auto) 1.54 [place] # (Auto) 1.87 H Eos # (Auto) 0.12 Baso # (Auto) 0.02 Immature Gran # (Auto) 0.05 H Absolute Nucleated RBC 0.07 H Nucleated RBC % (auto) 0.5 Platelet Estimate Decreased L Polychromasia 1+ Anisocytosis Present Spherocytes 1+ Sodium 139 Potassium 3.2 L Chloride 98 Carbon Dioxide 31 Anion Gap 10 BUN 42 H Creatinine 1.03 Est Cr Clr Drug Dosing 35.1 Est GFR ( Amer) 57.4 Est GFR (Non-Af Amer) 49.5 POC Glucose 266 H Fasting Glucose 116 H Calcium 8.9 Phosphorus 2.8 Magnesium 2.0 Total Bilirubin 0.8 AST 62 H ALT 60 H Alkaline Phosphatase 142 H Total Protein 7.2 Albumin 3.4 Globulin 3.8 Albumin/Globulin Ratio 0.9 12/23/21 12/23/21 12/23/21 08:14 12:01 16:55 WBC RBC Hgb Hct MCV MCH MCHC RDW Std Deviation RDW Coeff of Yohannes Plt Count Immature Gran % (Auto) Neut % (Auto) Lymph % (Auto) [place] % (Auto) Eos % (Auto) Baso % (Auto) Neut # (Auto) Lymph # (Auto) [place] # (Auto) Eos # (Auto) Baso # (Auto) Immature Gran # (Auto) Absolute Nucleated RBC Nucleated RBC % (auto) Platelet Estimate Polychromasia Anisocytosis Spherocytes Sodium Potassium Chloride Carbon Dioxide Anion Gap BUN Creatinine Est Cr Clr Drug Dosing Est GFR ( Amer) Est GFR (Non-Af Amer) POC Glucose 121 H 294 H 194 H Fasting Glucose Calcium Phosphorus Magnesium Total Bilirubin AST ALT Alkaline Phosphatase Total Protein Albumin Globulin Albumin/Globulin Ratio PG Care Time/CCT Total # of Minutes Spent Total Time Spent with Patient: Total time spent is greater than 50% in coordination of care (as documented) at patient's floor/unit and/or counseling patient: Coding Level of Care Code 76400 Subseq Hosp Care Lvl 2 Diagnoses Acute alteration in mental status R41.82 CHF exacerbation I50.9 Acute exacerbation of chronic obstructive pulmonary disease J44.1 Diabetes type 2, uncontrolled E11.65 Anemia D64.9 HTN (hypertension) I10 Transaminitis R74.01 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
[2021-12-24 08:24] LABS: Albumin Globulin Ratio 0.9 (0.9-2); Albumin Level 3.4 gm/dl (3.4-5.0); Bilirubin,Total 0.8 mg/dl (0.2-1.0); Calcium 8.9 mg/dl (8.5-10.1); Creatinine Clr Calc Pharmacy 40.2 ml/min; Est GFR (African American) 67.6 ml/min; Est GFR (Non-African American) 58.3 ml/min; Globulin 3.9 gm/dl (2.5-4.0); Phosphorus 2.1 mg/dl (2.5-4.9); Potassium 3.1 mmol/L (3.5-5.1); Total Protein 7.3 gm/dl (6.0-8.3)
[2021-12-24] MEDS: INSULIN ASPART PER UNIT SC SCH ×4 (08:35→20:26)
[2021-12-24 09:00] LABS: Hematocrit (blood only) 39.8 % (34.1-44.9); Hemoglobin 10.4 g/dl (12.0-16.0); Mean Corpuscular Hemoglobin 18.9 pg (25.0-34.0); Mean Corpuscular Hgb Conc 26.1 g/dL (32.0-36.0); Mean Corpuscular Volume 72.4 fL (80.0-100.0); Platelet Count 164 K/uL (130-400); RDW Coefficient of Variation 24.2 % (11.5-14.5); RDW Standard Deviation 49.3 fL (36.4-46.3); White Blood Count 13.56 K/ul (4.8-10.8)
[2021-12-24 09:03] LABS: Anisocytosis Present; Basophils # (auto) 0.04 K/uL (0-0.2); Basophils % (auto) 0.3 %; Eosinophils # (auto) 0.14 K/uL (0-0.50); Hypochromasia Present; Immature Granulocytes # (auto) 0.09 K/uL (0.00-0.02); Immature Granulocytes % (auto) 0.7 %; Lymphocytes # (auto) 1.24 K/uL (1.2-3.4); Lymphocytes % (auto) 9.1 %; Monocytes # (auto) 1.18 K/uL (0.24-0.82); Monocytes % (auto) 8.7 %; Neutrophils # (auto) 10.87 K/uL (1.4-6.5); Neutrophils % (auto) 80.2 %; Polychromasia 1+
[2021-12-24] MEDS: ROSUVASTATIN CALCIUM 20 MG TAB PO SCH (09:20)
[2021-12-24] MEDS: INSULIN HUMAN NPH SC SCH (09:20)
[2021-12-24] MEDS: DULoxetine HCL 20 MG CAP PO SCH (09:20)
[2021-12-24] MEDS: TELMISARTAN 40 MG TAB PO SCH (09:20)
[2021-12-24] MEDS: METOPROLOL SUCC 25MG EXT REL TAB PO SCH ×2 (09:20→20:23)
[2021-12-24] MEDS: amLODIPine BESYLATE 5 MG TAB PO SCH (09:20)
[2021-12-24] MEDS: FUROSEMIDE 40 MG TAB PO SCH (09:20)
[2021-12-24] MEDS: traMADol HCL 50 MG TABLET PO PRN ×2 (09:24→15:19)
[2021-12-24] MEDS ORDERED: ALBUT/IPRATROP 3MG/0.5MG NEB 3 ML VIAL NEB PRN (10:31)
[2021-12-24] MEDS: ACETAMINOPHEN 325 MG TAB PO PRN ×2 (10:48→17:36)
[2021-12-24] MEDS: ALBUT/IPRATROP 3MG/0.5MG NEB 3 ML VIAL NEB SCH ×2 (12:03→19:09)
[2021-12-24] MEDS: LIDOCAINE 5% 1 PATCH TD SCH (13:09)
--- NOTE | 2021-12-24 14:15 | Hospitalist Progress Note ---
Date of Service December 24, 2021 Assessment & Plan (1) Acute alteration in mental status: Plan: May be progressive dementia; more or less unchanged, follow (2) CHF exacerbation: Plan: Suspected hypoxia secondary to same and underlying valvular heart disease; p.o. Lasix from 40 mguptitrate as needed; mitral valve disease noted on echo as far back as 2014; subsequently has seen cardiology in 2019 at least; discussed with son Levon-they decided outpatient follow-up at present (3) Acute exacerbation of chronic obstructive pulmonary disease: Plan: Noted wheezing for the first time since I been seeing her; scheduled bronchodilation (4) Diabetes type 2, uncontrolled: Plan: Sugars suddenly high value; was on steroids, pharmacy following (5) Anemia: Plan: Microcytic; iron studies do not suggest iron deficiencyfollow; no need for IV iron (6) HTN (hypertension): Plan: Fluctuating, no change (7) Transaminitis: Plan: Right upper quadrant ultrasound obtained, shows a suspected massCT scan ordered but pending (8) 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 - Continue Xarelto - Continue statin (9) Atrial fibrillation: Plan: Now in normal sinus. - Continue beta-hank - Continue Xarelto (10) Depression: Plan: - Continue home duloxetine (11) DVT prophylaxis: Plan: On Xarelto for afib Code status - Son confirms DNR/DNI. Plan: Hypokalemia, hypophosphatemiareplace Leukocytosis likely steroid related still Disposition pending per discussion with case management Admission and Anticipated Discharge Date Admission Date: December 19, 2021 Subjective Follow-up of presentation with mental status changes-no new specific issues Physical Exam Physical Exam: Constitutional and general: Confused, looks biologic age Head and face: No puffiness, atraumatic Eyes: No scleral icterus, extraocular movements normal Neck: Supple, no JVD Musculoskeletal: No acute joint swelling, no bony abnormalities Skin/dermatologic/integument: No rash, no purpura Hematologic and lymphatic: pallor +, no petechia Gastrointestinal/abdomen: Nondistended, soft, nonacute Neurologic: Cranial nerves intact, nonfocal Cardiovascular: Heart rhythm regular, no rub, systolic murmur about 3 x 6, soft diastolic murmur, no gallop Respiratory: Chest movements equal, no use of accessory muscles, bilateral wheezing Extremities: edema +; no cyanosis Results & Data Results & Data ([facility]) Vital Signs (Past 12 Hours) Vital Signs Pulse Resp BP Pulse Ox 12/24/21 13:29 94 12/24/21 12:03 68 19 93 12/24/21 08:20 79 18 159/82 H 96 Laboratory Results Laboratory Results - last 24 hr 12/23/21 12/23/21 12/24/21 16:55 20:38 07:05 WBC 13.56 H RBC 5.50 H Hgb 10.4 L Hct 39.8 MCV 72.4 L MCH 18.9 L MCHC 26.1 L RDW Std Deviation 49.3 H RDW Coeff of Yohannes 24.2 H Plt Count 164 Immature Gran % (Auto) 0.7 Neut % (Auto) 80.2 Lymph % (Auto) 9.1 [place] % (Auto) 8.7 Eos % (Auto) 1.0 Baso % (Auto) 0.3 Neut # (Auto) 10.87 H Lymph # (Auto) 1.24 [place] # (Auto) 1.18 H Eos # (Auto) 0.14 Baso # (Auto) 0.04 Immature Gran # (Auto) 0.09 H Polychromasia 1+ Hypochromasia Present Anisocytosis Present Sodium Potassium Chloride Carbon Dioxide Anion Gap BUN Creatinine Est Cr Clr Drug Dosing Est GFR ( Amer) Est GFR (Non-Af Amer) POC Glucose 194 H 182 H Fasting Glucose Calcium Phosphorus Magnesium Total Bilirubin AST ALT Alkaline Phosphatase Total Protein Albumin Globulin Albumin/Globulin Ratio 12/24/21 12/24/21 12/24/21 07:05 08:24 12:23 WBC RBC Hgb Hct MCV MCH MCHC RDW Std Deviation RDW Coeff of Yohannes Plt Count Immature Gran % (Auto) Neut % (Auto) Lymph % (Auto) [place] % (Auto) Eos % (Auto) Baso % (Auto) Neut # (Auto) Lymph # (Auto) [place] # (Auto) Eos # (Auto) Baso # (Auto) Immature Gran # (Auto) Polychromasia Hypochromasia Anisocytosis Sodium 141 Potassium 3.1 L Chloride 98 Carbon Dioxide 35 H Anion Gap 8 BUN 36 H Creatinine 0.90 Est Cr Clr Drug Dosing 40.2 Est GFR ( Amer) 67.6 Est GFR (Non-Af Amer) 58.3 POC Glucose 102 H 359 H* Fasting Glucose 100 H Calcium 8.9 Phosphorus 2.1 L Magnesium 2.0 Total Bilirubin 0.8 AST 57 H ALT 67 H Alkaline Phosphatase 143 H Total Protein 7.3 Albumin 3.4 Globulin 3.9 Albumin/Globulin Ratio 0.9 12/24/21 12:24 WBC RBC Hgb Hct MCV MCH MCHC RDW Std Deviation RDW Coeff of Yohannes Plt Count Immature Gran % (Auto) Neut % (Auto) Lymph % (Auto) [place] % (Auto) Eos % (Auto) Baso % (Auto) Neut # (Auto) Lymph # (Auto) [place] # (Auto) Eos # (Auto) Baso # (Auto) Immature Gran # (Auto) Polychromasia Hypochromasia Anisocytosis Sodium Potassium Chloride Carbon Dioxide Anion Gap BUN Creatinine Est Cr Clr Drug Dosing Est GFR ( Amer) Est GFR (Non-Af Amer) POC Glucose 368 H* Fasting Glucose Calcium Phosphorus Magnesium Total Bilirubin AST ALT Alkaline Phosphatase Total Protein Albumin Globulin Albumin/Globulin Ratio PG Care Time/CCT Total # of Minutes Spent Total Time Spent with Patient: Total time spent is greater than 50% in coordination of care (as documented) at patient's floor/unit and/or counseling patient: Coding Level of Care Code 86880 Subseq Hosp Care Lvl 2 Diagnoses Acute alteration in mental status R41.82 CHF exacerbation I50.9 Acute exacerbation of chronic obstructive pulmonary disease J44.1 Diabetes type 2, uncontrolled E11.65 Anemia D64.9 HTN (hypertension) I10 Transaminitis R74.01 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
--- NOTE | 2021-12-24 14:45 | Pharmacy Report ---
Pharmacy Glycemic Short Note 2 - Date of Service December 24, 2021 - Glycemic Short BSG Results (Last 24 hours): 12/23/21 12/23/21 12/24/21 16:55 20:38 07:05 POC Glucose 194 H 182 H Fasting Glucose 100 H 12/24/21 12/24/21 12/24/21 08:24 12:23 12:24 POC Glucose 102 H 359 H* 368 H* Fasting Glucose OUTPATIENT ANTIDIABETIC REGIMEN: * Humulin 70/30 - 50 units with breakfast, 20 units with dinner, metformin 500 mg bid ASSESSMENT: 12/24: * Patient received total of 59 units of insulin yesterday, of which 35 were basal (NPH 25 units QAM, 10 units with dinner) * Fasting BSG 102 mg/dL - continue same NPH / steroids now stopped, october d/c evening NPH * Lunch BSG 368 mg/dL - discussed with RN and patient eating late breakfast/eating ice cream. BSG not true pre-prandial since patient just ate * Loosened CF at lunch since not wanting to overcorrect - tightened back at dinner 12/21: * Patient received total 37 units of insulin yesterday; 15 units basal and 22 units bolus. * BSGs yesterday were [id number] mg/dl. Fasting BSG today was 183 mg/dl. * Basal NPH dose increased to 20 units this AM. Prednisone 40 mg daily continued. * Novolog parameters tightened to stress of 2 and goal range tightened as well. Background 12/20/21: * 86 year old admitted with confusion. BSGs last evening on arrival in 30s - treated per hypoglycemia protocol. Per RN, patient's son states she took her insulin yesterday morning * Fasting BSG 154 mg/dL - insulin coverage given over last evening as BSGs trending up quickly in the 300s. Notes suggest patient's BSGs have been very labile at home * Will start conservatively with NPH for this AM. I anticipate BSGs to trend upward with prednisone 40 mg daily. Will star at 0.2 unit/kg of NPH to be given with daily prednisone. Will have loose parameters for novolog for now and target 140-180 goal range PLAN FOR INPATIENT GLYCEMIC CONTROL: * Hold outpatient oral diabetes medications * Basal insulin * NPH 25 units daily * D/c evening NPH as no more steroids ordered * Bolus insulin * NovoLog per scale ACHS or Q6hrs while NPO * Goal Range: Low 120 mg/dL - High 150 mg/dL * Correction Factor: 25 mg/dL/unit * Nutritional / Prandial insulin per carb ratio of 1 unit per 7 grams CHO consumed
[2021-12-24] MEDS: RIVAROXABAN 15 MG TAB PO SCH (15:19)
[2021-12-24] MEDS: POTASSIUM CHLORIDE 20 MEQ/15 ML UDC PO STA ×2 (15:20→15:46)
[2021-12-24] MEDS ORDERED: POTASSIUM CHLORIDE CRTAB 20 MEQ TABCR PO STA (15:45)
[2021-12-24] MEDS: POT PHOSPHATE MONOBASIC W/ SOD TAB PO SCH ×2 (17:36→20:22)
[2021-12-24] MEDS ORDERED: LORazepam 0.25 MG in SYRINGE 0.125 ML IV PRN (20:04)
[2021-12-24] MEDS: DICLOFENAC SOD 1% GEL 100 GM TUBE EXT SCH (20:23)
[2021-12-24] MEDS ORDERED: OPTIRAY 320 100ml IV ONE (21:23)
--- NOTE | 2021-12-24 22:36 | Communication Note ---
Date of Service: December 24, [address] abdomen & pelvis with contrast: Large mass centered within the right hepatic lobe measuring up to 10 cm consistent with malignancy. Dilatation of the biliary tree within the right hepatic lobe secondary to obstruction by the mass. Both metastatic and primary malignancies on the differential. Remainder of the organs are unremarkable. Colonic diverticulosis. Advanced aortobiliac atherosclerotic calcifications. Radiologist Gaetano Caruso MD Study ready at 21:36 and initial results transmitted at 21:56
[2021-12-25] MEDS: ALBUT/IPRATROP 3MG/0.5MG NEB 3 ML VIAL NEB SCH ×3 (00:51→12:13)
[2021-12-25] MEDS: MELATONIN 3 MG TAB PO PRN (01:27)
[2021-12-25] MEDS: traMADol HCL 50 MG TABLET PO PRN (01:27)
[2021-12-25] MEDS: ACETAMINOPHEN 325 MG TAB PO PRN (07:44)
[2021-12-25] MEDS: ROSUVASTATIN CALCIUM 20 MG TAB PO SCH (07:46)
[2021-12-25] MEDS: DULoxetine HCL 20 MG CAP PO SCH (07:46)
[2021-12-25] MEDS: FUROSEMIDE 40 MG TAB PO SCH (07:46)
[2021-12-25] MEDS: POT PHOSPHATE MONOBASIC W/ SOD TAB PO SCH ×4 (07:46→20:51)
[2021-12-25] MEDS: amLODIPine BESYLATE 5 MG TAB PO SCH (07:47)
[2021-12-25] MEDS: METOPROLOL SUCC 25MG EXT REL TAB PO SCH ×2 (07:47→20:51)
[2021-12-25] MEDS: DICLOFENAC SOD 1% GEL 100 GM TUBE EXT SCH ×2 (07:47→20:51)
[2021-12-25] MEDS: LIDOCAINE 5% 1 PATCH TD SCH (07:47)
[2021-12-25] MEDS: TELMISARTAN 40 MG TAB PO SCH (08:11)
[2021-12-25] MEDS: oxyCODONE HCL IR 5 MG TAB (IMMEDIATE RELEASE) PO PRN ×3 (08:11→18:28)
[2021-12-25] MEDS: INSULIN HUMAN NPH SC SCH (08:58)
[2021-12-25] MEDS: MOXIFLOXACIN HCL 0.5% OP SOLN 3 ML BTL OPL SCH ×3 (08:59→20:52)
[2021-12-25 09:02] LABS: Alanine Aminotransferase 75 U/L (7-52); Albumin Globulin Ratio 0.9 (0.9-2); Albumin Level 3.2 gm/dl (3.4-5.0); Alkaline Phosphatase 141 U/L (34-104); Anion Gap 10 (3-11); Bilirubin,Total 0.8 mg/dl (0.2-1.0); Blood Urea Nitrogen 37 mg/dl (6-23); Calcium 8.1 mg/dl (8.5-10.1); Carbon Dioxide 25 mmol/L (21-32); Chloride 99 mmol/L (98-107); Creatinine Clr Calc Pharmacy 41.1 ml/min; Est GFR (African American) 69.4 ml/min; Est GFR (Non-African American) 59.9 ml/min; Globulin 3.7 gm/dl (2.5-4.0); Glucose Fasting 77 mg/dl (70-99); Sodium 134 mmol/L (136-145); Total Protein 6.9 gm/dl (6.0-8.3)
[2021-12-25] MEDS: INSULIN ASPART PER UNIT SC SCH ×4 (09:03→20:58)
--- NOTE | 2021-12-25 09:28 | CT Scan Report ---
ABDOMEN AND PELVIS CT WITH IV CONTRAST CT DOSE: 669.87 mGy.cm HISTORY: Follow up study in a patient with a large hepatic mass Mass seen on right upper quadrant ul trasound TECHNIQUE: Multiaxial CT images of the abdomen and pelvis were performed following the IV administrat ion of 94 cc of Optiray, A dose lowering technique was utilized adhering to the principles of ALARA. COMPARISON STUDY: Abdominal ultrasound 12/23/2021 CT abdomen pelvis 07/04/2011 FINDINGS: Cardiomegaly with mitral and aortic annular calcifications. Mild right hemidiaphragmatic el evation with subsegmental bibasilar atelectasis/scarring. There is no pneumatosis or pneumoperitoneum . There are a few scattered calcifications noted throughout the mildly atrophic pancreas which may re present sequela of chronic pancreatitis. 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 Possible 7 mm hypodense nodul e of the left adrenal gland is suboptimally evaluated secondary to motion artifact. Contracted gallbl adder is also suboptimally visualized secondary to motion. The recently described cholelithiasis is n ot definitively seen by CT. There is a large heterogeneously enhancing mass with areas of suggested probable central necrosis wit hin the right hepatic lobe measuring 9.3 x 7.9 x 9.4 cm. There is an additional area of ill-defined d ecreased attenuation within the inferior right hepatic lobe measuring 4.5 cm on image 27 series 2. Th ere is moderate intrahepatic biliary ductal dilation within the right lobe of the liver with displace ment of the adjacent hepatic vasculature. The portal vein appears patent. There are a few subcentimeter hypodensities of the kidneys which are too small to characterize and fa vor probable cysts. Symmetric enhancement of the kidneys without hydronephrosis. Duplicated renal col lecting systems and ureters noted on the right. Mild urinary bladder wall thickening is nonspecific. Hysterectomy. Extensive atherosclerosis of the abdominal aorta and branch vessels. There is approxima tely 50% stenosis of the infrarenal aorta image 182 secondary to prominent calcified plaque. Multifoc al luminal narrowing of the iliac arteries included probable high-grade stenosis at the origin of the left common iliac artery with additional high-grade stenosis of the left internal iliac and right co mmon femoral arteries. Nonspecific prominent periportal and precaval lymph nodes measure up to 9-10 m m. Tiny hiatal hernia redemonstrated. Colonic diverticulosis without acute diverticulitis. Mild fecal re tention. The appendix is not definitively seen. No ascites or mesenteric inflammation. Unremarkable s oft tissues. Heterogeneous demineralized appearance of the bones. Mild lumbar levoscoliosis. Posterio r disc osteophyte complex formations are also noted at L2-L3 and L4-L5. There is high-grade stenosis at L2-L3 from the posterior disc osteophyte complex. Age-indeterminate Schmorl's nodes are also prese nt at L2-L3 with mild likely degenerative related paravertebral edema. IMPRESSION: 1. Large heterogeneously enhancing right hepatic lobe mass with areas of central necrosis overall zuleyka sures up to 9.4 cm resulting in right hepatic lobe intrahepatic biliary ductal dilation with displace ment of the adjacent hepatic vasculature. Additionally, there is shunting versus a satellite lesion w ithin the inferior right hepatic lobe. Primary hepatic malignancy is favored such as cholangiocarcino ma. Correlate with alpha-fetoprotein level to exclude hepatocellular carcinoma. 2. Borderline enlarged periportal and precaval lymph nodes are nonspecific. 3. No bowel obstruction or bowel wall thickening. 4. Colonic diverticulosis. 5. Tiny hiatal hernia. 6. Extensive atherosclerosis. There is 50% luminal narrowing of the infrarenal aorta with high-grade stenosis of the left iliac and right common femoral arteries. 7. Lucent foci at L2-L3 are likely on a degenerative basis with age-indeterminate L2 inferior endplat e Schmorl's node. 8. Additional findings as above. ACT 112: Negative or not required by law. The above report was generated using voice recognition software. It may contain grammatical, syntax o r spelling errors. Electronically signed by: Kenrick Shrestha M.D. 12/25/2021 9:26 AM
[2021-12-25 09:49] LABS: Potassium 3.8 mmol/L (3.5-5.1)
[2021-12-25 11:00] LABS: Hematocrit (blood only) 42.6 % (34.1-44.9); Hemoglobin 11.2 g/dl (12.0-16.0); Mean Corpuscular Hemoglobin 19.5 pg (25.0-34.0); Mean Corpuscular Hgb Conc 26.3 g/dL (32.0-36.0); Mean Corpuscular Volume 74.2 fL (80.0-100.0); Platelet Count 102 K/uL (130-400); Red Blood Count 5.74 M/uL (3.93-5.22); White Blood Count 10.75 K/ul (4.8-10.8)
[2021-12-25 11:27] LABS: Anisocytosis Present; Basophils # (auto) 0.04 K/uL (0-0.2); Basophils % (auto) 0.4 %; Echinocytes 1+; Eosinophils # (auto) 0.31 K/uL (0-0.50); Eosinophils % (auto) 2.9 %; Hypochromasia Present; Immature Granulocytes # (auto) 0.06 K/uL (0.00-0.02); Immature Granulocytes % (auto) 0.6 %; Lymphocytes # (auto) 0.82 K/uL (1.2-3.4); Lymphocytes % (auto) 7.6 %; Monocytes # (auto) 1.16 K/uL (0.24-0.82); Monocytes % (auto) 10.8 %; Neutrophils # (auto) 8.36 K/uL (1.4-6.5); Neutrophils % (auto) 77.7 %; Platelet Estimate Decreased (Normal)
--- NOTE | 2021-12-25 12:34 | Palliative Care Consultation ---
Date of Consultation December 25, 2021 Assessment & Plan (1) Pain: Multiple complaints of pain in her knees and back. She has lidocaine patch on her back and diclofenac gel for her knees. Tramadol has not been effective. Oxycodone provides some relief but not sustained. Will discontinue tramadol and increase dose of oxycodone for pain. LBM was 7/6. Will add senna for bowel prophylaxis. (2) Palliative care encounter: I spoke with her son, Edin, on the phone. He and his brother, Levon, live with Kaitlin. They are aware of CT results. Dr. Martinez spoke with Levon earlier. Edin expressed concern that with Kaitlin's age and other medical problems, she would not do well with further workup or cancer treatment. He tells me that Kaitlin has said that she would not want CPR or aggressive care if she were seriously ill. He also tells me that their sister, Kaitlin's daughter, a few months ago with pancreatic cancer. He does not feel that they would want to pursue further cancer treatment but would rather focus on symptom management. Kaitlin has said that she wants to go home and would benefit from being in her home environment with her dementia. Edin is familiar with hospice and he tells me that he and Levon would want to care for her at home with hospice. Discussed with case management. (3) Liver mass: (4) COPD (chronic obstructive pulmonary disease): (5) (HFpEF) heart failure with preserved ejection fraction: History of Present Illness Reason for Consultation: Goals of care Requesting Physician: Dr. Martinez Attending Physician: Aravind Martinez MD History of Present Illness 86 yo lady who was admitted with COPD exacerbation and pulmonary edema with valvular heart disease. She was noted to have elevated transaminases during her hospitalization and was evaluated by abdominal US and subsequent CT which showed large heterogeneous mass in her liver with central necrosis. There is an additional lesions in the the inferior right lobe. She apparently had some baseline dementia and has had variable confusion during her hospitalization but was able to read the clock in her room, tell me her age and ask me about her CT results. She is very restless and complains of back pain. She has a lidocaine patch on her back and had dose of oxycodone earlier this morning. She denies abdominal pain, nausea, or dyspnea. Per nursing, her appetite is good. Allergies Allergy/AdvReac Type Severity Reaction Status Date / Time erythromycin base Allergy Intermediate RASH, Verified 12/19/21 16:33 VOMITING zolpidem [From Ambien] Allergy Unknown Unknown Verified 12/19/21 16:33 atorvastatin AdvReac Intermediate MYALGIA Verified 12/19/21 16:33 rosuvastatin AdvReac Intermediate MYALGIA Verified 12/19/21 16:33 Home Medications Medication Instructions Recorded Confirmed Type acetaminophen 650 mg 1,300 mg PO Q12H 08/22/18 12/19/21 History tablet,extended release (Tylenol Arthritis Pain) loratadine 10 mg capsule 10 mg PO DAILY PRN 08/22/18 12/19/21 History multivitamin 1 tab PO QAM 08/22/18 12/19/21 History polyethylene glycol 3350 17 gram 17 g PO DAILY PRN 08/22/18 12/19/21 History oral powder packet (Miralax) rivaroxaban 20 mg tablet (Xarelto) 20 mg PO QPM 08/22/18 12/19/21 History Lactobacillus 1 cap PO DAILY cap 03/13/19 12/19/21 History acidophilus-Bifidobac.animalis 31 billion cell capsule bisacodyl 5 mg tablet,delayed 5 mg PO DAILY PRN tab 03/13/19 12/19/21 History release blood-glucose meter (OneTouch #1 ea 03/13/19 12/08/21 History Verio Flex Start) docusate sodium 100 mg capsule 100 mg PO QAM 12/19/19 12/19/21 History OneTouch Verio test strips (blood #400 ea NS 09/29/20 12/08/21 Rx sugar diagnostic) cholecalciferol (vitamin D3) 50 4,000 unit PO DAILY tab 12/15/20 12/19/21 History mcg (2,000 unit) tablet (Vitamin D3) Novofine 32 32 gauge x 1/4" needle #200 ea NS 04/27/21 12/08/21 Rx (pen needle, diabetic) diclofenac sodium 1 % topical gel 4 g TOPICAL QID PRN g 07/10/21 12/19/21 History estradiol See Rx Instructions VAGINAL 07/10/21 12/19/21 History .COMPLEX PRN g nystatin 100,000 unit/gram topical 1 applic TOP BID PRN #60 g 07/10/21 12/19/21 Rx powder duloxetine 20 mg capsule,delayed 20 mg PO QAM #30 cap 10/05/21 12/19/21 Rx release magnesium oxide 400 mg PO DAILY 10/08/21 12/19/21 History Humulin 70/30 U-100 Insulin See Rx Instructions SQ QAM #30 ml 10/14/21 12/19/21 Rx KwikPen 100 unit/mL subcutaneous NS (insulin NPH and regular human) tramadol 50 mg tablet 100 mg PO TID PRN #180 tab 10/19/21 12/19/21 Rx metformin 500 mg tablet,extended 500 mg PO BID #180 tab 10/22/21 12/19/21 Rx release 24 hr metoprolol succinate 25 mg 25 mg PO BID #90 tab 10/22/21 12/19/21 Rx tablet,extended release 24 hr furosemide 20 mg tablet 20 mg PO DAILY #90 tab 11/18/21 12/19/21 Rx oxybutynin 3.9 mg/24 hr semiweekly See Rx Instructions .ROUTE 12/07/21 12/19/21 Rx transdermal patch (Oxytrol) .COMPLEX #8 patch telmisartan 40 mg tablet 40 mg PO DAILY #30 tab 12/14/21 12/19/21 Rx Oxygen Home #1 ea 12/15/21 Rx rosuvastatin 40 mg tablet 40 mg PO QAM 12/19/21 12/19/21 History Patient History Medical History Asthma RARELY USES PRN INH Chronic kidney disease, stage I Chronic pain syndrome Chronic renal insufficiency COPD exacerbation Insomnia Loss of protective sensation of skin of foot On home oxygen therapy 2 LPM PRN Osteoarthritis Vaginitis Surgical History History of cataract surgery History of colonoscopy with polypectomy History of hysterectomy History of tonsillectomy History of tooth extraction History of total knee replacement RT History of tubal ligation Family History Brother Anxiety Pancreatic cancer Mother Malignant neoplasm of brain Throat cancer Father Malignant neoplasm of urinary bladder Daughter Pancreatic cancer Denies family history of Ovarian cancer Prostate cancer Myocardial infarction Breast cancer Lung cancer Colorectal cancer Social History Smoking Status: Never smoker Tobacco Type: Cigarettes Age Started Using Tobacco: 17; Age Quit Using Tobacco: 66; packs per day: 1; Cigarettes Per Day: 1 pack per day; Number of Years Since Quit: 5; Second Hand Exposure: No; Hx Alcohol Use: No Hx Substance Use: No Preferred Language: Albanian Communication Ability: Effective Visual Impairment: Limited Hearing Ability: Use of Hearing Aid [employer] Steam Yacht Required: No Beliefs That Will Affect Care: None marital status: Current Living Situation: Family Current Living Situation Comment: home with 2 sons current occupational status: retired How many Children do You have: 3 Feels Safe at Home: Yes Childhood Exposure to Second-Hand Smoke: No caffeine: Yes (drinks coffee in morning ) Dental Care, Regularly: Yes Physical Activity Frequency: Does not Exercise Seatbelt Use: always Sunscreen Use: Yes Assistive Devices: Walker Review of Systems Review of Systems: ESAS Pain 2/3 Dyspnea 0/3 Fatigue 1/3 Nausea 0/3 Anorexia 0/3 Anxiety 1/3 Drowsiness 0/3 PPS 40% Physical Exam Constitutional: restless ENMT: Mouth: oral mucous membranes not dry Respiratory: normal respiratory effort; no labored breathing Gastrointestinal (Abdomen): obese, NT LBM 7/6 Musculoskeletal: Extremities: extremities normal to inspection No tenderness to palpation of back Skin: no jaundice, warm and dry Neurologic: Cognition variable Results & Data ([facility]) Vital Signs (Past 12 Hours) Vital Signs Temp Pulse Resp BP Pulse Ox 12/25/21 12:13 68 16 97 12/25/21 07:42 73 14 130/80 92 12/25/21 07:14 97.3 F L 79 18 119/49 L 93 12/25/21 07:02 68 19 91 12/25/21 00:49 65 18 94 PG Care Time/CCT Total # of Minutes Spent Total Time Spent: 55 Total Time Spent with Patient: Total time spent is greater than 50% in coordination of care (as documented) at patient's floor/unit and/or counseling patient: symptom management, goals of care, family support, coordination of care Coding Level of Care Code 96717 Initial Inpt Care Lvl 2 Diagnoses Pain R52 Palliative care encounter Z51.5 Liver mass R16.0 COPD (chronic obstructive pulmonary disease) J44.9 (HFpEF) heart failure with preserved ejection fraction I50.30
[2021-12-25] MEDS: ACETAMINOPHEN 325 MG TAB PO SCH ×3 (12:37→23:14)
[2021-12-25] MEDS ORDERED: ALBUT/IPRATROP 3MG/0.5MG NEB 3 ML VIAL NEB PRN (13:54)
--- NOTE | 2021-12-25 13:58 | Pharmacy Report ---
Pharmacy Glycemic Short Note 2 - Date of Service December 25, 2021 - Glycemic Short BSG Results (Last 24 hours): 12/24/21 12/24/21 12/25/21 17:06 20:18 06:47 POC Glucose 274 H 187 H Fasting Glucose 77 12/25/21 12/25/21 12/25/21 08:13 12:05 12:06 POC Glucose 98 380 H* 396 H* Fasting Glucose 12/25/21 12:19 POC Glucose 393 H* Fasting Glucose OUTPATIENT ANTIDIABETIC REGIMEN: * Humulin 70/30 - 50 units with breakfast, 20 units with dinner, metformin 500 mg bid ASSESSMENT: 12/25: * Patient received total of 47 units of insulin yesterday, of which 25 units were NPH * Fasting BSG 98 mg/dL - continue to hold evening NPH (since steroids no longer ordered) * Lunch BSG elevated at 393 mg/dL - discussed with RN, patient eating pancakes/syrup for breakfast. Did have RN recheck POC and ensure finger clean and also elevated. RN confirmed patient not snacking * Loosened CF at lunch as concerns for BSG dropping too quickly. Utilized similar parameters as yesterday 12/24: * Patient received total of 59 units of insulin yesterday, of which 35 were basal (NPH 25 units QAM, 10 units with dinner) * Fasting BSG 102 mg/dL - continue same NPH / steroids now stopped, october d/c evening NPH * Lunch BSG 368 mg/dL - discussed with RN and patient eating late breakfast/eating ice cream. BSG not true pre-prandial since patient just ate * Loosened CF at lunch since not wanting to overcorrect - tightened back at dinner 12/21: * Patient received total 37 units of insulin yesterday; 15 units basal and 22 units bolus. * BSGs yesterday were [phone] mg/dl. Fasting BSG today was 183 mg/dl. * Basal NPH dose increased to 20 units this AM. Prednisone 40 mg daily continued. * Novolog parameters tightened to stress of 2 and goal range tightened as well. Background 12/20/21: * 86 year old admitted with confusion. BSGs last evening on arrival in 30s - treated per hypoglycemia protocol. Per RN, patient's son states she took her insulin yesterday morning * Fasting BSG 154 mg/dL - insulin coverage given over last evening as BSGs trending up quickly in the 300s. Notes suggest patient's BSGs have been very labile at home * Will start conservatively with NPH for this AM. I anticipate BSGs to trend upward with prednisone 40 mg daily. Will star at 0.2 unit/kg of NPH to be given with daily prednisone. Will have loose parameters for novolog for now and target 140-180 goal range PLAN FOR INPATIENT GLYCEMIC CONTROL: * Hold outpatient oral diabetes medications * Basal insulin * NPH 25 units daily * D/c evening NPH as no more steroids ordered * Bolus insulin * NovoLog per scale ACHS or Q6hrs while NPO * Goal Range: Low 120 mg/dL - High 150 mg/dL * Correction Factor: 25 mg/dL/unit * Nutritional / Prandial insulin per carb ratio of 1 unit per 7 grams CHO consumed
--- NOTE | 2021-12-25 14:04 | Hospitalist Progress Note ---
Date of Service December 25, 2021 Assessment & Plan (1) Liver mass: Plan: Had mild but persistent LFT abnormalities, I obtained ultrasound that showed a mass; follow-up CT scan suggests malignant mass, cholangiocarcinoma versus hepatocellular; discussed with son Levon, they desire palliative approach (in his words, keep her comfortable); discussed palliative care consultation and they agreed (2) Acute alteration in mental status: Plan: Recent decline, may be progressive dementia; could be paraneoplastic, fluctuating mental statusfollow (3) CHF exacerbation: Plan: Suspected hypoxia secondary to same and underlying valvular heart disease; currently on 40 mg daily Lasix and seems to be doing well, no change, adjust as needed (noted BUN); mitral valve disease noted on echo as far back as 2014; subsequently has seen cardiology in 2019; discussed with stormy Dos Santos (this was prior to detection of liver mass)-they decided outpatient follow-up at present (4) Acute exacerbation of chronic obstructive pulmonary disease: Plan: No wheezing, continue bronchodilation as needed (5) Diabetes type 2, uncontrolled: Plan: Isolated sugar values suddenly high; questionable spurious; did get brief cour se of steroids, pharmacy following (6) Anemia: Plan: Microcytic; iron studies do not suggest iron deficiencyfollow; no need for IV iron (7) HTN (hypertension): Plan: Fluctuating, no change (8) 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 - Continue Xarelto - Continue statin-reassess based on liver parameters, as necessary (9) Atrial fibrillation: Plan: Now in normal sinus. - Continue beta-hank - Continue Xarelto (10) Depression: Plan: - Continue home duloxetine (11) DVT prophylaxis: Plan: On Xarelto for afib Code status - Son confirms DNR/DNI. Plan: Complain of back painLidocaine patch, oxycodone added Mild hyponatremia can be followed Dispositionlikely SNF though inpatient rehab was suggested; would touch base with case management Admission and Anticipated Discharge Date Admission Date: December 19, 2021 Subjective Follow-up of presentation with mental status changes-complain of back pain Physical Exam Physical Exam: Constitutional and general: NAD, looks biologic age Head and face: No puffiness, atraumatic Eyes: No scleral icterus, extraocular movements normal Neck: Supple, no JVD Musculoskeletal: No acute joint swelling, no bony abnormalities Skin/dermatologic/integument: No rash, no purpura Hematologic and lymphatic: pallor +, no petechia Gastrointestinal/abdomen: Nondistended, soft, nonacute Neurologic: Cranial nerves intact, nonfocal Cardiovascular: Heart rhythm regular, no rub, systolic murmur about 3 x 6, soft diastolic murmur, no gallop Respiratory: Chest movements equal, no use of accessory muscles, no adventitious sounds Extremities: LE edema minimal no cyanosis but sacral edema noted Results & Data Results & Data ([facility]) Vital Signs (Past 12 Hours) Vital Signs Temp Pulse Resp BP Pulse Ox 12/25/21 12:13 68 16 97 12/25/21 07:42 73 14 130/80 92 12/25/21 07:14 36.3 C L 79 18 119/49 L 93 12/25/21 07:02 68 19 91 Laboratory Results Laboratory Results - last 24 hr 12/24/21 12/24/21 12/25/21 17:06 20:18 06:47 WBC 10.75 RBC 5.74 H Hgb 11.2 L Hct 42.6 MCV 74.2 L MCH 19.5 L MCHC 26.3 L RDW Std Deviation 51.0 H RDW Coeff of Yohannes 26.0 H Plt Count 102 L Immature Gran % (Auto) 0.6 Neut % (Auto) 77.7 Lymph % (Auto) 7.6 Benzie % (Auto) 10.8 Eos % (Auto) 2.9 Baso % (Auto) 0.4 Neut # (Auto) 8.36 H Lymph # (Auto) 0.82 L Benzie # (Auto) 1.16 H Eos # (Auto) 0.31 Baso # (Auto) 0.04 Immature Gran # (Auto) 0.06 H Platelet Estimate Decreased L Hypochromasia Present Anisocytosis Present Echinocytes 1+ Sodium Potassium Chloride Carbon Dioxide Anion Gap BUN Creatinine Est Cr Clr Drug Dosing Est GFR ( Amer) Est GFR (Non-Af Amer) POC Glucose 274 H 187 H Fasting Glucose Calcium Magnesium Total Bilirubin AST ALT Alkaline Phosphatase Total Protein Albumin Globulin Albumin/Globulin Ratio 12/25/21 12/25/21 12/25/21 06:47 08:13 09:06 WBC RBC Hgb Hct MCV MCH MCHC RDW Std Deviation RDW Coeff of Yohannes Plt Count Immature Gran % (Auto) Neut % (Auto) Lymph % (Auto) Benzie % (Auto) Eos % (Auto) Baso % (Auto) Neut # (Auto) Lymph # (Auto) Benzie # (Auto) Eos # (Auto) Baso # (Auto) Immature Gran # (Auto) Platelet Estimate Hypochromasia Anisocytosis Echinocytes Sodium 134 L Potassium TNP 3.8 D Chloride 99 Carbon Dioxide 25 Anion Gap 10 BUN 37 H Creatinine 0.88 Est Cr Clr Drug Dosing 41.1 Est GFR ( Amer) 69.4 Est GFR (Non-Af Amer) 59.9 POC Glucose 98 Fasting Glucose 77 Calcium 8.1 L Magnesium 2.0 Total Bilirubin 0.8 AST TNP 61 H ALT 75 H Alkaline Phosphatase 141 H Total Protein 6.9 Albumin 3.2 L Globulin 3.7 Albumin/Globulin Ratio 0.9 12/25/21 12/25/21 12/25/21 12:05 12:06 12:19 WBC RBC Hgb Hct MCV MCH MCHC RDW Std Deviation RDW Coeff of Yohannes Plt Count Immature Gran % (Auto) Neut % (Auto) Lymph % (Auto) Benzie % (Auto) Eos % (Auto) Baso % (Auto) Neut # (Auto) Lymph # (Auto) Benzie # (Auto) Eos # (Auto) Baso # (Auto) Immature Gran # (Auto) Platelet Estimate Hypochromasia Anisocytosis Echinocytes Sodium Potassium Chloride Carbon Dioxide Anion Gap BUN Creatinine Est Cr Clr Drug Dosing Est GFR ( Amer) Est GFR (Non-Af Amer) POC Glucose 380 H* 396 H* 393 H* Fasting Glucose Calcium Magnesium Total Bilirubin AST ALT Alkaline Phosphatase Total Protein Albumin Globulin Albumin/Globulin Ratio PG Care Time/CCT Total # of Minutes Spent Total Time Spent with Patient: Total time spent is greater than 50% in coordination of care (as documented) at patient's floor/unit and/or counseling patient: Coding Level of Care Code 81117 Subseq Hosp Care Lvl 2 Diagnoses Acute alteration in mental status R41.82 CHF exacerbation I50.9 Acute exacerbation of chronic obstructive pulmonary disease J44.1 Diabetes type 2, uncontrolled E11.65 Anemia D64.9 HTN (hypertension) I10 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
[2021-12-25] MEDS: RIVAROXABAN 15 MG TAB PO SCH (16:14)
[2021-12-25] MEDS: SENNA 8.6 MG TAB PO SCH (20:50)
[2021-12-26] MEDS: oxyCODONE HCL IR 5 MG TAB (IMMEDIATE RELEASE) PO PRN ×4 (00:08→21:46)
[2021-12-26] MEDS: ACETAMINOPHEN 325 MG TAB PO SCH ×3 (06:02→17:40)
[2021-12-26 07:44] LABS: Albumin Globulin Ratio 0.9 (0.9-2); Albumin Level 3.2 gm/dl (3.4-5.0); Bilirubin,Total 0.7 mg/dl (0.2-1.0); Calcium 8.2 mg/dl (8.5-10.1); Creatinine Clr Calc Pharmacy 24.4 ml/min; Globulin 3.4 gm/dl (2.5-4.0); Magnesium 2.1 mg/dl (1.7-2.4); Phosphorus 5.1 mg/dl (2.5-4.9); Total Protein 6.6 gm/dl (6.0-8.3)
[2021-12-26] MEDS: DICLOFENAC SOD 1% GEL 100 GM TUBE EXT SCH ×2 (08:37→20:41)
[2021-12-26] MEDS: amLODIPine BESYLATE 5 MG TAB PO SCH (08:37)
[2021-12-26] MEDS: DULoxetine HCL 20 MG CAP PO SCH (08:38)
[2021-12-26] MEDS: FUROSEMIDE 40 MG TAB PO SCH (08:38)
[2021-12-26] MEDS: METOPROLOL SUCC 25MG EXT REL TAB PO SCH ×2 (08:39→20:42)
[2021-12-26] MEDS: LIDOCAINE 5% 1 PATCH TD SCH (08:39)
[2021-12-26] MEDS: SENNA 8.6 MG TAB PO SCH ×2 (08:40→20:41)
[2021-12-26] MEDS: MOXIFLOXACIN HCL 0.5% OP SOLN 3 ML BTL OPL SCH ×3 (08:40→20:41)
[2021-12-26] MEDS: ROSUVASTATIN CALCIUM 20 MG TAB PO SCH (08:40)
[2021-12-26] MEDS: POT PHOSPHATE MONOBASIC W/ SOD TAB PO SCH ×4 (08:40→20:42)
[2021-12-26] MEDS: TELMISARTAN 40 MG TAB PO SCH (08:41)
[2021-12-26 08:49] LABS: Anisocytosis Present; Basophils # (auto) 0.14 K/uL (0-0.2); Basophils % (auto) 1.4 %; Eosinophils # (auto) 0.63 K/uL (0-0.50); Eosinophils % (auto) 6.1 %; Hematocrit (blood only) 39.2 % (34.1-44.9); Hemoglobin 10.2 g/dl (12.0-16.0); Immature Granulocytes # (auto) 0.06 K/uL (0.00-0.02); Immature Granulocytes % (auto) 0.6 %; Lymphocytes # (auto) 1.11 K/uL (1.2-3.4); Lymphocytes % (auto) 10.8 %; Mean Corpuscular Hemoglobin 19.2 pg (25.0-34.0); Mean Corpuscular Volume 73.8 fL (80.0-100.0); Monocytes # (auto) 0.88 K/uL (0.24-0.82); Monocytes % (auto) 8.5 %; Neutrophils # (auto) 7.49 K/uL (1.4-6.5); Neutrophils % (auto) 72.6 %; Platelet Count 165 K/uL (130-400); Poikilocytosis Present; RDW Coefficient of Variation 26.3 % (11.5-14.5); RDW Standard Deviation 49.7 fL (36.4-46.3); Red Blood Count 5.31 M/uL (3.93-5.22); White Blood Count 10.31 K/ul (4.8-10.8)
[2021-12-26] MEDS: INSULIN ASPART PER UNIT SC SCH ×4 (09:43→21:00)
[2021-12-26] MEDS: INSULIN HUMAN NPH SC SCH (09:43)
--- NOTE | 2021-12-26 10:32 | Hospitalist Progress Note ---
Date of Service December 26, 2021 Assessment & Plan (1) Liver mass: Plan: - Presumed malignant liver mass - uncertain whether cholangiocarcinoma or hepatocellular carcinoma - Patient's sons do no wish to pursue aggressive w/u or treatment, opting for home with hospice - Palliative care consulted, appreciate assistance - Plan for home with hospice tomorrow 12/27 (2) Acute alteration in mental status: Plan: - Recent decline, suspect progressive dementia, ? paraneoplastic - MS has been waxing/waning throughout hospitalization (3) CHF exacerbation: Plan: - Suspected hypoxia secondary to same and underlying valvular heart disease - Currently on Lasix 40mg daily, clinically compensated - mitral valve disease noted on echo as far back as 2015-seen cardiology in 2019 (4) Diabetes type 2, uncontrolled: Plan: - Remains on lispro insulin and NPH - Pharmacy consulted for glycemic management, appreciate assistance - Blood sugars have improved today from 300s reported 12/25 - Continue accuchecks AC and HS (5) Anemia: Plan: - Microcytic; iron studies do not suggest iron deficiency - H&H stable (6) HTN (hypertension): Plan: - Adequately controlled for hospital setting - Continue to monitor (7) 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 - Continue Xarelto and statin therapy (8) Atrial fibrillation: Plan: Now in normal sinus. - Continue beta-hank - Continue Xarelto (9) Depression: Plan: - Continue home duloxetine (10) DVT prophylaxis: Plan: On Xarelto for afib Code status - Son confirms DNR/DNI. Plan: Plan is for family to take patient home with hospice services on Wednesday 12/27. Will not obtain further laboratory studies. Wean O2 given underlying COPD history, only needs enough O2 to maintain sat of 88-92%. Above has been d/w Dr. Anand Grant. Admission and Anticipated Discharge Date Admission Date: December 19, 2021 Subjective Patient seen on daily rounds. She is resting comfortably in bedside chair, pleasantly confused. She does not relay any complaints at present. She was seen yesterday by Palliative care physician to discuss goals of care after discovering that she has a malignant liver mass. Decision was made by family to take her home with hospice which is to be arranged for tomorrow 12/27. Review of Systems Review of Systems: Accurate ROS is unobtainable d/t patient's confusion related to her dementia Physical Exam Physical Exam: GENERAL: 86 yo obese elderly WF. NAD. LUNGS: Clear to auscultation bilaterally. Bibasilar crackles. No wheezes or rhonchi. CARDIOVASCULAR: Regular rate and rhythm. ABDOMEN: Soft, obese, non-tender and non-distended. BS normoactive x 4 quad. EXTREMITIES: 1+ edema. Non-tender. Peripheral pulses +2/4. NEUROLOGIC: A&O x1. Nonfocal PSYCHIATRIC: Confused but cooperative. Appropriate mood and affect. SKIN: Warm, dry, intact. No rashes or lesions. Results & Data Results & Data ([facility]) Vital Signs (Past 12 Hours) Vital Signs Temp Pulse Resp BP Pulse Ox 12/26/21 07:19 36.4 C L 81 20 147/74 H 94 Laboratory Results 12/26/21 06:19 12/26/21 06:19 PG Care Time/CCT Total # of Minutes Spent Total Time Spent with Patient: Total time spent is greater than 50% in coordination of care (as documented) at patient's floor/unit and/or counseling patient: Coding Level of Care Code 38045 Subseq Hosp Care Lvl 1 Diagnoses Liver mass R16.0 Acute alteration in mental status R41.82 CHF exacerbation I50.9 Diabetes type 2, uncontrolled E11.65 Anemia D64.9 HTN (hypertension) I10 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
--- NOTE | 2021-12-26 13:16 | Pharmacy Report ---
Pharmacy Glycemic Short Note 2 - Date of Service December 26, 2021 - Glycemic Short BSG Results (Last 24 hours): 12/25/21 12/25/21 12/25/21 14:34 17:03 20:45 POC Glucose 311 H* 179 H 130 H Fasting Glucose 12/26/21 12/26/21 12/26/21 06:19 08:17 12:23 POC Glucose 165 H 357 H* Fasting Glucose 126 H 12/26/21 12:24 POC Glucose 376 H* Fasting Glucose OUTPATIENT ANTIDIABETIC REGIMEN: * Humulin 70/30 - 50 units with breakfast, 20 units with dinner, metformin 500 mg bid ASSESSMENT: 12/26: * Blood sugars consistently in the 300s prior to lunch past 3 days in a row, will tighten CR with breakfast only for better prandial coverage * No other changes * Plan to DC home w/ hospice tomorrow 12/25: * Patient received total of 47 units of insulin yesterday, of which 25 units were NPH * Fasting BSG 98 mg/dL - continue to hold evening NPH (since steroids no longer ordered) * Lunch BSG elevated at 393 mg/dL - discussed with RN, patient eating pancakes/syrup for breakfast. Did have RN recheck POC and ensure finger clean and also elevated. RN confirmed patient not snacking * Loosened CF at lunch as concerns for BSG dropping too quickly. Utilized similar parameters as yesterday 12/24: * Patient received total of 59 units of insulin yesterday, of which 35 were basal (NPH 25 units QAM, 10 units with dinner) * Fasting BSG 102 mg/dL - continue same NPH / steroids now stopped, october d/c evening NPH * Lunch BSG 368 mg/dL - discussed with RN and patient eating late breakfast/eating ice cream. BSG not true pre-prandial since patient just ate * Loosened CF at lunch since not wanting to overcorrect - tightened back at dinner 12/21: * Patient received total 37 units of insulin yesterday; 15 units basal and 22 units bolus. * BSGs yesterday were [phone] mg/dl. Fasting BSG today was 183 mg/dl. * Basal NPH dose increased to 20 units this AM. Prednisone 40 mg daily continued. * Novolog parameters tightened to stress of 2 and goal range tightened as well. Background 12/20/21: * 86 year old admitted with confusion. BSGs last evening on arrival in 30s - treated per hypoglycemia protocol. Per RN, patient's son states she took her insulin yesterday morning * Fasting BSG 154 mg/dL - insulin coverage given over last evening as BSGs trending up quickly in the 300s. Notes suggest patient's BSGs have been very labile at home * Will start conservatively with NPH for this AM. I anticipate BSGs to trend upward with prednisone 40 mg daily. Will star at 0.2 unit/kg of NPH to be given with daily prednisone. Will have loose parameters for novolog for now and target 140-180 goal range PLAN FOR INPATIENT GLYCEMIC CONTROL: * Hold outpatient diabetes medications * Basal insulin * NPH 25 units daily * Bolus insulin * NovoLog per scale ACHS or Q6hrs while NPO * Goal Range: Low 120 mg/dL - High 150 mg/dL (except 110-140 at breakfast) * Correction Factor: 25 mg/dL/unit * Nutritional / Prandial insulin per carb ratio of 1 unit per 7 grams CHO consumed at all time except 1 unit per 4 grams CHO consumed at breakfast
[2021-12-26] MEDS: RIVAROXABAN 15 MG TAB PO SCH (16:44)
[2021-12-27] MEDS: ACETAMINOPHEN 325 MG TAB PO SCH ×2 (00:20→06:27)
[2021-12-27] MEDS: oxyCODONE HCL IR 5 MG TAB (IMMEDIATE RELEASE) PO PRN ×2 (05:12→10:22)
[2021-12-27 06:41] LABS: Est GFR (African American) 51.3 ml/min; Est GFR (Non-African American) 44.3 ml/min; Magnesium 2.1 mg/dl (1.7-2.4); Phosphorus 4.3 mg/dl (2.5-4.9)
[2021-12-27] MEDS ORDERED: INSULIN ASPART PER UNIT SC SCH (07:30)
[2021-12-27] MEDS: MOXIFLOXACIN HCL 0.5% OP SOLN 3 ML BTL OPL SCH (09:00)
[2021-12-27] MEDS: FUROSEMIDE 40 MG TAB PO SCH (09:00)
[2021-12-27] MEDS: DICLOFENAC SOD 1% GEL 100 GM TUBE EXT SCH (09:00)
[2021-12-27] MEDS: INSULIN HUMAN NPH SC SCH (09:00)
[2021-12-27] MEDS: TELMISARTAN 40 MG TAB PO SCH (09:01)
[2021-12-27] MEDS: DULoxetine HCL 20 MG CAP PO SCH (09:01)
[2021-12-27] MEDS: amLODIPine BESYLATE 5 MG TAB PO SCH (09:01)
[2021-12-27] MEDS: SENNA 8.6 MG TAB PO SCH (09:01)
[2021-12-27] MEDS: METOPROLOL SUCC 25MG EXT REL TAB PO SCH (09:01)
[2021-12-27] MEDS: POT PHOSPHATE MONOBASIC W/ SOD TAB PO SCH (09:01)
[2021-12-27] MEDS: LIDOCAINE 5% 1 PATCH TD SCH (09:01)
[2021-12-27] MEDS: ROSUVASTATIN CALCIUM 20 MG TAB PO SCH (09:02)
--- NOTE | 2021-12-27 11:27 | Discharge Summary ---
Date of Service December 27, 2021 Admission HPI Per Admitting Provider 86yo F w/ hx of DM and dementia who presents from home due to sons' concern for confusion. The patient is in her room alone and is a poor historian. She is fairly lethargic and hard of hearing, so she wakes up, answers "No" to all my questions, and closes her eyes and falls back asleep. According to notes and the son, the patient has been having progressive cognitive impairment. Per the son, this seems increased since the passing of close family members. She had an episode of atrial fibrillation and stroke, and some of this may be due to hearing and vision problems as well. Additionally, she is somewhat hypoxemic intermittently at home. She was on home O2 for some time, but stopped about 1 year ago. She was prescribed 2L at home by her PCP in mid-November. EMS was called on December 17 because she had home SpO2 of 50% which improved with an increase to 4L NC. Additionally, she has been having very volatile blood sugars, with sugars in the 260 range, then crashing down to the 30s. Finally, they felt that she was going "in and out" of coherence. On my interview, the patient denies any review of systems, but also does not really participate in the conversation. Principal Diagnosis 1. Liver mass, presumed malignant 2. Change in mental status - suspect progressive dementia, possible neoplasm contributing Discharge Exam GENERAL: 86 yo obese elderly WF. NAD. LUNGS: Clear to auscultation bilaterally w/o w/r/r CARDIOVASCULAR: Regular rate and rhythm ABDOMEN: Soft, obese, non-tender and non-distended. BS normoactive x 4 quad. EXTREMITIES: 2+ edema. Non-tender. Peripheral pulses +2/4. NEUROLOGIC: A&O x1. Nonfocal PSYCHIATRIC: Confused but cooperative. Appropriate mood and affect. SKIN: Warm, dry, intact. No rashes or lesions. Discharge Data Allergies Allergy/AdvReac Type Severity Reaction Status Date / Time erythromycin base Allergy Intermediate RASH, Verified 12/19/21 16:33 VOMITING zolpidem [From Ambien] Allergy Unknown Unknown Verified 12/19/21 16:33 atorvastatin AdvReac Intermediate MYALGIA Verified 12/19/21 16:33 rosuvastatin AdvReac Intermediate MYALGIA Verified 12/19/21 16:33 Consultations 12/19/21 16:00 ED Decision to Admit Stat 12/25/21 09:37 Consult Palliative Care Routine Ordered Studies Chest X-Ray 12/19/21 10:26 XR chest 1V portable CLINICAL HISTORY: SOB TECHNIQUE: Single frontal radiograph of the chest was obtained. Comparison: Comparison is made to chest radiograph 11/11/2021 FINDINGS: No lines and tubes are seen. Cardiomegaly is noted. Lungs are underinflated but clear. No evidence of pleural effusion or pneumothorax. IMPRESSION: Cardiomegaly with mild pulmonary edema. ACT 112: Negative or not required by law. Electronically signed by: Osvaldo Sanchez M.D. 12/19/2021 10:[address] 12/19/21 13:10 CT head/brain wo con CLINICAL HISTORY: altered ms Technique: Contiguous axial CT images of the head were acquired from the base of the skull to the vertex without intravenous contrast administration. Images were viewed in brain, subdural and bone windows. Automated dose lowering techniques and/or adjustment according to patient size were utilized for this exam. Comparison: Comparison is made to CT head 08/03/2021 Findings: Areas of decreased attenuation are present in the periventricular and subcortical white matter bilaterally consistent with small vessel ischemic disease. Generalized cerebral atrophy with commensurate enlargement of the ventricles, sulci, and cisterns is also present. There is no acute intracranial hemorrhage or evidence of acute territorial infarction. No shift of the midline structures, mass effect, or extra-axial abnormalities are shown. Atherosclerotic calcifications are present in the intracranial segments of the internal carotid arteries. Encephalomalacia in the left ENVIRONMENTAL INSPECTOR distribution is unchanged from prior exam. Imaged portions of the paranasal sinuses and mastoid air cells are clear. The orbits appear normal. There are no acute fractures of the calvaria or scalp swelling. Impression: No acute intracranial hemorrhage, no evidence of acute territorial infarction or other acute intracranial disease process. ACT 112: Negative or not required by law. Electronically signed by: Osvaldo Sanchez M.D. 12/19/2021 2:05 PM Venous Doppler Study 12/20/21 00:00 RIGHT LOWER EXTREMITY VENOUS DOPPLER CLINICAL HISTORY: R>L leg swelling COMPARISON STUDY: Bilateral lower extremity venous Doppler ultrasound November 13, 2015. TECHNIQUE: Sonography of the deep venous system of the right lower extremity was performed. Compression and augmentation were evaluated. FINDINGS: The right common femoral, superficial femoral and popliteal veins were compressible. Augmentation was normal. Flow was shown within the deep calf vessels although calf vessels were suboptimally visualized. Lower extremity edema is noted. IMPRESSION: No evidence of deep venous thrombus within the right lower extremity although right calf vessels suboptimally visualized. ACT 112: Negative or not required by law. Electronically signed by: Gilmar Benjamin M.D. 12/20/2021 11:[address] 12/23/21 03:37 CT head/brain wo con CLINICAL HISTORY: 86 years-old Female with fell in bathroom. on anticoag. Acute head trauma status post fall TECHNIQUE: Multiple axial CT images of the head were obtained without contrast. A dose lowering technique was utilized adhering to the principles of ALARA. CT DOSE: 614.27 mGy.cm COMPARISON: 12/19/2021 FINDINGS: No acute intracranial hemorrhage, midline shift, intracranial mass, hydrocephalus, territorial ischemia or abnormal extra-axial collection. Chronic left occipital lobe infarct with encephalomalacia. White matter hypodensities suggest chronic microvascular ischemic disease. Cerebral vascular calcifications are most pronounced within the vertebrobasilar system. Involutional changes. The calvarium is intact. Prior bilateral lens replacement. The paranasal sinuses, mastoid air cells, and middle ear cavities are clear. IMPRESSION: Chronic findings as above without acute intracranial abnormality. ACT 112: Negative or not required by law. The above report was generated using voice recognition software. It may contain grammatical, syntax or spelling errors. Electronically signed by: Kenrick Shrestha M.D. 12/23/2021 7:33 AM Abdomen Ultrasound 12/23/21 08:45 US abdomen limited HISTORY: 86 years-old Female abnormal liver enzymes elevated LFTs COMPARISON: Renal ultrasound 05/19/2016, CT abdomen and pelvis 07/04/2011 TECHNIQUE: Multiple real-time sonographic images of the abdominal right upper quadrant were obtained assessing grayscale appearance and color flow FINDINGS: Limited study secondary to patient body habitus and lack of cooperation. The pancreas is obscured by bowel gas. Heterogeneous mass within the abdominal right upper quadrant measures 7.8 x 6.9 x 8.1 cm with areas of central color flow. This is either within or extrinsic to the liver. Cholelithiasis without gallbladder wall thickening or pericholecystic fluid. Negative sonographic [place]'s sign. Nonvisualization of the common bile duct. The right kidney is not visualized. The patient requested the exam be terminated. IMPRESSION: 1. Limited exam. 2. 8.1 cm heterogeneous mass is either within or extrinsic to the liver. This finding is suspicious for malignancy and correlation with a CT abdomen and pelvis with IV contrast is recommended. 3. Cholelithiasis without sonographic evidence of acute cholecystitis. ACT 112: Negative or not required by law. The above report was generated using voice recognition software. It may contain grammatical, syntax or spelling errors. Electronically signed by: Kenrick Shrestha M.D. 12/23/2021 10:28 AM Abdomen/Pelvis CT 12/24/21 18:[address] WITH IV CONTRAST CT DOSE: 669.87 mGy.cm HISTORY: Follow up study in a patient with a large hepatic mass Mass seen on right upper quadrant ultrasound TECHNIQUE: Multiaxial CT images of the abdomen and pelvis were performed following the IV administration of 94 cc of Optiray, A dose lowering technique was utilized adhering to the principles of ALARA. COMPARISON STUDY: Abdominal ultrasound 12/23/2021 CT abdomen pelvis 07/04/2011 FINDINGS: Cardiomegaly with mitral and aortic annular calcifications. Mild right hemidiaphragmatic elevation with subsegmental bibasilar atelectasis/scarring. There is no pneumatosis or pneumoperitoneum. There are a few scattered calcifications noted throughout the mildly atrophic pancreas which may represent sequela of chronic pancreatitis. 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 Possible 7 mm hypodense nodule of the left adrenal gland is suboptimally evaluated secondary to motion artifact. Contracted gallbladder is also suboptimally visualized secondary to motion. The recently described cholelithiasis is not definitively seen by CT. There is a large heterogeneously enhancing mass with areas of suggested probable central necrosis within the right hepatic lobe measuring 9.3 x 7.9 x 9.4 cm. There is an additional area of ill-defined decreased attenuation within the inferior right hepatic lobe measuring 4.5 cm on image 27 series 2. There is moderate intrahepatic biliary ductal dilation within the right lobe of the liver with displacement of the adjacent hepatic vasculature. The portal vein appears patent. There are a few subcentimeter hypodensities of the kidneys which are too small to characterize and favor probable cysts. Symmetric enhancement of the kidneys without hydronephrosis. Duplicated renal collecting systems and ureters noted on the right. Mild urinary bladder wall thickening is nonspecific. Hysterectomy. Extensive atherosclerosis of the abdominal aorta and branch vessels. There is approximately 50% stenosis of the infrarenal aorta image 182 secondary to prominent calcified plaque. Multifocal luminal narrowing of the iliac arteries included probable high-grade stenosis at the origin of the left common iliac artery with additional high-grade stenosis of the left internal iliac and right common femoral arteries. Nonspecific prominent periportal and precaval lymph nodes measure up to 9-10 mm. Tiny hiatal hernia redemonstrated. Colonic diverticulosis without acute diverticulitis. Mild fecal retention. The appendix is not definitively seen. No ascites or mesenteric inflammation. Unremarkable soft tissues. Heterogeneous demineralized appearance of the bones. Mild lumbar levoscoliosis. Posterior disc osteophyte complex formations are also noted at L2-L3 and L4-L5. There is high- grade stenosis at L2-L3 from the posterior disc osteophyte complex. Age- indeterminate Schmorl's nodes are also present at L2-L3 with mild likely degenerative related paravertebral edema. IMPRESSION: 1. Large heterogeneously enhancing right hepatic lobe mass with areas of central necrosis overall measures up to 9.4 cm resulting in right hepatic lobe intrahepatic biliary ductal dilation with displacement of the adjacent hepatic vasculature. Additionally, there is shunting versus a satellite lesion within the inferior right hepatic lobe. Primary hepatic malignancy is favored such as cholangiocarcinoma. Correlate with alpha-fetoprotein level to exclude hepatocellular carcinoma. 2. Borderline enlarged periportal and precaval lymph nodes are nonspecific. 3. No bowel obstruction or bowel wall thickening. 4. Colonic diverticulosis. 5. Tiny hiatal hernia. 6. Extensive atherosclerosis. There is 50% luminal narrowing of the infrarenal aorta with high-grade stenosis of the left iliac and right common femoral arteries. 7. Lucent foci at L2-L3 are likely on a degenerative basis with age- indeterminate L2 inferior endplate Schmorl's node. 8. Additional findings as above. ACT 112: Negative or not required by law. The above report was generated using voice recognition software. It may contain grammatical, syntax or spelling errors. Electronically signed by: Kenrick Shrestha M.D. 12/25/2021 9:26 AM Hospital Course (1) Liver mass: - Imaging prompted by persistently elevated LFTs, first with RUQ ultrasound, then confirmed by CT a/p with contrast-9.4 cm mass in right hepatic lobe with central necrosis - Presumed malignant liver mass - uncertain whether cholangiocarcinoma or hepatocellular carcinoma - Patient's sons do not wish to pursue aggressive w/u or treatment, opting for home with hospice - Palliative care consulted, appreciate assistance - Plan for home with hospice today 12/27 (2) Acute alteration in mental status: - Recent decline, suspect progressive dementia, ? paraneoplastic - MS has been waxing/waning throughout hospitalization (3) CHF exacerbation: - Suspected hypoxia secondary to same and underlying valvular heart disease - Now on Lasix 40mg daily, clinically compensated - mitral valve disease noted on echo as far back as 2014-seen cardiology in 2019 (4) Diabetes type 2, uncontrolled: - Remains on lispro insulin and NPH - Pharmacy consulted for glycemic management, appreciate assistance - Blood sugars have improved from 300s reported 12/25 - Continue accuchecks AC and HS (5) Anemia: - Microcytic; iron studies do not suggest iron deficiency - H&H stable (6) HTN (hypertension): - Adequately controlled for hospital setting - Continue Micardis and Lasix, started on Amlodipine this hospitalization, rx provided (7) 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 - Continue Xarelto and statin therapy (8) Atrial fibrillation: Now in normal sinus. - Continue beta-hank - Continue Xarelto (9) Depression: - Continue home duloxetine Patient is medically stable for discharge home with hospice care. Case management consulted to assist in this process. Family intends to take her back home today at lunchtime. Rx's for OxyIR sent for pain control. Follow up with family doctor. Plan has been d/w Dr. Grant who has also seen this patient prior to discharge and is in agreement with the aforementioned. Total Time Total Time Spent Total Time Spent (In Minutes): >30 minutes Discharge Plan Discharge Items Patient Disposition: Hospice - Home Reason For Visit: CONFUSION Discharge Diagnosis: Liver mass, presumed cancerous Activity: Resume your previous activity Non-emergency contact: Primary Care Provider Call non-emergency contact if: you have any medication questions and your symptoms worsen Follow-up/Referrals: Roderick Nation MD [Primary Care Provider] - Diet: Carb Consistent or DM2 Addtl Attending Provider Instructions: You were hospitalized due to worsening shortness of breath which was felt to be due to an exacerbation of your chronic lung disease. You were treated with a course of antibiotics, steroids, and breathing treatments for this. You were also treated for an accumulation of fluid in your lungs and your dose of Lasix has been increased. During your hospitalization, you were noted to have elevated liver function tests which prompted further investigation with an ultrasound which revealed a mass in your liver. Additional imaging was done which confirmed that the mass in your liver appears cancerous. You and your family have opted not to pursue aggressive work up and treatment for this mass and it has been discussed for you to return to your home with your family and hospice services. Your blood pressure has been elevated during your stay, a new medication called Amlodipine has been prescribed to help better manage your blood pressure. This has been sent to your pharmacy. You were also started on an increased dose of Lasix to manage fluid accumulation. Please take all medications as outlined below. New medications have been sent to your pharmacy. We recommend follow up with your family doctor within 1 week of discharge. If you have any questions following your discharge, you may call the nonemergency number listed on your discharge paperwork. If you have a medical emergency, call 911. Pending Studies at Discharge: No Stand-Alone Forms: My [facility] Medications and DC Order Prescriptions: New furosemide 40 mg Tablet 40 mg PO QAM Qty: 30 RF: 0 amlodipine [Norvasc] 5 mg Tablet 5 mg PO QAM Qty: 30 RF: 0 oxycodone 5 mg tablet 5 mg PO Q4H PRN (Reason: pain) Qty: 20 RF: 0 Continued (DME) OneTouch Verio test strips Strip See Dose Instructions .ROUTE .MEDSUPPLY Qty: 400 RF: 3 cholecalciferol (vitamin D3) [Vitamin D3] 50 mcg (2,000 unit) tablet 4,000 unit PO DAILY RF: 0 (DME) pen needle, diabetic [Novofine 32] 32 gauge x 1/4" needle See Dose Instructions .ROUTE .MEDSUPPLY Qty: 200 RF: 5 duloxetine 20 mg capsule,delayed release(DR/EC) 20 mg PO QAM Qty: 30 RF: 2 magnesium oxide 400 mg magnesium tablet 400 mg PO DAILY RF: 0 Humulin 70/30 U-100 KwikPen 100 unit/mL (70-30) insulin pen See Rx Instructions SQ QAM Qty: 30 RF: 5 tramadol 50 mg tablet 100 mg PO TID PRN (Reason: pain) Qty: 180 RF: 1 metoprolol succinate 25 mg tablet extended release 24 hr 25 mg PO BID Qty: 90 RF: 1 metformin 500 mg tablet extended release 24 hr 500 mg PO BID Qty: 180 RF: 1 Oxytrol 3.9 mg/24 hr patch semiweekly See Rx Instructions .ROUTE .COMPLEX Qty: 8 RF: 2 telmisartan 40 mg tablet 40 mg PO DAILY Qty: 30 RF: 2 (DME) Oxygen Home Liters Per Minute See Rx Instructions .Route Qty: 1 RF: 0 (DME) blood-glucose meter [MediaRoostuch Verio Flex Start] kit See Dose Instructions .ROUTE .MEDSUPPLY Qty: 1 RF: 0 Lacto.acidophilus-Bif.animalis 31 billion cell capsule 1 cap PO DAILY RF: 0 bisacodyl 5 mg tablet,delayed release (DR/EC) 5 mg PO DAILY PRN (Reason: constipation) RF: 0 diclofenac sodium 1 % gel 4 g topical QID PRN (Reason: Pain) RF: 0 estradiol 0.01 % (0.1 mg/gram) cream See Rx Instructions vaginal .COMPLEX PRN (Reason: Itching) RF: 0 nystatin 100,000 unit/gram powder 1 applic TOP BID PRN (Reason: rash) Qty: 60 RF: 2 multivitamin Tablet 1 tab PO QAM RF: 0 polyethylene glycol 3350 [Miralax] 17 gram Powder In Packet 17 g PO DAILY PRN (Reason: Constipation) RF: 0 acetaminophen [Tylenol Arthritis Pain] 650 mg Tablet Extended Release 1,300 mg PO Q12H RF: 0 loratadine 10 mg Capsule 10 mg PO DAILY PRN (Reason: Allergy Symptoms) RF: 0 Xarelto 20 mg Tablet 20 mg PO QPM RF: 0 docusate sodium 100 mg capsule 100 mg PO QAM RF: 0 rosuvastatin 40 mg tablet 40 mg PO QAM RF: 0 Discontinued furosemide 20 mg tablet 20 mg PO DAILY Qty: 90 RF: 3 Discharge Orders: Discharge Order (Routine); Ordered 12/27/21 Ordered By: Julianna Martinez/Other Patient Handouts: Hypoglycemia (Low Blood Sugar), Managing Type 2 Diabetes Admission Data Admit Date/Time: 12/19/21 16:02 Attending Provider: Luis Grant Admit Provider: Luis Grant Primary Care Provider: Roderick Nation Other Providers: [facility] ; Arturo Salmon [facility] ; [place],[facility] [place] ; Jennifer Murguia Other Interventions: Discharge Summary Assessment (RN) Last Done: 12/27/21 10:13 Supervising Physician Co-Signing Physician Notes I supervised Julianna Etienne PA-C on the care of this patient. I interviewed and examined the patient independently of her. The plan is as written in her note except for any following changes/exceptions: None Doing well today. O2 stable on 1L. Ready for discharge home with hospice. 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
== END 2021-12-27 11:59 | disposition hospice, home (50) | DRG 291 ==
LOC: ED 10:05 → 3N 16:02 → SUATTDRO 16:02 → 3N 16:29